=== PATIENT | male | born 1935 | race Caucasian/White ===

== ENCOUNTER → 2018-12-24 | Day surgery (SDC) | payer MEDICARE, SELFPAY | END | disposition home or self-care (01) | PROVIDERS: PCP Internal Medicine; Visit Provider Urology | DX: C67.4 Malignant neoplasm of posterior wall of bladder (principal); I10 Essential (primary) hypertension; I25.10 Atherosclerotic heart disease of native coronary artery without angina pectoris; E78.5 Hyperlipidemia, unspecified; Z85.46 Personal history of malignant neoplasm of prostate; Z79.82 Long term (current) use of aspirin; Z79.899 Other long term (current) drug therapy | CPT/HCPCS: 52204; 88305; 74420; C1769; C1758; J1100; J3010; J2405; J2704; J0690; Q9966; 36415; 80048; 87086 ==

== ENCOUNTER 2019-08-06 11:08 | Emergency (ER) | payer MEDICARE, SELFPAY ==
[2019-08-06 11:41] VITALS: BP 177/87; PULSE 83; RESP 16; TEMP 37.1; O2SAT 98
--- NOTE | 2019-08-06 12:14 | ED.LOWEXIN ---
HPI - Extremity Injury (Lower) General Chief Complaint: Extremity Injury, Lower Stated Complaint: left knee pain Time Seen by Provider: 08/06/19 12:14 Source: patient and RN notes reviewed Mode of arrival: ambulatory Limitations: no limitations History of Present Illness HPI Narrative: This is a 84 years old male presents to the office for an evaluation of left knee pain for a couple day. Pain and swollen is worse this morning. He tried ice and one dose of Advil for pain last night. Denies trauma/injury to his left knee. Denies history of knee replacement or surgery. Related Data Home Medications Medication Instructions Recorded Confirmed chlorthalidone 08/06/19 Allergies Allergy/AdvReac Type Severity Reaction Status Date / Time No Known Allergies Allergy Unknown Unverified 12/18/18 13:29 Review of Systems Review of Systems: Narrative: CONSTITUTIONAL: Denies fever or feeling ill CARDIOVASCULAR: Denies chest pain, palpitation RESPIRATORY: Denies dyspnea GASTROINTESTINAL: Denies nausea, vomiting SKIN: Denies rash MUSCULOSKELETAL:Reports left knee cap pain with swelling without erythema NEUROLOGIC: Denies lightheaded/numbness. PMFSH Comments At time of signature, I agree with nursing past medical, surgical, social and family history. There is no relevant family history pertinent to the presenting complaint. Exam Narrative: Exam Narrative: GENERAL: This is a well-nourished, well-developed patient, in no apparent distress. CARDIOVASCULAR: Regular rate and rhythm without murmurs, gallops, or rubs. RESPIRATORY: Clear to auscultation. Breath sounds equal bilaterally. No wheezes, rales, or rhonchi. GASTROINTESTINAL: Abdomen soft, non-tender, nondistended. Bowel sounds are active. No guarding. NEURO: awake, alert, and oriented to person, place and time. There were no obvious focal neurologic abnormalities. Steady gait EXTREMITIES: Patient is able to bear weight and ambulate with little pain.Left knee without obvious trauma; however there is edematous with warmth to palpation of medial aspect of knee cap.Patient able to extend and flex; however not without pain. Nontender to palpate of the patella. Nontender over the proximal fibular head. Nontender, fullness, or mass of the popliteal fossa. NO quadriceps tenderness. Distal motor and neurovascular status intact. [place] Coma Scale Eye Opening: Spontaneous 4 [place] Coma Scale Motor: Obeys Commands 6 [place] Coma Scale Verbal: Oriented 5 Course Vital Signs Vital signs: Vital Signs Temperature 98.7 F 08/06/19 11:41 Pulse Rate 83 08/06/19 11:41 Respiratory Rate 16 08/06/19 11:41 Blood Pressure 177/87 H 08/06/19 11:41 Pulse Oximetry 98 08/06/19 11:41 Temperature 98.7 F 08/06/19 11:41 Pulse Rate 83 08/06/19 11:41 Respiratory Rate 16 08/06/19 11:41 Blood Pressure 177/87 H 08/06/19 11:41 Pulse Oximetry 98 08/06/19 11:41 MDM - Extremity Injury (Lower) MDM Narrative Medical decision making narrative: X-ray is not indicated at this time since patient did not have direct trauma or injury; patient is in agreement. Pain and swelling is likely due to arthritis, bursitis or tendinitis discussed with patient. Elevated BP noted: patient is informed that blood pressure is reading is high, recommend follow-up with his doctor in 2 weeks to recheck. Discharge instructions reviewed with patient, as well as provided in writing per nursing staff. The instructions also include specific and strict return/GO TO THE ER as well as f/u information. All questions have been answered, and the patient deny any further questions with discharge and discharge plan. Differential Diagnosis Differential diagnosis: Likely acute internal derangement of knee and other (Effusion, bursitis,sprain) Critical Care Time Critical Care Time Critical Care Time: No Discharge Plan Discharge Clinical Impression: Bursitis of left knee Qualifiers: Knee bursitis loca
== END 2019-08-06 12:34 | disposition home or self-care (01) ==
PROVIDERS: Emergency Provider Nurse Practitioner; PCP Internal Medicine
DX: M70.52 Other bursitis of knee, left knee (principal); I10 Essential (primary) hypertension; E78.00 Pure hypercholesterolemia, unspecified
CPT/HCPCS: 99213; G0463

== ENCOUNTER 2019-11-04 09:07 | Outpatient (CLI) | payer MEDICARE, SELFPAY ==
--- NOTE | 2019-11-04 09:09 | ECG_ITS ---
Measurements Intervals [place] Rate: 63 P: 92 VT: 288 QRS: -65 QRSD: 157 T: 64 QT: 500 QTc: 512 Interpretive Statements SINUS RHYTHM WITH FIRST DEGREE AV BLOCK VENTRICULAR PREMATURE COMPLEX RIGHT BUNDLE BRANCH BLOCK LEFT ANTERIOR FASCICULAR BLOCK ST-T WAVE ABNORMALITY IN LATERAL LEADS- CONSIDER ISCHEMIA ABNORMAL ECG Electronically Signed On 11-04-2019 11:31:41 CDT by Everardo Benitez D.O.
[2019-11-04 09:45] LABS: Basophils Absolute Auto 0.1 K/mm3 (0.0-0.1); Eosinophils Absolute Auto 0.2 K/mm3 (0-0.3); Eosinophils Percent Auto 2.6 % (0-4.4); Hematocrit 38.1 % (42.0-52.0); Hemoglobin 13.2 g/dL (14.0-18.0); Immature Granulocyte Absolute 0.01 K/mm3 (0.00-0.031); Immature Granulocyte Percent A 0.2 % (0-0.5); Lymphocytes Absolute Auto 1.92 K/mm3 (0.9-3.2); Lymphocytes Percent Auto 30.7 % (18.3-44.2); Mean Corpuscular HGB Conc 34.6 g/dl (32-36); Mean Corpuscular Hemoglobin 32.7 pg (26-34); Mean Corpuscular Volume 94.3 fl (80-100); Mean Platelet Volume 10.7 fl (7.4-10.4); Monocytes Absolute Auto 0.4 K/mm3 (0.1-0.6); Monocytes Percent Auto 6.1 % (2.6-8.5); Neutrophils Absolute Auto 3.7 K/mm3 (1.3-6.7); Neutrophils Percent Auto 59.4 % (45.5-73.1); Platelet Count Result 141 k/mm3 (150-375); Red Blood Count 4.04 M/mm3 (4.6-6.20); Red Cell Distribution Width 11.9 % (11.5-14.5); White Blood Count 6.3 K/mm3 (4.5-10.0)
[2019-11-04 09:57] LABS: Anion Gap 9 mmol/L (8-16); Blood Urea Nitrogen 33 mg/dL (9-20); Carbon Dioxide 27 mmol/L (22-30); Chloride 101 mmol/L (98-107); Estimated Glomerular Filt Rate 25; Glucose 115 mg/dL (75-110); Potassium 4.1 mmol/L (3.4-5.0); Sodium 137 mmol/L (137-145)
[2019-11-04 09:58] LABS: INR 1.2; Prothrombin Time 14.4 Seconds (11.1-14.7)
[2019-11-04 09:59] LABS: Partial Thromboplastin Time 31.7 SECONDS (22.3-36.8)
== END 2019-11-04 09:08 | disposition home or self-care (01) ==
PROVIDERS: PCP Internal Medicine; Visit Provider Urology
DX: Z01.818 Encounter for other preprocedural examination (principal); C67.9 Malignant neoplasm of bladder, unspecified; I10 Essential (primary) hypertension; R94.31 Abnormal electrocardiogram [ECG] [EKG]
CPT/HCPCS: 36415; 80048; 85025; 85610; 85730; 87086; 93005

== ENCOUNTER 2019-11-08 01:27 | Outpatient (CLI) | payer MEDICARE, SELFPAY ==
[2019-11-08 18:03] LABS: SARS-CoV-2 RNA PCR Negative
== END 2019-11-08 01:28 | disposition home or self-care (01) ==
LOC: ANHCOVIDDT 01:28
PROVIDERS: PCP Internal Medicine; Visit Provider Urology
DX: Z01.812 Encounter for preprocedural laboratory examination (principal); Z20.828 Contact with and (suspected) exposure to other viral communicable diseases
CPT/HCPCS: 87635; C9803; U0003

== ENCOUNTER 2019-11-11 01:30 | Day surgery (SDC) | payer MEDICARE, SELFPAY ==
[2019-10-29 13:36] VITALS: BMI 26.7
[2019-11-11] VITALS (8 sets, daily range): BP systolic 98–174; BP diastolic 59–88; PULSE 74–91; RESP 13–20; TEMP 36.4–36.7; O2SAT 95–100
--- NOTE | ~2019-11-11 | XR_ITS ---
EXAMINATION: XR retrograde pyelo w/stent RT DATE: 11/11/2019 08:12 INDICATION: Right-sided stone. TECHNIQUE: Fluoroscopic images from a right internal ureteral stent placement are submitted for kathie cao 23 seconds of fluoroscopy time. FINDINGS: No prior studies for comparison. There is a right double-J internal ureteral stent projecting in expected position, with proximal [place] loop at the level of the renal pelvis and distal loop in the pelvis within the bladder lumen. IMPRESSION: 1. Right internal ureteral stent placement. Please refer to real-time procedural findings for lizeth leonardo. Reviewed, dictated and finalized at location B. IMPRESSION: 1. Right internal ureteral stent placement. Please refer to real-time procedu ral findings for details.
[2019-11-11] MEDS: LACTATED RINGERS 1,000 ML 30 ML IV CONT (06:35)
--- NOTE | 2019-11-11 07:15 | WPDANESEPPF ---
Anes - Initial Pre Proc Eval Procedure: Operation Date: 11/11/19 07:30 Proposed Procedures p Cystoscopy, Right Retrograde Pyelogram, Right Ureteroscopy With Possible Stent Placement - Zurdo Su MD s Trans Urethral Resection Bladder Tumor - Zurdo Su MD Date/Time: 11/11/19 07:15 Surgeon: Zurdo Su MD Pre Op Diagnosis: Prostate CA, Bladder CA Patient Data Age: 84 Gender: M Height: 6 ft 3 in Weight: 90.1 kg Last Vital Signs Temp 98.1 F 11/11/19 06:19 Pulse 91 11/11/19 06:19 Resp 14 11/11/19 06:19 BP 174/78 H 11/11/19 06:19 Pulse Ox 95 11/11/19 06:19 Allergies Allergy/AdvReac Type Severity Reaction Status Date / Time No Known Allergies Allergy Unknown Verified 11/11/19 06:40 Home Medications Medication Instructions Recorded Confirmed Type chlorthalidone 25 mg PO QAM 08/06/19 11/11/19 History amlodipine 5 mg PO QAM 10/29/19 11/11/19 History aspirin [Aspir-81] 81 mg PO DAILY 10/29/19 11/11/19 History metoprolol succinate 100 mg PO QAM 10/29/19 11/11/19 History multivitamin [Multiple Vitamins] 1 tablet PO DAILY 10/29/19 11/11/19 History potassium chloride 20 meq PO QAM 10/29/19 11/11/19 History pravastatin 80 mg PO HS 10/29/19 11/11/19 History quinapril 40 mg PO BID 10/29/19 11/11/19 History terazosin 2 mg PO BID 10/29/19 11/11/19 History Patient hx anesthesia problems: none Family hx anesthesia problems: none PMFSH Past Medical History Medical History (Updated 11/11/19 @ 07:15 by Torito West MD) Hyperlipidemia Hypertension Social History Social History Smoking status: Former smoker Tobacco type: cigars Smoking end date: 02/26/79 Additional smoking assessment comments: SMOKED ~ 1 CIGAR /WEEK FOR ~ 10 YEARS Alcohol intake: current Alcohol use details: VERY RARELY Substance use: never Living arrangements: with family Spiritual care concerns: No Anes - Eval Final PreProcedure Day of Procedure 11/11/19 07:15 Patient weight: normal Heart: regular rate and rhythm Lungs: clear to auscultation Airway: Mallampati scale class II Neurological: alert and oriented Last oral intake: >/= 8 hours ASA classification: III Emergent: no Anesthetic plan: proceed Anesthesia type and monitoring: general LMA and standard monitoring Informed Consent: The patient's anesthetic plan and its attendant risks and benefits were discussed with the patient/family/POA. Questions were solicited and answers provided to the satisfaction of the patient/family/POA.
--- NOTE | 2019-11-11 07:23 | WPDHPUPDATE1 ---
History and Physical Update Update Date/Time: 11/11/19 07:23 History and Physical has been reviewed, including an updated exam of the patient. There are NO changes in the patient's condition. Risks, benefits, and alternatives have been discussed and questions answered. Patient agrees to proceed with procedure.
--- NOTE | 2019-11-11 08:15 | P.OP_ITS ---
Procedure Note - Detailed Date of procedure: 11/11/19 Pre-op diagnosis: Prostate CA, Bladder CA Post-op diagnosis: same Procedure performed: Urethral dilation, cystoscopy, right retrograde pyelogram, transurethral resection of bladder tumor overlying right ureteral orifice, right ureteral stent placement 6 Uzbek contour stent Description of procedure: Patient is taken to the operative suite and correctly identified. Once anesthesia was obtained he is placed in the dorsal lithotomy position and prepped and draped usual sterile fashion. Urethra was dilated to 26 Uzbek. Twenty-two Uzbek cystoscope is inserted. There is no urethral strictures. Bladder itself has no discrete papillary tumors however the right ureteral orifice is is raised and has the appearance of a marble. The orifice appears somewhat friable in addition. A [place] was placed and a retrograde pyelogram was performed. It was noted that there was a significant amount of dilatation just proximal to where the intramural ureter is. We could not get contrast up into the kidney at this point. We exchanged the scope up for a 24 Uzbek resectoscope sheath. The right ureteral orifice and tumor was resected. It was fairly hard in nature. Prior resection had simply revealed granulation tissue. The right ureteral orifice was again on removed. This is a 2nd procedure that this has been performed. We then placed a [place] all the way up to the kidney did a pyelogram which revealed a dilated renal pelvic and calices. A 6 Uzbek contour stent was then placed with the proximal end coiled in the renal pelvis and the distal in the bladder. Bladder was drained 2% viscous lidocaine was placed in the urethra. Patient is taken recovery room stable condition. Will call for results in a week. Will need to discuss possible distal ureterectomy with reimplantation if pathology shows tumor or this continues to recur. Anesthesia: GLMA Surgeon: Zurdo Su MD Estimated blood loss (mL): 0 Drains: Yes Packing: No Pathology: yes Complications: No immediate complications Condition: stable Disposition: PACU
== END 2019-11-11 09:40 | disposition home or self-care (01) ==
PROVIDERS: PCP Internal Medicine; Visit Provider Urology
PROC: (CPT 52352; principal; 2019-11-11 07:30)
PROC: 0TBB8ZZ Excision of Bladder, Via Natural or Artificial Opening Endoscopic (ICD-10-PCS; CPT 52234; 2019-11-11 07:30)
DX: C67.6 Malignant neoplasm of ureteric orifice (principal); C61 Malignant neoplasm of prostate; I10 Essential (primary) hypertension; E78.5 Hyperlipidemia, unspecified; Z79.82 Long term (current) use of aspirin; Z87.891 Personal history of nicotine dependence
CPT/HCPCS: 52234; 74420; 88305; 88307; A9270; C1758; C1769; C2617; J1100; J2405; J2704; J3010; J7120; Q9966

== ENCOUNTER 2019-11-18 07:38 | Emergency (ER) | payer MEDICARE, SELFPAY ==
[2019-11-18] VITALS (7 sets, daily range): BP systolic 115–152; BP diastolic 68–77; PULSE 72–82; RESP 12–18; TEMP 36.7; O2SAT 97
--- NOTE | ~2019-11-18 | XR_ITS ---
EXAMINATION: XR chest 2V EXAM DATE: 11/18/2019 08:24 INDICATION: Syncope. TECHNIQUE: Frontal and lateral projections of the chest obtained and reviewed. Comparison is made to prior examination from 09/16/2006. FINDINGS: The lungs are clear. There are no pleural effusions. The cardiomediastinal silhouette is within normal limits. There is no pneumothorax suspected. The bones and soft tissues are unremarkab le. There is aortic arteriosclerosis. IMPRESSION: No acute cardiopulmonary findings. Reviewed, dictated and finalized at location B.
--- NOTE | ~2019-11-18 | CT_ITS ---
EXAMINATION: CT brain wo con DATE: 11/18/2019 08:21 INDICATION: Syncope. TECHNIQUE: Computed tomography (CT) of the head was performed without intravenous contrast. The mA wa s adjusted according to patient size. Iterative reconstruction technique was employed. The dose-lengt h product was 681.00 mGy-cm. COMPARISON: Head CT 09/16/2006 FINDINGS: There is an acute subarachnoid hemorrhage in the right suprasellar cistern and anterior int erhemispheric fissure and anterior to left frontal lobe. There is no acute ischemic infarct or abnorm al mass lesion. The ventricles are normal in size. There is posterior scalp soft tissue swelling. The orbits are normal. There is complete opacification of the visualized portion of right maxillary sinu s with thickening and sclerosis of the sinus quijano, consistent with chronic sinusitis. The mastoid ai r cells are normal. IMPRESSION: 1. Acute subarachnoid hemorrhage in right suprasellar cistern and anterior interhemispheric fissure a nd anterior to left frontal lobe. I called this result to Dr. Matthew. 2. Chronic sinusitis. Reviewed, dictated and finalized at location A. IMPRESSION: 1. Acute subarachnoid hemorrhage in right suprasellar cistern and anterior inte rhemispheric fissure and anterior to left frontal lobe. I called this result to Dr. Matthew. 2. Chronic sinusitis.
--- NOTE | 2019-11-18 08:15 | ED.SYNCOPE ---
HPI - Syncope General Chief Complaint: Syncope Stated Complaint: SYNCOPAL EPISODE Time Seen by Provider: 11/18/19 07:52 History of Present Illness HPI narrative: Patient is an 84-year-old male who presents the ER with syncope. Woke up this morning was going on his morning walk when he lost consciousness at the dorm woke up to his standing over him. He does not remember any prodrome of rapid heart rate or lightheadedness. He is having no chest pain. He has no confusion at this time but does have mild discomfort over the posterior aspect of his head where he struck the ground. There is a laceration present. He is not on any blood thinners. Patient had a procedure yesterday to excise a bladder tumor. He has had this previously. Reports his urine is little bloody but he is not passing large clots. He has had no dysuria/fever/chills. Related Data Home Medications Medication Instructions Recorded Confirmed chlorthalidone 25 mg PO QAM 08/06/19 11/11/19 amlodipine 5 mg PO QAM 10/29/19 11/11/19 aspirin [Aspir-81] 81 mg PO DAILY 10/29/19 11/11/19 metoprolol succinate 100 mg PO QAM 10/29/19 11/11/19 multivitamin [Multiple Vitamins] 1 tablet PO DAILY 10/29/19 11/11/19 potassium chloride 20 meq PO QAM 10/29/19 11/11/19 pravastatin 80 mg PO HS 10/29/19 11/11/19 quinapril 40 mg PO BID 10/29/19 11/11/19 terazosin 2 mg PO BID 10/29/19 11/11/19 Allergies Allergy/AdvReac Type Severity Reaction Status Date / Time No Known Allergies Allergy Unknown Verified 11/18/19 07:38 Review of Systems Review of Systems: All systems reviewed & are unremarkable except as noted in HPI and below Constitutional: Constitutional: Denies chills, Denies fever(s) and Denies weakness ENT: Denies nasal congestion and Denies sore throat Cardiovascular: Cardiovascular: Denies chest pain, Denies rapid heart rate and Denies radiating jaw, neck or arm pain Respiratory: Respiratory: Denies cough and Denies dyspnea Neurologic: Reports syncope, Denies headache(s), Denies focal weakness and Denies numbness [facility] Past Medical History Medical History (Updated 11/18/19 @ 09:19 by Diego Matthew MD) Hyperlipidemia Hypertension Surgical History Surgical History (Updated 11/18/19 @ 08:18 by Diego Matthew MD) H/O cystoscopy bladder tumor excision Social History Social History Smoking status: Former smoker Tobacco type: cigars Smoking end date: 02/26/79 Additional smoking assessment comments: SMOKED ~ 1 CIGAR /WEEK FOR ~ 10 YEARS Alcohol intake: current Substance use: never Gender identity (if verbalized by the patient): Male Sexual Orientation (if Verbalized by the Patient): Straight or Heterosexual Spiritual care concerns: No Exam Narrative: Exam Narrative: GENERAL: Well-appearing, well-nourished, and in no acute distress. HEAD: Normocephalic, small hematoma with a nickel sized abrasion over posterior aspect of the head. Inferior to this there is a 3 cm horizontal laceration is superficial.. EYES: PERRL and EOMI. NECK: Supple. No midline tenderness. CHEST: Clear to auscultation. No respiratory distress. HEART: Regular rate and rhythm. Normal peripheral pulses. ABDOMEN: Soft, nontender, nondistended. EXTREMITIES: Normal range of motion. No edema. NEURO: Alert and oriented x3. PSYCH: Normal mood and affect. Course Course Emergency Course: Patient and family informed of results. Patient accepted for transfer to [facility] ER. Patient stable. She was orthostatic. Fluids running. Vital Signs Vital signs: Vital Signs Pulse Rate 72 11/18/19 07:40 Respiratory Rate 16 11/18/19 07:40 Blood Pressure 152/77 H 11/18/19 07:40 Pulse Oximetry 97 11/18/19 07:40 Temperature 98.0 F 11/18/19 08:01 Pulse Rate 82 11/18/19 08:36 Respiratory Rate 12 11/18/19 08:01 Blood Pressure 152/71 H 11/18/19 08:36 Pulse Oximetry 97 11/18/19 08:01 [facility] -
[2019-11-18 08:19] LABS: Basophils Percent Auto 0.7 % (0.2-1.2); Eosinophils Absolute Auto 0.3 K/mm3 (0-0.3); Eosinophils Percent Auto 4.4 % (0-4.4); Hematocrit 37.4 % (42.0-52.0); Hemoglobin 13.2 g/dL (14.0-18.0); Immature Granulocyte Absolute 0.02 K/mm3 (0.00-0.031); Immature Granulocyte Percent A 0.4 % (0-0.5); Lymphocytes Absolute Auto 1.34 K/mm3 (0.9-3.2); Lymphocytes Percent Auto 23.5 % (18.3-44.2); Mean Corpuscular HGB Conc 35.3 g/dl (32-36); Mean Corpuscular Hemoglobin 33.2 pg (26-34); Mean Platelet Volume 10.7 fl (7.4-10.4); Monocytes Absolute Auto 0.4 K/mm3 (0.1-0.6); Monocytes Percent Auto 6.3 % (2.6-8.5); Neutrophils Absolute Auto 3.7 K/mm3 (1.3-6.7); Neutrophils Percent Auto 64.7 % (45.5-73.1); Platelet Count Result 151 k/mm3 (150-375); Red Blood Count 3.98 M/mm3 (4.6-6.20); White Blood Count 5.7 K/mm3 (4.5-10.0)
[2019-11-18 08:31] LABS: Anion Gap 8 mmol/L (8-16); Blood Urea Nitrogen 40 mg/dL (9-20); Carbon Dioxide 23 mmol/L (22-30); Chloride 103 mmol/L (98-107); Estimated CRCL calculation 26 ml/min; Estimated Glomerular Filt Rate 26; Glucose 114 mg/dL (75-110); Potassium 4.2 mmol/L (3.4-5.0); Sodium 134 mmol/L (137-145)
[2019-11-18 08:43] LABS: Troponin I 0.021 ng/mL (0.000-0.034)
[2019-11-18] MEDS: SODIUM CHLORIDE 0.9% IV 1,000 ML 999 ML IV CONT (09:14)
--- NOTE | 2019-11-18 09:26 | PC.NURSE ---
Pt neuro intact. Pt son at bedside. Pt aware of POC. Pt questions answered. Pt on monitor. [facility] called and [facility] arranged to take pt to [facility].
[2019-11-18 09:34] LABS: Add Urine Microscopic? YES; Appearance Urine Cloudy (Clear); Bilirubin Urine Negative (Negative); Blood Urine 3+ (Negative); Color Urine Yellow (Yellow); Glucose Urine UA Negative (Negative); Ketones Urine Negative (Negative); Leukocyte Esterase Ur 2+ LEU/UL (Negative); Mucus Urine Rare /lpf; Nitrate Urine Negative (Negative); Protein Urine 2+ mg/dL (Negative); RBC Urine >75 /hpf (0-2); Specific Grav Ur 1.013 (1.001-1.035); Squamous Epithelial Cell Urine Rare /hpf (Few); Urobilinogen Urine Negative mg/dL (<2.0); WBC Urine 21-30 /hpf
== END 2019-11-18 09:47 | disposition short-term general hospital (02) ==
PROVIDERS: Emergency Provider Emergency Medicine; PCP Internal Medicine
DX: I60.9 Nontraumatic subarachnoid hemorrhage, unspecified (principal); I95.1 Orthostatic hypotension; N17.9 Acute kidney failure, unspecified; E78.5 Hyperlipidemia, unspecified; I10 Essential (primary) hypertension; Z87.891 Personal history of nicotine dependence; J32.9 Chronic sinusitis, unspecified; Z79.82 Long term (current) use of aspirin
CPT/HCPCS: 36415; 70450; 71046; 80048; 81001; 84484; 85025; 87086; 96360; 99291; J7030

== ENCOUNTER 2019-12-23 09:41 | Outpatient (CLI) | payer MEDICARE, SELFPAY ==
--- NOTE | ~2019-12-23 | PE_ITS ---
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 TECHNIQUE: Blood glucose level was 110 mg/dL. 8.076 mCi of 18-fluorodeoxyglucose (18-FDG) was adminis tered i.v. Low dose computed tomography (CT) images were acquired from the base of the brain to the p roximal thighs for attenuation correction and anatomic localization. Positron emission tomography (PE T) images were acquired in the same distribution beginning 70 minutes after injection. Images includi ng fused PET/CT images were reconstructed in axial, coronal, and sagittal planes. Automated exposure control technique was employed. The dose-length product was 529.16mGy-cm. COMPARISON: None FINDINGS: Head/neck: There is symmetric increased activity in the oral cavity, submandibular glands, laryngeal muscles and ocular muscles without CT correlate, likely physiologic. No pathologically enlarged cervical lymphad enopathy or suspicious foci of increased FDG uptake in the visualized head or neck. Chest: Respiratory motion in the lungs which limits evaluation of fine pulmonary parenchymal detail as well as definitive measurement of an approximately 4-5 mm right lower lobe nodule which is without evident FDG uptake. Calcified left lower lobe nodule consistent with old granulomatous disease. Heart size i s normal. Atherosclerotic coronary artery calcifications. Aortic valve calcification. Thoracic aorta is normal in caliber. Calcified bilateral hilar and mediastinal lymph nodes consistent with old granu lomatous disease. No pathologically enlarged thoracic lymphadenopathy. There is mild increased FDG up take associated with a 7.3 x 2.5 x 5.8 cm posterior right chest wall mass situated between the ribs a nd the medial margin of the serratus anterior muscle and scapula. The mass demonstrates a striated pa ttern of soft tissue and fat attenuation with location and appearance most consistent with elastofibr karyn dorsi. 5.1 x 3.4 x 1.2 cm homogeneous fat attenuation lipoma in paraspinal musculature posterior to T8 and T9. Abdomen/pelvis/proximal thighs: Physiologic renal accumulation and excretion of FDG activity in the kidneys, bladder and along portio ns of ureters. Right internal ureteral stent with loops formed in the bladder and in the right renal pelvis. Normal degree and heterogenous pattern of increased uptake throughout the liver without radio logic correlate or dominant FDG avid lesion. Scattered hepatic and splenic calcifications consistent with old granulomatous disease. The gallbladder, pancreas and bilateral adrenal glands are normal. Mi ld uptake scattered throughout the bowels without radiologic correlate, also likely physiologic. Post operative change of prior left inguinal hernia repair. There is calcified atherosclerosis of the aort a and many of the other arteries. No other abnormal foci of increased FDG uptake or pathologically e nlarged lymphadenopathy in the abdomen, pelvis or proximal thighs. Musculoskeletal: Severe lower cervical spondylosis. Mild to moderate thoracic and lumbar spondylosis. No suspicious ly tic, blastic or FDG avid bone lesions. Small focus of mild increased FDG uptake in the soft tissues a t the right antecubital fossa likely extravasation at the site of injection. IMPRESSION: 1. No lesion suspicious for metastatic disease. 2. Mild FDG uptake associated with a mixed soft tissue and fat attenuation posterior right chest wall mass most consistent with benign elastofibroma dorsi. 3. Indeterminate 4-5 mm right lower lobe nodule without evident FDG uptake likely sequela of old gran ulomatous disease. If the patient is low risk for lung cancer, no follow-up is needed. If the patient is high risk (i.e., history of smoking or asbestos or significant radiation exposure), optional foll ow-up chest CT could be considered at 12 months.
[2019-12-23 10:03] LABS: Glucose Point of Care 110 (65-105)
== END 2019-12-23 09:42 | disposition home or self-care (01) ==
PROVIDERS: PCP Internal Medicine; Visit Provider Urology
DX: C67.0 Malignant neoplasm of trigone of bladder (principal)
CPT/HCPCS: 78815; A9552

== ENCOUNTER 2020-06-17 07:42 | Outpatient (CLI) | payer MEDICARE, SELFPAY ==
--- NOTE | ~2020-06-17 | CT_ITS ---
EXAMINATION: CT abdomen pelvis wo/w con DATE: 06/17/2020 08:36 INDICATION: Malignant neoplasm of urinary bladder trigone TECHNIQUE: Computed tomography (CT) of the abdomen and pelvis was performed without and subsequently with 130 cc Omnipaque 350 intravenous contrast. Automated exposure control and iterative reconstructi on technique were employed. Exam dose: 1241.61 mGy-cm total exam DLP. COMPARISON: 11/21/2018 CT abdomen pelvis 12/23/2019 PET/CT scan FINDINGS: Mild bibasilar atelectasis and small bilateral pleural effusions. Bilateral lower lobe calcified pulmonary granuloma and calcified hepatic and splenic granulomas, cons istent with old granulomatous disease. Cardiomegaly. No pericardial effusion. No hepatic, splenic, pancreatic or adrenal or right renal space-occupying mass lesion. 12 mm left natasha al cyst. The gallbladder is present. No bile duct or pancreatic duct dilatation. There is mild left hydronephrosis. Status post cystectomy and ileostomy. There is extensive abdominal aortic and bilateral renal artery as well as iliac and femoral artery ca lcifications. No abdominal aortic aneurysm. No intraperitoneal or retroperitoneal or pelvic mass lesi on or adenopathy is evident. There is a small amount of free fluid in the dependent pelvis. There are nondilated fluid containing small bowel segments and small bowel air-fluid levels. There is no appar ent obstruction or intraperitoneal free air. Status post left inguinal herniorrhaphy. Degenerative changes of the included lower thoracic and lumbar spine. No suspicious osteolytic or ost eoblastic lesions. Bilateral hip osteoarthritis. IMPRESSION: Status post cystectomy and ileostomy for history of urinary bladder malignancy Mild left hydronephrosis Cardiomegaly 12 mm left renal cyst Reviewed, dictated and finalized at Location [facility]. Reviewed, dictated and finalized at location A. IMPRESSION: Status post cystectomy and ileostomy for history of urinary bladde r malignancy Mild left hydronephrosis Cardiomegaly 12 mm left renal cyst
[2020-06-17 08:13] LABS: Estimated Glomerular Filt Rate 30
== END 2020-06-17 07:43 | disposition home or self-care (01) ==
PROVIDERS: PCP Internal Medicine; Visit Provider Urology
DX: C67.0 Malignant neoplasm of trigone of bladder (principal); N13.30 Unspecified hydronephrosis; I51.7 Cardiomegaly; N28.1 Cyst of kidney, acquired
CPT/HCPCS: 74178; Q9967

== ENCOUNTER → 2021-07-04 08:02 | Outpatient (REF) | payer MEDICARE, SELFPAY | LOC: ANHLAB 08:02 | PROVIDERS: PCP Internal Medicine; Visit Provider Nurse Practitioner | DX: C44.41 Basal cell carcinoma of skin of scalp and neck (principal) | CPT/HCPCS: 88305; 88331 ==

== ENCOUNTER 2022-02-14 10:24 | Outpatient (CLI) | payer MEDICARE, SELFPAY ==
--- NOTE | ~2022-02-14 | US_ITS ---
Renal-Bladder ultrasound Clinical History: Chronic kidney disease Technique: Real-time sonographic imaging of the kidneys and urinary bladder was performed. Findings: The right kidney measures 8.8 cm in length and the left kidney measures 10.5 cm. There is n o hydronephrosis or renal calculus identified. Renal cortical echogenicity is increased, with probabl e bilateral cortical thinning. No renal mass lesion is identified. The urinary bladder has been previously resected. Impression: Increased renal echogenicity is compatible with chronic medical renal disease. No hydronephrosis. Reviewed, dictated and finalized at location M. [employer] Impression: Increased renal echogenicity is compatible with chronic medical renal disease. No hydronephrosis.
== END 2022-02-14 10:25 | disposition home or self-care (01) ==
PROVIDERS: PCP Internal Medicine; Visit Provider Internal Medicine Nephrology
DX: N18.4 Chronic kidney disease, stage 4 (severe) (principal)
CPT/HCPCS: 76775

== ENCOUNTER 2022-07-11 09:11 | Outpatient (CLI) | payer MEDICARE, SELFPAY ==
--- NOTE | ~2022-07-11 | PE_ITS ---
EXAMINATION: PET skull to mid thigh DATE: 07/11/2022 12:09 INDICATION: Lung nodule TECHNIQUE: Blood glucose level was 102 mg/dL. 9.577 mCi of 18-fluorodeoxyglucose (18-FDG) was adminis tered i.v. Low dose computed tomography (CT) images were acquired from the base of the brain to the p roximal thighs for attenuation correction and anatomic localization. Positron emission tomography (PE T) images were acquired in the same distribution beginning 68 minutes after injection. Images includi ng fused PET/CT images were reconstructed in axial, coronal, and sagittal planes. Automated exposure control technique was employed. The dose-length product was 554.65mGy-cm. COMPARISON: CT abdomen pelvis dated 06/17/2020 and PET/CT dated 12/23/2019 FINDINGS: Head/neck: There is symmetric increased activity in the oral cavity, palatine tonsils, laryngeal muscles and ocu lar muscles without CT correlate, likely physiologic. No significant interval change in a 2.4 cm hypo dense right thyroid nodule without abnormal increased FDG uptake. No pathologically enlarged cervical lymphadenopathy or suspicious foci of increased FDG uptake in the visualized head or neck. Chest: Calcified left lower lobe nodule along with calcified bilateral hilar and mediastinal lymph nodes nod es consistent with old granulomatous disease. No significant change in a 4 mm right lower lobe nodule without evident FDG activity. No new, enlarging or FDG avid pulmonary nodules. Mild cardiomegaly. At herosclerotic coronary artery calcification. No pericardial effusion. Dual-lead cardiac pacemaker wit h lead tips at the right atrial appendage and at the apex of the right ventricle. Thoracic aorta is n ormal in caliber. No pathologically enlarged or FDG avid thoracic lymphadenopathy. Small sliding-type hiatal hernia. Slight interval increase in size of a now 7.8 x 7.2 x 3.4 cm mixed soft tissue and fa t attenuation lenticular mass with mild increased FDG uptake situated in the posterior right chest wa ll between the ribs and the medial margin of the serratus anterior muscle and scapula is consistent w ith elastofibroma dorsi. Slight decrease in size of a 4.8 x 3.0 x 1.0 cm homogeneously fat attenuatio n lipoma without corresponding FDG activity in the paraspinal musculature posterior to T8 and T9. Mil d bilateral gynecomastia. 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 Bilateral mild hydronephros is. Several splenic and a couple hepatic calcifications consistent with old granulomatous disease. No rmal degree and heterogenous pattern of increased uptake throughout the liver without radiologic trinity elate or dominant FDG avid lesion. The gallbladder, pancreas, spleen and bilateral adrenal glands are normal. Mild uptake scattered throughout the bowels without radiologic correlate, also likely physio logic. Normal appendix. Postoperative change of prior left inguinal hernia repair. There is calcified atherosclerosis of the aorta and many of the other arteries. No other abnormal foci of increased FD G uptake or pathologically enlarged lymphadenopathy in the abdomen, pelvis or proximal thighs. Musculoskeletal: Severe lower cervical and mild to moderate thoracic and lumbar spondylosis. Mild uptake overlying the right greater trochanter consistent with mild trochanteric bursitis. Mild fatty atrophy and linear h eterotopic ossification along the proximal left rectus femoris femoris muscle likely sequela of chron ic partial tear. Mild increased uptake at the L1 and anterior L4 vertebral bodies with maximal SUV le vels of 4.0 and 6.4 respectively but without radiologic correlate. There is also mild increased FDG u ptake in the subtrochanteric proximal left femur were there is subtle increased density to the bone m arrow and maximal SUV of
[2022-07-11 09:36] LABS: Glucose Point of Care 102 mg/dl (65-105)
== END 2022-07-11 09:12 | disposition home or self-care (01) ==
PROVIDERS: PCP Internal Medicine; Visit Provider Urology
DX: R91.1 Solitary pulmonary nodule (principal); I51.7 Cardiomegaly; N13.30 Unspecified hydronephrosis; R91.8 Other nonspecific abnormal finding of lung field
CPT/HCPCS: 78815; A9552

== ENCOUNTER 2022-08-18 09:36 | Outpatient (CLI) | payer MEDICARE, SELFPAY ==
--- NOTE | ~2022-08-18 | XR_ITS ---
AP and lateral views of the left femur Clinical History: Limited lesion Findings: No acute fracture or dislocation is seen. Osseous alignment is anatomic. Visualized joint s paces are grossly preserved. Vascular calcifications are present. Impression: No lytic lesion evident. Reviewed, dictated and finalized at location . Impression: No lytic lesion evident.
--- NOTE | ~2022-08-18 | XR_ITS ---
AP and lateral views of the right femur Clinical History: Lytic bone lesion Findings: No acute fracture or dislocation is seen. Osseous alignment is anatomic. There is mild dege nerative change of the right hip joint. Vascular calcifications are present. Impression: No lytic lesion evident. Mild degenerative change of the right hip joint. Reviewed, dictated and finalized at location . Impression: No lytic lesion evident. Mild degenerative change of the right hip joint.
== END 2022-08-18 09:37 | disposition home or self-care (01) ==
PROVIDERS: PCP Internal Medicine; Visit Provider Urology
DX: M89.9 Disorder of bone, unspecified (principal)
CPT/HCPCS: 73552

== ENCOUNTER 2023-09-10 09:10 | Outpatient (CLI) | payer MEDICARE, SELFPAY ==
[2023-09-10 09:40] LABS: Hematocrit 40.6 % (42.0-52.0); Hemoglobin 13.9 g/dL (14.0-18.0); Mean Corpuscular HGB Conc 34.2 g/dl (32-36); Mean Corpuscular Hemoglobin 33.7 pg (26-34); Mean Corpuscular Volume 98.5 fl (80-100); Platelet Count Result 154 k/mm3 (150-375); Red Blood Count 4.12 M/mm3 (4.6-6.20); Red Cell Distribution Width 12.2 % (11.5-14.5); White Blood Count 7.7 K/mm3 (4.5-10.0)
[2023-09-10 09:58] LABS: Albumin Level 4.8 g/dL (3.5-5.1); Anion Gap 12 mmol/L (4-12); Blood Urea Nitrogen 39 mg/dL (9-20); Calcium 9.1 mg/dL (8.4-10.2); Carbon Dioxide 21 mmol/L (22-30); Chloride 103 mmol/L (98-107); Estimated Glomerular Filt Rate 28; Glucose 107 mg/dL (65-110); Phosphorus 4.3 mg/dL (2.5-4.5); Sodium 136 mmol/L (137-145)
[2023-09-10 10:15] LABS: Creatinine Urine 45.1 mg/dL; Total Protein Urine Random 25 mg/dL; Ur Ttl Prot Creatinine Ratio 0.55 mg/mg (0-0.20)
[2023-09-10 10:16] LABS: Parathyroid Intact 87.3 pg/mL (7.5-53.5)
[2023-09-10 10:22] LABS: Vitamin D 25 Hydroxy 33.4 ng/mL
== END 2023-09-10 09:11 | disposition home or self-care (01) ==
LOC: ANHLAB 09:13
PROVIDERS: PCP Internal Medicine; Visit Provider Internal Medicine Nephrology
DX: E21.1 Secondary hyperparathyroidism, not elsewhere classified (principal); E66.3 Overweight; E87.1 Hypo-osmolality and hyponatremia; N18.4 Chronic kidney disease, stage 4 (severe)
CPT/HCPCS: 36415; 80069; 82306; 82570; 83970; 84156; 85027

== ENCOUNTER 2023-09-22 12:31 | Emergency (ER) | payer MEDICARE, SELFPAY ==
[2023-09-22 12:37] VITALS: BP 170/82; PULSE 69; RESP 18; TEMP 36.8; O2SAT 100
--- NOTE | 2023-09-22 15:24 | ED.GENADULT ---
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 Today patient knows that he had some minor bleeding around his urostomy site was concerns he wants to get evaluated today. Denies any pain at the stoma site, no new harsh chemicals or any kind of detergents that were used to clean the stoma. He was otherwise in his normal state of health and denies any fever, chills, back pain, weakness, nausea, vomiting, abdominal pain. He had some minor oozing of blood around the stoma site which has since resolved and he has no urinary complaints whatsoever. Related Data Home Medications Medication Instructions Recorded Confirmed aspirin 81 mg tablet,delayed 81 mg PO DAILY 10/29/19 04/02/23 release (Aspir-) multivitamin (Multiple Vitamins 1 tablet PO DAILY 10/29/19 04/02/23 tablet) potassium chloride 20 mEq 20 meq PO QAM 10/29/19 04/02/23 tablet,extended release(part/cryst) pravastatin 80 mg tablet 80 mg PO HS 10/29/19 04/02/23 apixaban 2.5 mg tablet (Eliquis) 2.5 mg PO BID 07/04/21 04/02/23 isosorbide mononitrate 30 mg 30 mg PO DAILY 07/04/21 04/02/23 tablet,extended release 24 hr losartan 100 mg tablet 100 mg PO DAILY 07/04/21 04/02/23 amlodipine 5 mg tablet 5 mg PO DAILY 06/06/22 04/02/23 hydralazine 10 mg tablet 10 mg PO TID 06/06/22 04/02/23 furosemide 40 mg tablet 60 mg PO QAM 03/22/23 04/02/23 Allergies Allergy/AdvReac Type Severity Reaction Status Date / Time No Known Allergies Allergy Unknown Verified 03/22/23 08:19 Review of Systems Review of Systems: As mentioned above in the HPI and otherwise negative [facility] Past Medical History Medical History Bladder cancer Heart disease Hyperlipidemia Hypertension Pacemaker Prostate cancer Surgical History Surgical History H/O cystoscopy bladder tumor excision Family History Family History Sibling Cancer Heart disease Social History Social History Smoking status: Never smoker Tobacco type: cigars Smoking end date: 02/26/79 Additional smoking assessment comments: SMOKED ~ 1 CIGAR /WEEK FOR ~ 10 YEARS Alcohol intake: current Alcohol use details: VERY RARELY Substance use: never Do You Feel Safe in your Home?: Yes Lack of Transportation: No Lack of Food: Never True Current Housing: Decline to Answer Concerned About Future Housing: No Difficulty Paying Gas/Electric Bills: No Difficulty Paying for Meds: No Currently Unemployed: No Education: Master's Degree or Higher Living arrangements: with family Occupation/Education: retired Gender identity (if verbalized by the patient): Male Sexual Orientation (if Verbalized by the Patient): Straight or Heterosexual Spiritual care concerns: No Exam Narrative: GENERAL: [Well-appearing, well-nourished, and in no acute distress.] HEAD: [Normocephalic, atraumatic.] EYES: [PERRLA and EOMI.] ENT: Nares clear, no rhinorrhea or epistaxis. Mucous membranes moist. NECK: Supple. CHEST: [Clear to auscultation. No respiratory distress.] HEART: [Regular rate and rhythm]. No murmur heard. [Normal peripheral pulses.] ABDOMEN: [Soft, nondistended], [nontender], [No rigidity or guarding] right lower quadrant urostomy without any active bleeding or oozing. There is some irritation around the stoma site without any active signs of infection or purulence. Nontender to palpation, no skin irritation around the urostomy. Urostomy bag filled with clear fluid. EXTREMITIES: N
== END 2023-09-22 15:53 | disposition home or self-care (01) ==
PROVIDERS: Emergency Provider Student in an Organized Health Care Education/Training Program; PCP Internal Medicine
DX: T83.518A Infection and inflammatory reaction due to other urinary catheter, initial encounter (principal); Z85.46 Personal history of malignant neoplasm of prostate; Z85.51 Personal history of malignant neoplasm of bladder; Z79.82 Long term (current) use of aspirin; Z79.01 Long term (current) use of anticoagulants; E78.5 Hyperlipidemia, unspecified; I10 Essential (primary) hypertension; Z95.0 Presence of cardiac pacemaker
CPT/HCPCS: 99281

== ENCOUNTER 2023-12-15 13:46 | Inpatient (IN) | payer MEDICARE, SELFPAY ==
[2023-12-15] VITALS (7 sets, daily range): BP systolic 117–143; BP diastolic 68–95; PULSE 69–72; RESP 16–20; TEMP 36.3–37; O2SAT 95–98
--- NOTE | ~2023-12-15 | XR_ITS ---
Portable chest x-ray Comparison: 12/15/2023 Clinical History: Shortness of breath Findings: Small bilateral pleural effusions are present. Cardiomediastinal silhouette is stable, wi th pacemaker device. Bones and soft tissues are unremarkable. Impression: Small bilateral pleural effusions. Reviewed, dictated and finalized at location . Impression: Small bilateral pleural effusions.
--- NOTE | ~2023-12-15 | US_ITS ---
BILATERAL LOWER EXTREMITY VENOUS ULTRASOUND Ordering provider: Drea Hoover APRN History: . swelling . Comparison: None. FINDINGS: RIGHT LOWER EXTREMITY VEINS: --COMMON FEMORAL: Patent and free of thrombus. Normal compressibility, phasic flow and augmentation. --PROXIMAL SUPERFICIAL FEMORAL: Patent and free of thrombus. Normal compressibility, phasic flow and augmentation. --DISTAL SUPERFICIAL FEMORAL: Patent and free of thrombus. Normal compressibility, phasic flow and au gmentation. --POPLITEAL: Patent and free of thrombus. Normal compressibility, phasic flow and augmentation. --POSTERIOR TIBIAL: Patent and free of thrombus. Normal compressibility, phasic flow and augmentation . LEFT LOWER EXTREMITY VEINS: --COMMON FEMORAL: Patent and free of thrombus. Normal compressibility, phasic flow and augmentation. --PROXIMAL SUPERFICIAL FEMORAL: Patent and free of thrombus. Normal compressibility, phasic flow and augmentation. --DISTAL SUPERFICIAL FEMORAL: Patent and free of thrombus. Normal compressibility, phasic flow and au gmentation. --POPLITEAL: Patent and free of thrombus. Normal compressibility, phasic flow and augmentation. --POSTERIOR TIBIAL: Patent and free of thrombus. Normal compressibility, phasic flow and augmentation . IMPRESSION: Negative bilateral lower extremity venous US. No deep vein thrombosis. Reviewed, dictated and finalized at location A.
--- NOTE | ~2023-12-15 | XR_ITS ---
XR chest 1V portable Ordering provider: Serge Pa MD History: 88 years Male with . leg swelling . Comparison: November 18, 2019 FINDINGS: MEDIASTINUM: The cardiac silhouette is slightly enlarged. Left bipolar pacemaker. Congestive margret. LUNGS: No pneumothorax. Bilateral pleural effusion with adjacent atelectasis in the lung bases. Bilateral interstitial thickening. OTHER: No free air under the diaphragm. IMPRESSION: Cardiomegaly with cardiac decompensation and pulmonary edema. Pneumonitis is not excluded. Bilateral minimal pleural effusion with adjacent atelectasis. Reviewed, dictated and finalized at location A. IMPRESSION: Cardiomegaly with cardiac decompensation and pulmonary edema. Pneumonitis is no t excluded. Bilateral minimal pleural effusion with adjacent atelectasis.
--- NOTE | ~2023-12-15 | CT_ITS ---
CT abdomen pelvis wo con Ordering provider: Serge Pa MD History: 88 years Male with . Lower extremity edema, abdominal ascites . Comparison: June 17, 2020 Technique: CT abdomen and pelvis without IV and without oral contrast. Automated exposure control and iterative reconstruction technique were employed. The dose-length product was 969.58 mGy-cm. Findings: VISUALIZED LOWER CHEST: Bilateral pleural effusion with adjacent atelectasis. Slight cardiomegaly wit h trace of pericardial effusion. UPPER ABDOMINAL ORGANS: Liver: Normal. Gallbladder: Thickened wall. No stones. Spleen: Normal. Benign calcifications. Stomach/duodenum: Sliding hiatus hernia. Pancreas: Normal. Adrenals: Normal. Kidneys: Minimal fullness of the left renal pelvis with dilated left ureter. Small Left renal cyst. R ight ileal conduit. Status post cystectomy. BOWEL AND MESENTERY: Colon: Mild sigmoid diverticulosis without diverticulitis. Fecal material seen in the colon. No evide nce of appendicitis. Small Bowel: Slightly dilated bowel loops in the pelvis area. Early obstruction cannot be excluded. F ollow-up advised. Peritoneum/mesentery: No free air. Significant Free fluid in the pelvis. No mesenteric lymphadenopath y. RETROPERITONEUM: Mild atheromatous disease of the abdominal aorta. No retroperitoneal lymphadenopat hy. MUSCULOSKELETAL: Superficial soft tissues: Edema in the subcutaneous tissues which may indicate fluid overload. Fluid in the right inguinal canal. The superficial soft tissues are normal. Bones: Age appropriate degenerative changes of the spine. Bilateral sacroiliitis. IMPRESSION: 1. Bilateral pleural effusion with adjacent atelectasis. 2. Minimal pericardial effusion. Minimal cardiomegaly. 3. Ascites. 4. Thickened wall of the gallbladder. Acalculous cholecystitis cannot be excluded. 5. Medial condyle with slight fullness of the left renal pelvis and ureter. 6. Slightly dilated small bowel loops in the pelvis. Early obstruction cannot be excluded. Follow-up advised. 7. Right inguinal hernia with fluid content. Reviewed, dictated and finalized at location A. IMPRESSION: 1. Bilateral pleural effusion with adjacent atelectasis. 2. Minimal pericardial effusion. Minimal cardiomegaly. 3. Ascites. 4. Thickened wall of the gallbladder. Acalculous cholecystitis cannot be exclu ded. 5. Medial condyle with slight fullness of the left renal pelvis and ureter. 6. Slightly dilated small bowel loops in the pelvis. Early obstruction cannot be excluded. Follow-up advised. 7. Right inguinal hernia with fluid content.
--- NOTE | 2023-12-15 14:42 | ED.GENADULT ---
HPI - General Adult General Chief complaint: Extremity Problem,Nontraumatic Stated complaint: BLE edema Time Seen by Provider: 12/15/23 13:48 History of Present Illness HPI narrative: 88-year-old male presenting to the emergency department for evaluation for increased lower extremity edema, abdominal edema and exertional shortness of breath. Patient has had longstanding issues was lower extremity edema and has been following up with Nephrology and his primary care physician in order to become further diuresed. Patient recently had his Lasix increased from 60-80 but states he still have a lower extremity swelling. Patient states today he was walking back from the bathroom and had increased shortness of breath. Related Data Home Medications Medication Instructions Recorded Confirmed aspirin 81 mg tablet,delayed 81 mg PO DAILY 10/29/19 12/15/23 release (Aspir-) multivitamin (Multiple Vitamins 1 tablet PO DAILY 10/29/19 12/15/23 tablet) potassium chloride 20 mEq 20 meq PO QAM 10/29/19 09/26/23 tablet,extended release(part/cryst) pravastatin 80 mg tablet 80 mg PO HS 10/29/19 09/26/23 apixaban 2.5 mg tablet (Eliquis) 2.5 mg PO BID 07/04/21 12/15/23 isosorbide mononitrate 30 mg 30 mg PO DAILY 07/04/21 09/26/23 tablet,extended release 24 hr losartan 100 mg tablet 100 mg PO DAILY 07/04/21 09/26/23 amlodipine 5 mg tablet 5 mg PO DAILY 06/06/22 09/26/23 hydralazine 10 mg tablet 10 mg PO TID 06/06/22 09/26/23 furosemide 40 mg tablet 80 mg PO QAM 03/22/23 12/15/23 Allergies Allergy/AdvReac Type Severity Reaction Status Date / Time No Known Allergies Allergy Unknown Verified 09/24/23 08:24 Review of Systems Review of Systems: All systems reviewed & are unremarkable except as noted in HPI and below PMFSH Past Medical History Medical History Bladder cancer Heart disease Hyperlipidemia Hypertension Pacemaker Prostate cancer Surgical History Surgical History H/O cystoscopy bladder tumor excision Family History Family History Sibling Cancer Heart disease Social History Social History Smoking status: Never smoker Tobacco type: cigars Second hand tobacco smoke exposure: No Smoking end date: 02/26/79 Additional smoking assessment comments: SMOKED ~ 1 CIGAR /WEEK FOR ~ 10 YEARS Alcohol intake: current Alcohol use details: VERY RARELY Substance use: never Do You Feel Safe in your Home?: Yes Lack of Transportation: No Lack of Food: Never True Current Housing: I Have Housing Concerned About Future Housing: No Difficulty Paying Gas/Electric Bills: No Difficulty Paying for Meds: No Currently Unemployed: No Education: Master's Degree or Higher Difficulty w/ Childcare or Family Care: No Living arrangements: with family Occupation/Education: retired Gender identity (if verbalized by the patient): Male Sexual Orientation (if Verbalized by the Patient): Straight or Heterosexual Spiritual care concerns: No Exam Narrative: APPEARANCE: Well appearing, no pain, no distress, well-nourished. HEAD: normocephalic, atraumatic. EYES: PERRLA/EOMI, conjunctivae clear. NOSE: Normal no drainage EARS:TMS clear with good light reflex. THROAT: Pharynx clear, no exudate. NECK: Supple. No adenopathy, no masses. RESPIRATORY: Airway patent, respirations nonlabored. Clear to auscultation bilaterally, no rales, rhonchi, wheezing. CARDIOVASCULAR: Regular rate and rhythm without murmurs rubs or gallops. ABDOMINAL: Soft, nontender, nondistended, normal bowel sounds, well-appearing urostomy MUSCULOSKELETAL: Lower extremity edema NEURO: Alert. Cranial nerves II through XII intact. Grossly intact SKIN: Warm, dry. Normal Color Course Vital Signs Vital signs: Vital Signs Temperature 97.4 F L 12/15/23 13:47 Pulse Rate 69 12/15/23 13:47 Respiratory Rate 20 12/15/23 13:47 Blood Pressure 143/95 H 12/15/23 13:47 Pulse Oximetry 97 12/15/23 13:47 Oxygen Delivery Room Air 12/15/23 13:47 Temperature 97.7 F 12/15/23 18:24 Pulse Rate 72 12/15/23 18:24 Respiratory Rate 18 12/15/23 18:24 Blood Pressure 137/68 12/15/23 18:24 Pulse Oximetry 98 12/15/23 18:24 Oxygen Delivery Room Air 12/15/23 13:47 Medical Decision Making MDM Narrative Medical decision making narrative: 88-year-old male presenting to the emergency department for evaluation for lower extremity swelling and associated shortness of breath. Patient is afebrile with no leukocytosis and a hemoglobin of 11.6. Patient's creatinine is similar to his baseline. Patient is hyponatremic with a sodium of 123. Patient does have a significant elevated BNP greater than 23,000. UA was positive for nitrates and high blood cells and +4 bacteria. Patient was treated with IV Lasix for suspected anasarca fluid overload. Case was discussed with hospitalist patient was accepted for admission. Differential Diagnosis Differential Diagnosis: CHF, anasarca, UTI, shortness of breath, pneumonia Vital Signs Vital Signs: Vital Signs Temperature 97.4 F L 12/15/23 13:47 Pulse Rate 69 12/15/23 13:47 Respiratory Rate 20 12/15/23 13:47 Blood Pressure 143/95 H 12/15/23 13:47 Pulse Oximetry 97 12/15/23 13:47 Oxygen Delivery Room Air 12/15/23 13:47 Temperature 97.7 F 12/15/23 18:24 Pulse Rate 72 12/15/23 18:24 Respiratory Rate 18 12/15/23 18:24 Blood Pressure 137/68 12/15/23 18:24 Pulse Oximetry 98 12/15/23 18:24 Oxygen Delivery Room Air 12/15/23 13:47 Lab Data Lab results reviewed: Yes I reviewed the patient's lab results. 12/15/23 14:47 12/15/23 14:47 Labs: Lab Results 12/15/23 12/15/23 Range/Units 14:47 15:02 WBC 7.7 (4.5-10.0) K/mm3 RBC 3.50 L (4.6-6.20) M/mm3 Hgb 11.6 L (14.0-18.0) g/dL Hct 33.1 L (42.0-52.0) % MCV 94.6 (80-100) fl MCH 33.1 (26-34) pg MCHC 35.0 (32-36) g/dl RDW 12.5 (11.5-14.5) % Plt Count 206 (150-375) k/mm3 MPV 10.1 (7.4-10.4) fl Immature Gran % (Auto) 0.4 (0-0.5) % Neut % (Auto) 82.8 H (45.5-73.1) % Lymph % (Auto) 8.2 L (18.3-44.2) % [place] % (Auto) 7.3 (2.6-8.5) % Eos % (Auto) 0.8 (0-4.4) % Baso % (Auto) 0.5 (0.2-1.2) % Lymph # (Auto) 0.63 L (0.9-3.2) K/mm3 [place] # (Auto) 0.6 (0.1-0.6) K/mm3 Eos # (Auto) 0.1 (0-0.3) K/mm3 Baso # (Auto) 0.0 (0.0-0.1) K/mm3 Abs Immat Gran (auto) 0.03 (0.00-0.031) K/mm3 Absolute Neuts (auto) 6.4 (1.3-6.7) K/mm3 Absolute Nucleated RBC 0.000 (0.0-0.012) K/mm3 Nucleated RBC % 0.0 (0.0-0.2) % PT 19.2 H (11.1-14.7) Seconds INR 1.6 APTT 43.7 H (22.3-36.8) Seconds Sodium 123 L (137-145) mmol/L Potassium 4.7 (3.4-5.0) mmol/L Chloride 93 L (98-107) mmol/L Carbon Dioxide 18 L (22-30) mmol/L Anion Gap 12 (4-12) mmol/L BUN 33 H (9-20) mg/dL Creatinine 2.10 H (0.7-1.3) mg/dL Estim Creat Clear Calc 27 ml/min Estimated GFR 30 L (59 - ) Glucose 118 H (65-110) mg/dL Calcium 9.0 (8.4-10.2) mg/dL Total Bilirubin 1.1 (0.2-1.3) mg/dL AST 34 (17-59) U/L ALT 26 (6-50) U/L Alkaline Phosphatase 41 (38-126) U/L NT-Pro-B Natriuret Pep 65888 H (19.9-100) pg/mL Total Protein 7.0 (6.3-8.2) g/dL Albumin 4.2 (3.5-5.1) g/dL Urine Color Yellow (Yellow) Urine Appearance Cloudy H (Clear) Urine pH 7.5 (5.0-9.0) Ur Specific [place] 1.008 (1.001-1.035) Urine Protein 1+ H (Negative) mg/dL Urine Glucose (UA) Negative (Negative) mg/dL Urine Ketones Negative (Negative) mg/dL Ur Blood (Man) 2+ H (Negative) Urine Nitrate Positive H (Negative) Urine Bilirubin Negative (Negative) Urine Urobilinogen 0.2 (<2.0) mg/dL Add Ur Microanalysis Reviewed Leukocyte Esterase Rfl 3+ H (Negative) CASSIDY/UL Urine RBC 6-10 H (0-2) /hpf Urine WBC 21-50 H (0-3) /hpf Ur Squamous Epith Cells None seen (Few) /hpf Urine Bacteria 4+ H /hpf Urine Casts 3-5 Imaging Data Radiologist's impression: Impressions Chest X-Ray 12/15/23 14:33 IMPRESSION: Cardiomegaly with cardiac decompensation and pulmonary edema. Pneumonitis is not excluded. Bilateral minimal pleural effusion with adjacent atelectasis. Abdomen/Pelvis CT 12/15/23 16:22 IMPRESSION: 1. Bilateral pleural effusion with adjacent atelectasis. 2. Minimal pericardial effusion. Minimal cardiomegaly. 3. Ascites. 4. Thickened wall of the gallbladder. Acalculous cholecystitis cannot be excluded. 5. Medial condyle with slight fullness of the left renal pelvis and ureter. 6. Slightly dilated small bowel loops in the pelvis. Early obstruction cannot be excluded. Follow-up advised. 7. Right inguinal hernia with fluid content. Discharge Plan Discharge Clinical Impression: Anasarca, Acute UTI Patient Disposition: Still a Patient Condition: Serious
[2023-12-15 14:53] LABS: Basophils Percent Auto 0.5 % (0.2-1.2); Eosinophils Absolute Auto 0.1 K/mm3 (0-0.3); Eosinophils Percent Auto 0.8 % (0-4.4); Hematocrit 33.1 % (42.0-52.0); Hemoglobin 11.6 g/dL (14.0-18.0); Immature Granulocyte Absolute 0.03 K/mm3 (0.00-0.031); Immature Granulocyte Percent A 0.4 % (0-0.5); Lymphocytes Absolute Auto 0.63 K/mm3 (0.9-3.2); Lymphocytes Percent Auto 8.2 % (18.3-44.2); Mean Corpuscular Hemoglobin 33.1 pg (26-34); Mean Corpuscular Volume 94.6 fl (80-100); Mean Platelet Volume 10.1 fl (7.4-10.4); Monocytes Absolute Auto 0.6 K/mm3 (0.1-0.6); Monocytes Percent Auto 7.3 % (2.6-8.5); Neutrophils Absolute Auto 6.4 K/mm3 (1.3-6.7); Neutrophils Percent Auto 82.8 % (45.5-73.1); Platelet Count Result 206 k/mm3 (150-375); Red Cell Distribution Width 12.5 % (11.5-14.5); White Blood Count 7.7 K/mm3 (4.5-10.0)
[2023-12-15 15:10] LABS: INR 1.6; Prothrombin Time 19.2 Seconds (11.1-14.7)
[2023-12-15 15:11] LABS: Partial Thromboplastin Time 43.7 Seconds (22.3-36.8)
[2023-12-15 15:21] LABS: Add Urine Microscopic? YES; Appearance Urine Cloudy (Clear); Bacteria Urine 4+ /hpf; Bilirubin Urine Negative (Negative); Blood Urine 2+ (Negative); Color Urine Yellow (Yellow); Glucose Urine UA Negative (Negative); Ketones Urine Negative (Negative); Leukocyte Esterase Ur 3+ LEU/UL (Negative); Need Manual Microscopic Reviewed; Nitrate Urine Positive (Negative); Protein Urine 1+ mg/dL (Negative); Specific Grav Ur 1.008 (1.001-1.035); Squamous Epithelial Cell Urine None Seen /hpf (Few); Urobilinogen Urine 0.2 mg/dL (<2.0); WBC Urine 21-50 /hpf (0-3); pH Urine 7.5 (5.0-9.0)
[2023-12-15 15:30] LABS: Alanine Aminotransferase 26 U/L (6-50); Albumin Level 4.2 g/dL (3.5-5.1); Alkaline Phosphatase 41 U/L (38-126); Anion Gap 12 mmol/L (4-12); Aspartate Amino Transferase 34 U/L (17-59); Bilirubin,Total 1.1 mg/dL (0.2-1.3); Blood Urea Nitrogen 33 mg/dL (9-20); Carbon Dioxide 18 mmol/L (22-30); Chloride 93 mmol/L (98-107); Estimated CRCL calculation 27 ml/min; Estimated Glomerular Filt Rate 30; Glucose 118 mg/dL (65-110); Potassium 4.7 mmol/L (3.4-5.0); Sodium 123 mmol/L (137-145)
[2023-12-15 15:44] LABS: NT Pro B Type Natriuretic Pept 22300 pg/mL (19.9-100)
--- NOTE | 2023-12-15 16:56 | P.HP_ITS ---
H&P: HPI History of Present Illness Date/Time: 12/15/23 16:56 Chief Complaint: Bilateral leg swelling Narrative: 88-year-old male with a PMHx: of AFib on anticoagulation, hyperlipidemia, HTN, prostate cancer, bladder cancer s/p: prostate removal and urostomy formation. Seen in the emergency room today with complaints of ongoing bilateral extremity swelling. Patient reports that recently he had his Lasix increased to aid with chronic lower extremity swelling. Patient tells me that this morning when he was trying to ambulate back from the bathroom he noticed an increase in his chronic SOB, he denied any chest pain, nausea vomiting, dizziness or headache or fall at that time. Initial ED workup revealed: Patient arrived he was afebrile with no leukocytosis his hgb was 11.6, creatinine is baseline patient was hyponatremic with a sodium of 123, elevated BNP > 22,000 his urine was positive for nitrates and white blood cells and bacteria, patient was given Lasix in the ED suspected anasarca fluid overload, abdominal CT reveals bilateral pleural effusion with adjacent atelectasis, minimal pericardial effusion minimal cardiomegaly, ascites, thickened wall the gallbladder acalculous cholecystitis cannot be excluded, medial condyle with slight fullness of the left renal pelvis and ureter, slightly dilated small bowel loops in the pelvis, early obstruction cannot be excluded follow-up as advised, right inguinal hernia with fluid content. Review of Systems Review of Systems: All systems reviewed & are unremarkable except as noted in HPI and below PMFSH Past Medical History Medical History Bladder cancer Heart disease Hyperlipidemia Hypertension Pacemaker Prostate cancer Surgical History Surgical History H/O cystoscopy bladder tumor excision Family History Family History Sibling Cancer Heart disease Social History Social History Smoking status: Never smoker Tobacco type: cigars Second hand tobacco smoke exposure: No Smoking end date: 02/26/79 Additional smoking assessment comments: SMOKED ~ 1 CIGAR /WEEK FOR ~ 10 YEARS Alcohol intake: current Alcohol use details: VERY RARELY Substance use: never Do You Feel Safe in your Home?: Yes Lack of Transportation: No Lack of Food: Never True Current Housing: I Have Housing Concerned About Future Housing: No Difficulty Paying Gas/Electric Bills: No Difficulty Paying for Meds: No Currently Unemployed: No Education: Master's Degree or Higher Difficulty w/ Childcare or Family Care: No Living arrangements: with family Occupation/Education: retired Gender identity (if verbalized by the patient): Male Sexual Orientation (if Verbalized by the Patient): Straight or Heterosexual Spiritual care concerns: No Meds Home Medications and Allergies Home Medications Medication Instructions Recorded Confirmed Type aspirin 81 mg tablet,delayed 81 mg PO DAILY 10/29/19 12/15/23 History release (Aspir-) multivitamin (Multiple Vitamins 1 tablet PO DAILY 10/29/19 12/15/23 History tablet) potassium chloride 20 mEq 20 meq PO QAM 10/29/19 09/26/23 History tablet,extended release(part/cryst) pravastatin 80 mg tablet 80 mg PO HS 10/29/19 09/26/23 History apixaban 2.5 mg tablet (Eliquis) 2.5 mg PO BID 07/04/21 12/15/23 History isosorbide mononitrate 30 mg 30 mg PO DAILY 07/04/21 09/26/23 History tablet,extended release 24 hr losartan 100 mg tablet 100 mg PO DAILY 07/04/21 09/26/23 History amlodipine 5 mg tablet 5 mg PO DAILY 06/06/22 09/26/23 History hydralazine 10 mg tablet 10 mg PO TID 06/06/22 09/26/23 History furosemide 40 mg tablet 80 mg PO QAM 03/22/23 12/15/23 History sodium bicarbonate 650 mg tablet 650 mg PO BID #60 tabs 09/24/23 09/24/23 Rx Allergies Allergy/AdvReac Type Severity Reaction Status Date / Time No Known Allergies Allergy Unknown Verified 09/24/23 08:24 Vital Signs Vital Signs - 24 hr 12/15/23 13:47 Temperature 97.4 F L Pulse Rate 69 Respiratory Rate 20 Blood Pressure 143/95 H Pulse Oximetry 97 Oxygen Delivery Room Air Exam Narrative: APPEARANCE: Chronically ill-appearing, mild distress, reporting abdominal distension and bloating HEAD: normocephalic, atraumatic. EYES: PERRLA/EOMI, conjunctivae clear. NOSE: Normal no drainage EARS:TMS clear with good light reflex. THROAT: Pharynx clear, no exudate. NECK: Supple. No adenopathy, no masses. RESPIRATORY: Airway patent, respirations nonlabored. Clear to auscultation bilaterally, no rales, rhonchi, wheezing. CARDIOVASCULAR: Regular rate and rhythm without murmurs rubs or gallops. ABDOMINAL: tender to palpation, distended, bowel sounds diminished, patent appearing urostomy MUSCULOSKELETAL: +3 pitting edema Lower extremity edema NEURO: Alert. Cranial nerves II through XII intact. Grossly intact SKIN: Warm, dry. Normal Color H&P: Results Labs Labs: Short CBC 12/15/23 Range/Units 14:47 WBC 7.7 (4.5-10.0) K/mm3 Hgb 11.6 L (14.0-18.0) g/dL Hct 33.1 L (42.0-52.0) % Plt Count 206 (150-375) k/mm3 BMP 12/15/23 14:47 Sodium 123 L Potassium 4.7 Chloride 93 L Carbon Dioxide 18 L BUN 33 H Creatinine 2.10 H Glucose 118 H Calcium 9.0 Liver Function 12/15/23 Range/Units 14:47 Total Bilirubin 1.1 (0.2-1.3) mg/dL AST 34 (17-59) U/L ALT 26 (6-50) U/L Alkaline Phosphatase 41 (38-126) U/L Albumin 4.2 (3.5-5.1) g/dL Urine 12/15/23 Range/Units 15:02 Urine Color Yellow (Yellow) Urine Appearance Cloudy H (Clear) Urine pH 7.5 (5.0-9.0) Ur Specific [place] 1.008 (1.001-1.035) Urine Protein 1+ H (Negative) mg/dL Urine Glucose (UA) Negative (Negative) mg/dL Pulse Oximetry Attestation: I personally reviewed and interpreted this pulse oximetry as follows: Imaging CT scan - abdomen: Radiologist's impression: 1. Bilateral pleural effusion with adjacent atelectasis. 2. Minimal pericardial effusion. Minimal cardiomegaly. 3. Ascites. 4. Thickened wall of the gallbladder. Acalculous cholecystitis cannot be excluded. 5. Medial condyle with slight fullness of the left renal pelvis and ureter. 6. Slightly dilated small bowel loops in the pelvis. Early obstruction cannot be excluded. Follow-up advised. 7. Right inguinal hernia with fluid content. Chest x-ray: Radiologist's impression: Cardiomegaly with cardiac decompensation and pulmonary edema. Pneumonitis is not excluded. Bilateral minimal pleural effusion with adjacent atelectasis. Assessment and Plan Assessment and plan (1) Chronic kidney disease, stage 4 (severe): Code(s): N18.4 - Chronic kidney disease, stage 4 (severe) Status: Acute Assessment and Plan: -history of bilateral hydronephrosis -creatinine baseline 2.10 (2) Anasarca: Code(s): R60.1 - Generalized edema Status: Acute Assessment and Plan: -bilateral +3 pitting edema lower extremities S/p: 80 mg Lasix given in the ED, patient tolerated well BP was initially elevated -give 1 more dose 80 mg Lasix in the a.m. (3) Hypo-osmolality and hyponatremia: Code(s): E87.1 - Hypo-osmolality and hyponatremia Status: Acute Assessment and Plan: Sodium 123, chronic, patient is hypervolemic, a/0 x3, continue to monitor I&O, continue diuretics -check TSH -check lipid panel -check urine sodium/urine osmolality -repeat BMP q.4 hours -consult Nephrology in the a.m. appreciate recommendation and plan (4) Presence of urostomy: Code(s): Z93.6 - Other artificial openings of urinary tract status Status: Acute Assessment and Plan: -perform urostomy care -add urinary bag drainage system (5) UTI (urinary tract infection): Code(s): N39.0 - Urinary tract infection, site not specified Status: Acute Assessment and Plan: Urostomy present, UA revealed, positive nitrate, positive leukocyte esterase, positive urine WBC, positive urine bacteria -s/p: ceftriaxone given in the ED -continue ceftriaxone 1 g Q 24 hours -UA culture pending (6) Cholecystitis: Code(s): K81.9 - Cholecystitis, unspecified Status: Acute Assessment and Plan: As evidence by CT which shows thickened wall of gallbladder, acalculous cholecystitis -consult general surgery appreciate recommendation and plan (7) Hernia: Code(s): K46.9 - Unspecified abdominal hernia without obstruction or gangrene Status: Acute Assessment and Plan: -slightly dilated small bowel loops in the pelvis, early obstruction cannot be excluded -Right inguinal hernia with fluid content. -consult GI and gen surgery in that am appreciate recommendation and plan Plan Continue home medications: As ordered VTE Prophylaxis: Eliquis DIET: Heart healthy Anticipated hospital stay: > 2 days Code Status: Full Hospitalist MIPS Advance Care Plan I have confirmed that the patient's Advanced Care Plan is present, code status is documented, or surrogate decision maker is listed in patient medical record.: Yes Medication Reconciliation I have utilized all available resources to obtain, update and review the patients current medications (includes all prescriptions, OTC, herbals, cannabis, and nutritional supplements).: Yes
[2023-12-15] MEDS: FUROSEMIDE INJ 100 MG/10 ML VIAL 80 MG IV PUSH (17:09)
--- NOTE | 2023-12-15 18:44 | ADMGEN ---
This patient, Khoa Hammonds, was admitted to Medical Room 248-01. Patient/family oriented to hospital policies and general routines including ID bracelet, bed and alarms, visiting hours, pain management, procedures, bathroom and other care routines, personal items, smoking policy, room service/diet, and visiting hours. Information on how to activate the Rapid Response Team has been discussed. Patient/Family are encouraged to report perceived risks to care and to ask questions if they do not understand what they are told or what they should do. Medication list not complete as patient was unsure of dosage, frequency, and names of several medications.
[2023-12-15] MEDS: APIXABAN 2.5 MG TABLET PO (23:27)
[2023-12-15 23:59] LABS: Anion Gap 10 mmol/L (4-12); Blood Urea Nitrogen 34 mg/dL (9-20); Calcium 8.7 mg/dL (8.4-10.2); Carbon Dioxide 21 mmol/L (22-30); Chloride 94 mmol/L (98-107); Estimated CRCL calculation 27 ml/min; Estimated Glomerular Filt Rate 30; Glucose 116 mg/dL (65-110); Potassium 4.1 mmol/L (3.4-5.0); Sodium 125 mmol/L (137-145)
[2023-12-16] VITALS (9 sets, daily range): BP systolic 112–122; BP diastolic 59–71; PULSE 64–78; RESP 16–18; TEMP 36.4–36.8; O2SAT 96–99
[2023-12-16 05:36] LABS: Basophils Percent Auto 0.8 % (0.2-1.2); Eosinophils Absolute Auto 0.1 K/mm3 (0-0.3); Eosinophils Percent Auto 1.2 % (0-4.4); Hematocrit 29.9 % (42.0-52.0); Hemoglobin 10.1 g/dL (14.0-18.0); Immature Granulocyte Absolute 0.03 K/mm3 (0.00-0.031); Immature Granulocyte Percent A 0.6 % (0-0.5); Lymphocytes Percent Auto 11.8 % (18.3-44.2); Mean Corpuscular HGB Conc 33.8 g/dl (32-36); Mean Corpuscular Hemoglobin 32.2 pg (26-34); Mean Corpuscular Volume 95.2 fl (80-100); Mean Platelet Volume 9.9 fl (7.4-10.4); Monocytes Absolute Auto 0.4 K/mm3 (0.1-0.6); Monocytes Percent Auto 8.7 % (2.6-8.5); Neutrophils Absolute Auto 3.9 K/mm3 (1.3-6.7); Neutrophils Percent Auto 76.9 % (45.5-73.1); Platelet Count Result 166 k/mm3 (150-375); Red Blood Count 3.14 M/mm3 (4.6-6.20); Red Cell Distribution Width 12.4 % (11.5-14.5); White Blood Count 5.1 K/mm3 (4.5-10.0)
[2023-12-16 05:48] LABS: Alanine Aminotransferase 25 U/L (6-50); Albumin Level 3.5 g/dL (3.5-5.1); Alkaline Phosphatase 32 U/L (38-126); Anion Gap 9 mmol/L (4-12); Aspartate Amino Transferase 32 U/L (17-59); Bilirubin,Total 0.7 mg/dL (0.2-1.3); Blood Urea Nitrogen 33 mg/dL (9-20); Calcium 8.5 mg/dL (8.4-10.2); Carbon Dioxide 20 mmol/L (22-30); Chloride 96 mmol/L (98-107); Cholesterol 102 mg/dL (0-200); Estimated CRCL calculation 27 ml/min; Estimated Glomerular Filt Rate 30; Glucose 96 mg/dL (65-110); HDL Direct 46 mg/dL; Sodium 125 mmol/L (137-145); Triglycerides 52 mg/dL (<150)
[2023-12-16 05:59] LABS: LDL Cholesterol Direct 33 mg/dL
[2023-12-16 06:01] LABS: NT Pro B Type Natriuretic Pept 21900 pg/mL (19.9-100)
--- NOTE | 2023-12-16 07:45 | P.PNIM_ITS ---
Progress Note: A&P Assessment and Plan (1) CHF exacerbation: Code(s): I50.9 - Heart failure, unspecified Status: Acute Assessment and Plan: Patient presented with complaints of shortness of breath and increased lower extremity edema and abdominal distention. BNP 22,000 on admission. Chest x-ray shows cardiomegaly with cardiac decompensation and pulmonary edema and bilateral pleural effusion with ascites. He received IV Lasix 80 mg in the ED. Currently not requiring oxygen. * Received IV Lasix 80 mg today. Cardiology recommends diuresis with Bumex 1 mg BID. Nephrology added metolazone 2.5 mg PO once. * BNP elevated. No ECHO on file, ECHO ordered for today. Review of nephrology clinic notes state LVH EF 44% and aortic sclerosis from ECHO in 2020. * strict I&O, daily weights * Low sodium diet, fluid restriction of 1200 ml * Repeat x-ray in the AM to assess pleural effusions * Will get venous duplex to rule out DVT as he has increased lower extremity edema and right leg is more swollen than the left * Continue Eliquis 2.5 mg PO BID (2) UTI (urinary tract infection): Code(s): N39.0 - Urinary tract infection, site not specified Status: Acute Assessment and Plan: UA concerning of infection. cloudy colored urine with positive nitrates, 3+ leukocytes, pyuria, and 4+ bacteria. Normal WBC with elevated neutrophils. Patient has urostomy. * Urine culture pending * He was started on Rocephin (3) Chronic kidney disease, stage 4 (severe): Code(s): N18.4 - Chronic kidney disease, stage 4 (severe) Status: Acute Assessment and Plan: Creatinine seems to be at baseline 2.10 with GFR 30. Potassium 4.0, phosphorus pending * Diuresis with assistance of nephrology, cardiology. Rec's appreciated * Currently receiving Bumex 1 mg IVP BID and metolazone 2.5 mg PO one time * Urostomy to [place] bag, strict I&O (4) Diarrhea: Code(s): R19.7 - Diarrhea, unspecified Status: Acute Assessment and Plan: Patient reports watery stool of the last few days. Today stool is semi formed and he is passing flatus. CT abdomen and pelvis showed mildly dilated loops of small bowel. He denies abdominal pain, nausea, vomiting. His abdomen is distended with tinkling bowel sounds. 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 Sodium on admission was 123. Sodium 135 from 09/10/23. He feels weak. * Improving with diuresis * Fluid restriction 1.2 L * Nephrology is following Subjective Date/time seen: 12/16/23 07:45 Interval history: Pleasant gentleman here with complaints of lower extremity swelling and abdominal swelling. In addition to this he reports he has been having some shortness of breath with exertion. He denies fever, chills, chest pain, nausea, vomiting, abdominal pain, or constipation. He has been having some watery stools and increased flatus. Today he had a most semi-formed bowel movement. Review of Systems Review of Systems: All systems reviewed & are unremarkable except as noted in HPI and below Exam Narrative: General: appears comfortable, in no acute distress Respiratory: breathing is unlabored with even chest rise/fall, lungs are diminished with faint crackles to bilateral bases. Cardiovascular: Rate and rhythm regular, normal s1s2, no murmur Abdomen: distended, soft, tinkling bowel sounds, non-tender, active bowel sounds. Urostomy present with clear yellow urine. Extremities: No cyanosis. Bilateral lower extremity edema with right greater than left, +2 pitting to bilateral lower legs. Neuro: A&O x 4, pleasant, good insight and judgement Skin: Warm, dry, intact Objective Data Vital Signs Vital Signs: Vital Signs - 24 hr 12/15/23 13:47 12/15/23 16:58 12/15/23 17:23 Temperature 97.4 F L Pulse Rate 69 69 72 Respiratory Rate 20 16 18 Blood Pressure 143/95 H 131/71 134/76 Pulse Oximetry 97 98 97 Oxygen Delivery Room Air 12/15/23 18:24 12/15/23 20:57 12/15/23 23:34 Temperature 97.7 F 97.7 F 98.6 F Pulse Rate 72 69 69 Respiratory Rate 18 17 18 Blood Pressure 137/68 121/69 117/68 Pulse Oximetry 98 95 96 Oxygen Delivery 12/15/23 20:40 12/16/23 03:32 12/16/23 04:00 Temperature 97.8 F Pulse Rate 70 69 Respiratory Rate 17 Blood Pressure 112/59 L Pulse Oximetry 96 96 Oxygen Delivery Room Air Intake/Output Intake/Output: Intake & Output 12/13/23 12/14/23 12/15/23 12/16/23 23:59 23:59 23:59 23:59 Intake Total 50 Output Total 700 800 Balance -650 -800 Meds/Results Medications: Active Medications Generic Name Dose Route Start Last Admin Trade Name Freq PRN Reason Stop Dose Admin Apixaban 2.5 mg 12/15/23 21:00 12/15/23 23:27 Apixaban 2.5 Mg Tablet PO 2.5 mg Q12HR AMOR Administration Furosemide 80 mg 12/16/23 08:34 Furosemide Inj 100 Mg/10 Ml Vial IV PUSH 12/16/23 08:35 ONCE ONE Perflutren Lipid Microsphere 0 ml 12/15/23 20:34 Perflutren Lipid Microspheres 1.5 Ml Vial Diluted To 10 Ml Total Volume IV PUSH 12/18/23 20:35 ONCE PRN adequate visualization Protocol Radiology Results: ITS Impressions Chest X-Ray 12/15/23 14:33 IMPRESSION: Cardiomegaly with cardiac decompensation and pulmonary edema. Pneumonitis is not excluded. Bilateral minimal pleural effusion with adjacent atelectasis. Abdomen/Pelvis CT 12/15/23 16:22 IMPRESSION: 1. Bilateral pleural effusion with adjacent atelectasis. 2. Minimal pericardial effusion. Minimal cardiomegaly. 3. Ascites. 4. Thickened wall of the gallbladder. Acalculous cholecystitis cannot be excluded. 5. Medial condyle with slight fullness of the left renal pelvis and ureter. 6. Slightly dilated small bowel loops in the pelvis. Early obstruction cannot be excluded. Follow-up advised. 7. Right inguinal hernia with fluid content. Labs Labs: Laboratory Results - last 24 hr 12/15/23 12/15/23 12/15/23 14:47 15:02 23:29 WBC 7.7 RBC 3.50 L Hgb 11.6 L Hct 33.1 L MCV 94.6 MCH 33.1 MCHC 35.0 RDW 12.5 Plt Count 206 MPV 10.1 Immature Gran % (Auto) 0.4 Neut % (Auto) 82.8 H Lymph % (Auto) 8.2 L [place] % (Auto) 7.3 Eos % (Auto) 0.8 Baso % (Auto) 0.5 Lymph # (Auto) 0.63 L [place] # (Auto) 0.6 Eos # (Auto) 0.1 Baso # (Auto) 0.0 Abs Immat Gran (auto) 0.03 Absolute Neuts (auto) 6.4 Absolute Nucleated RBC 0.000 Nucleated RBC % 0.0 PT 19.2 H INR 1.6 APTT 43.7 H Sodium 123 L 125 L Potassium 4.7 4.1 Chloride 93 L 94 L Carbon Dioxide 18 L 21 L Anion Gap 12 10 BUN 33 H 34 H Creatinine 2.10 H 2.10 H Estim Creat Clear Calc 27 27 Estimated GFR 30 L 30 L Glucose 118 H 116 H Calcium 9.0 8.7 Total Bilirubin 1.1 AST 34 ALT 26 Alkaline Phosphatase 41 NT-Pro-B Natriuret Pep 81395 H Total Protein 7.0 Albumin 4.2 Triglycerides Cholesterol LDL Cholesterol Direct HDL Direct TSH (Reflex) Urine Color Yellow Urine Appearance Cloudy H Urine pH 7.5 Ur Specific [place] 1.008 Urine Protein 1+ H Urine Glucose (UA) Negative Urine Ketones Negative Ur Blood (Man) 2+ H Urine Nitrate Positive H Urine Bilirubin Negative Urine Urobilinogen 0.2 Add Ur Microanalysis Reviewed Leukocyte Esterase Rfl 3+ H Urine RBC 6-10 H Urine WBC 21-50 H Ur Squamous Epith Cells None seen Urine Bacteria 4+ H Urine Casts 3-5 12/16/23 12/16/23 05:22 05:23 WBC 5.1 RBC 3.14 L Hgb 10.1 L Hct 29.9 L MCV 95.2 MCH 32.2 MCHC 33.8 RDW 12.4 Plt Count 166 MPV 9.9 Immature Gran % (Auto) 0.6 H Neut % (Auto) 76.9 H Lymph % (Auto) 11.8 L [place] % (Auto) 8.7 H Eos % (Auto) 1.2 Baso % (Auto) 0.8 Lymph # (Auto) 0.60 L [place] # (Auto) 0.4 Eos # (Auto) 0.1 Baso # (Auto) 0.0 Abs Immat Gran (auto) 0.03 Absolute Neuts (auto) 3.9 Absolute Nucleated RBC 0.000 Nucleated RBC % 0.0 PT INR APTT Sodium 125 L Potassium 4.0 Chloride 96 L Carbon Dioxide 20 L Anion Gap 9 BUN 33 H Creatinine 2.10 H Estim Creat Clear Calc 27 Estimated GFR 30 L Glucose 96 Calcium 8.5 Total Bilirubin 0.7 AST 32 ALT 25 Alkaline Phosphatase 32 L NT-Pro-B Natriuret Pep 18028 H Total Protein 6.0 L Albumin 3.5 Triglycerides 52 Cholesterol 102 LDL Cholesterol Direct 33 HDL Direct 46 TSH (Reflex) 6.690 H Urine Color Urine Appearance Urine pH Ur Specific [place] Urine Protein Urine Glucose (UA) Urine Ketones Ur Blood (Man) Urine Nitrate Urine Bilirubin Urine Urobilinogen Add Ur Microanalysis Leukocyte Esterase Rfl Urine RBC Urine WBC Ur Squamous Epith Cells Urine Bacteria Urine Casts Quality VTE Prophylaxis VTE prophylaxis: pharmacologic ordered
[2023-12-16 07:47] LABS: Free T4 Free Thyroxine Reflex 1.26 ng/dL (0.78-2.19)
[2023-12-16] MEDS: FUROSEMIDE INJ 100 MG/10 ML VIAL 80 MG IV PUSH (08:30)
[2023-12-16] MEDS: ASPIRIN 81 MG ENTERIC TABLET PO (08:31)
[2023-12-16] MEDS: MULTIVITAMINS THERAPEUTIC TAB (*BKC) 1 TABLET PO (08:31)
[2023-12-16] MEDS: SODIUM BICARBONATE TAB 650 MG TABLET PO (08:32)
[2023-12-16 09:13] LABS: Magnesium 2.1 mg/dL (1.6-2.3); Phosphorus 4.9 mg/dL (2.5-4.5)
[2023-12-16 09:32] LABS: Total Triiodothyronine (T3) 0.82 NG/ML (0.97-1.69)
[2023-12-16 09:50] LABS: Iron 40 ug/dL (49-181); Percent Iron Saturation 14 % (20-50)
[2023-12-16 10:22] LABS: Folic Acid > 20.0 ng/mL (2.76->20); Vitamin B12 > 1000.0 pg/mL (239-931)
--- NOTE | 2023-12-16 10:48 | P.CONCA_ITS ---
Assessment and Plan Assessment and plan (1) Anasarca: Code(s): R60.1 - Generalized edema Status: Acute (2) Chronic kidney disease, stage 4 (severe): Code(s): N18.4 - Chronic kidney disease, stage 4 (severe) Status: Acute Plan This is an 88-year-old man with a history of atrial fibrillation and a pacemaker who is coming into the hospital with slowly progressive edema/volume overload for several months. It is not clear if there is a cardiac reason for this. He does have stage 4 chronic kidney disease which is documented in the chart as his senior net software developer notes are available for review. At this point I would recommend resuming his losartan since both his router tender and senior net software developer had him on this medication and it can be helpful for preservation of renal function. I would use intravenous Bumex to try to stimulated diuresis at this time. It would probably be helpful to consult his senior net software developer since they are managing him chronically. An echocardiogram has been requested to assess his cardiovascular status as I have no records of any of that as he does not receive his cardiovascular care at this hospital. It sounds like his established classification case manager was considering a lower extremity procedure for venous insufficiency Eladio Acuña MD [facility] History of Present Illness History of Present Illness Consult date/time: 12/16/23 10:48 Reason For Visit: Anasarca, shortness breath, UTI Narrative: This is an 88-year-old man unknown to me prior to this encounter when seeing at the request of the hospitalist because of edema/swelling picture of anasarca. The patient says that he began to have lower extremity edema several months ago earlier in the summer. He was attributing this initially to being placed on bicarbonate by his senior net software developer. He has chronic kidney disease and states that after being started on bicarbonate he noticed swelling which is gradually progr essed and got worse. He says the dosage of his bicarb has been decreased but despite this edema has progressively gotten worse. The patient has a cardiac history that he says is remarkable for atrial fibrillation and implantation of a pacemaker. His classification case manager is a member of [facility] [employer] [facility] who manages him for history of atrial fibrillation and the pacemaker is mentioned above. He says he received a pacemaker in 2021 we do not have any of the details of the records of his arrhythmia or pacemaker device. His current rhythm is atrially paced for the most part. He is not having any chest pain orthopnea or PND. He does notice over the last couple of months slowly worsenin g shortness of breath. He says that he is not known to have coronary artery disease and does remember having a coronary angiogram done many years ago for reasons that he cannot remember. There are notes from his senior net software developer who is on staff here at this hospital that indicate he has stage 4 chronic kidney disease. His baseline medical regimen includes amlodipine, furosemide, hydralazine, isosorbide, and losartan. His anticoagulant is ordered but none of the rest of his medications are ordered at this time. He did receive some intravenous furosemide yesterday but no ongoing diuretics are being ordered at this time. He is otherwise comfortable and visiting with his sons who are in the room with him. I pointed out to him that it would have been to some advantage if he were presenting to the hospital where his router tender and classification case manager are available to participate in his care. The patient did state that his classification case manager who sees him recently saw him in the office for evaluation of this edema and discussed performing a lower extremity venous procedure. Review of Systems Constitutional: Constitutional: Reports lethargy Eyes: Eyes: Reports no additional eye complaints ENT: Reports system reviewed and no additional complaints, except as documented Cardiovascular: Cardiovascular: Reports leg edema Respiratory: Respiratory: Reports dyspnea on exertion Gastrointestinal: Gastrointestinal: Reports no additional gastrointestinal co mplaints Musculoskeletal: Musculoskeletal: Reports no additional musculoskeletal complaints Neurologic: Reports system reviewed and no additional complaints, except as documented Endocrine: Endocrine: Reports no additional endocrine complaints Hematologic/Lymphatic: Hematologic/Lymphatic: Reports no additional hematologic/lymphatic complaints Allergic/Immunologic: Allergic/Immunologic: Reports no additional allergic/immunologic complaints [facility] Past Medical History Medical History Bladder cancer Heart disease Hyperlipidemia Hypertension Pacemaker Prostate cancer Surgical History Surgical History H/O cystoscopy bladder tumor excision Family History Family History Sibling Cancer Heart disease Social History Social History Smoking status: Never smoker Tobacco type: cigars Second hand tobacco smoke exposure: No Smoking end date: 02/26/79 Additional smoking assessment comments: SMOKED ~ 1 CIGAR /WEEK FOR ~ 10 YEARS Alcohol intake: current Alcohol use details: VERY RARELY Substance use: never Do You Feel Safe in your Home?: Yes Lack of Transportation: No Lack of Food: Never True Current Housing: I Have Housing Concerned About Future Housing: No Difficulty Paying Gas/Electric Bills: No Difficulty Paying for Meds: No Currently Unemployed: No Education: Master's Degree or Higher Difficulty w/ Childcare or Family Care: No Living arrangements: with family Occupation/Education: retired Gender identity (if verbalized by the patient): Male Sexual Orientation (if Verbalized by the Patient): Straight or Heterosexual Spiritual care concerns: No Meds Home Medications and Allergies Home Medications Medication Instructions Recorded Confirmed Type aspirin 81 mg tablet,delayed 81 mg PO DAILY 10/29/19 12/15/23 History release (Aspir-) multivitamin (Multiple Vitamins 1 tablet PO DAILY 10/29/19 12/16/23 History tablet) potassium chloride 20 mEq 20 meq PO QAM 10/29/19 12/16/23 History tablet,extended release(part/cryst) pravastatin 80 mg tablet 80 mg PO HS 10/29/19 12/16/23 History apixaban 2.5 mg tablet (Eliquis) 2.5 mg PO BID 07/04/21 12/15/23 History isosorbide mononitrate 30 mg 30 mg PO DAILY 07/04/21 12/16/23 History tablet,extended release 24 hr losartan 100 mg tablet 100 mg PO DAILY 07/04/21 12/16/23 History amlodipine 5 mg tablet 5 mg PO DAILY 06/06/22 12/16/23 History hydralazine 10 mg tablet 10 mg PO TID 06/06/22 12/16/23 History furosemide 40 mg tablet 80 mg PO QAM 03/22/23 12/15/23 History Allergies Allergy/AdvReac Type Severity Reaction Status Date / Time No Known Allergies Allergy Unknown Verified 09/24/23 08:24 Vital Signs Vital Signs - 24 hr 12/15/23 13:47 12/15/23 16:58 12/15/23 17:23 Temperature 36.3 C L Pulse Rate 69 69 72 Respiratory Rate 20 16 18 Blood Pressure 143/95 H 131/71 134/76 Pulse Oximetry 97 98 97 Oxygen Delivery Room Air 12/15/23 18:24 12/15/23 20:57 12/15/23 23:34 Temperature 36.5 C 36.5 C 37.0 C Pulse Rate 72 69 69 Respiratory Rate 18 17 18 Blood Pressure 137/68 121/69 117/68 Pulse Oximetry 98 95 96 Oxygen Delivery 12/15/23 20:40 12/16/23 03:32 12/16/23 04:00 Temperature 36.6 C Pulse Rate 70 69 Respiratory Rate 17 Blood Pressure 112/59 L Pulse Oximetry 96 96 Oxygen Delivery Room Air 12/16/23 08:00 Temperature 36.5 C Pulse Rate 64 Respiratory Rate 16 Blood Pressure 118/62 Pulse Oximetry 96 Oxygen Delivery Exam Const: General: comfortable and no acute distress HENMT: Mouth: Yes moist mucous membranes Eyes: Sclera: sclerae normal Neck: Neck: supple Other: Patient has jugular venous distention to the angle of the jaw Resp: Effort & Inspection: normal respiratory effort Auscultation: clear to auscultation bilaterally Cardio: Rate: regular rate Rhythm: regular rhythm Other: Very soft apical systolic murmur no gallop GI: GI Palp: Yes Soft to palpation Auscultation: normal bowel sounds Skin: General skin exam: normal color Neuro: Other: Alert and oriented x3 Extrem: Other: Chronic tense pitting edema up to the thighs bilateral Results Labs and Meds 12/16/23 05:22 12/16/23 05:22 Lab results: Cardiac Enzymes 12/15/23 12/16/23 Range/Units 14:47 05:22 AST 34 32 (17-59) U/L Coagulation 12/15/23 Range/Units 14:47 PT 19.2 H (11.1-14.7) Seconds APTT 43.7 H (22.3-36.8) Seconds Lipids 12/16/23 Range/Units 05:22 Triglycerides 52 (<150) mg/dL Cholesterol 102 (0-200) mg/dL CBC 12/15/23 12/16/23 Range/Units 14:47 05:22 WBC 7.7 5.1 (4.5-10.0) K/mm3 RBC 3.50 L 3.14 L (4.6-6.20) M/mm3 Hgb 11.6 L 10.1 L (14.0-18.0) g/dL Hct 33.1 L 29.9 L (42.0-52.0) % Plt Count 206 166 (150-375) k/mm3 Lymph # (Auto) 0.63 L 0.60 L (0.9-3.2) K/mm3 [place] # (Auto) 0.6 0.4 (0.1-0.6) K/mm3 Eos # (Auto) 0.1 0.1 (0-0.3) K/mm3 Baso # (Auto) 0.0 0.0 (0.0-0.1) K/mm3 Comprehensive Metabolic Panel 12/15/23 12/15/23 12/16/23 Range/Units 14:47 23:29 05:22 Sodium 123 L 125 L 125 L (137-145) mmol/L Potassium 4.7 4.1 4.0 (3.4-5.0) mmol/L Chloride 93 L 94 L 96 L (98-107) mmol/L Carbon Dioxide 18 L 21 L 20 L (22-30) mmol/L BUN 33 H 34 H 33 H (9-20) mg/dL Creatinine 2.10 H 2.10 H 2.10 H (0.7-1.3) mg/dL Glucose 118 H 116 H 96 (65-110) mg/dL Calcium 9.0 8.7 8.5 (8.4-10.2) mg/dL AST 34 32 (17-59) U/L ALT 26 25 (6-50) U/L Alkaline Phosphatase 41 32 L (38-126) U/L Total Protein 7.0 6.0 L (6.3-8.2) g/dL Albumin 4.2 3.5 (3.5-5.1) g/dL Intake and Output 12/15/23 12/16/23 12/16/23 23:59 07:59 15:59 Intake Total 50 530 Output Total 700 800 Balance -650 -800 530 Intake: IV 50 50 cefTRIAXone 1 GM/NS 50 ML 1 gm 50 50 In 50 ml @ 100 mls/hr IVPB Q24H [facility] Rx#:[id number] Oral 480 Output: Catheter Urine 700 800 Urethral Catheter 700 800 Patient Weight 12/16/23 23:59 Weight 106.7 kg
[2023-12-16 11:54] LABS: Sodium Urine Random 75 meq/L
[2023-12-16] MEDS: LOSARTAN POTASSIUM 100 MG TABLET PO (12:27)
--- NOTE | 2023-12-16 13:20 | P.CONNP_ITS ---
Assessment and Plan Assessment and plan (1) Chronic kidney disease, stage 4 (severe): Code(s): N18.4 - Chronic kidney disease, stage 4 (severe) Status: Chronic Assessment and Plan: * baseline creatinine runs ~ 2.0 - 2.2mg/dl * due to long standing hypertension along with age-related change based on outpatient evaluation * follows with Dr. Marx for management of his CKD (2) CHF exacerbation: Code(s): I50.9 - Heart failure, unspecified Status: Acute Assessment and Plan: * as noted by symptoms/findings on admission * not requiring supplemental oxygen * on diuretic therapy * follow daily weights, I/Os, and fluid status * follow clinical symptoms (3) UTI (urinary tract infection): Code(s): N39.0 - Urinary tract infection, site not specified Status: Acute Assessment and Plan: * admission UA suggestive * follow urine culture * on antibiotics (4) Hyponatremia: Code(s): E87.1 - Hypo-osmolality and hyponatremia Status: Chronic Assessment and Plan: * chronic issue at baseline * maybe partly related to #2 * follow trend with treatment of volume overload * add fluid restriction I will continue to follow the patient with you while he remains hospitalized and make further recommendations as deemed necessary. Thank you for allowing me to participate in the care of this patient. History of Present Illness Reason for Consult Consult date: 12/16/23 Reason for consult: chronic renal failure Chief Complaint Chief complaint: Anasarca, shortness breath, UTI History of Present Illness Narrative: The patient is a 88-year-old male with a past medical history as outlined below who presented to [facility] Emergency room with complaints of increasing lower extremity edema and abdominal swelling. Patient reports that recently he had his Lasix increased to aid with chronic lower extremity swelling. Patient reports that on the morning of admision he was trying to ambulate back from the bathroom he noticed an increase in his chronic SOB. He denied any chest pain, nausea vomiting, dizziness or headache or fall at that time. Given this change in his clinical status, he presented to the emergency room for further assessment. Workup and evaluation in the emergency room demonstrated that he was afebrile with no leukocytosis and a creatinine is baseline patient was hyponatremic with a sodium of 123, elevated BNP > 22,000 his urine was positive for nitrates and white blood cells and bacteria. Patient was given Lasix in the ED suspected anasarca fluid overload, abdominal CT reveals bilateral pleural effusion with adjacent atelectasis, minimal pericardial effusion minimal cardiomegaly and ascites. He was subsequently admitted to the hospital for further evaluation and therapy. Renal consultation was requested due to his known history of chronic kidney disease. The patient normally follows with Dr. Luz Marx in clinic for management of his chronic kidney disease which is thought to be secondary to longstanding hypertension in association with age-related change. His baseline creatinine in the last year so has been fluctuating anywhere from 2.0-2.2 mg/dL. As noted by labs on admission, his creatinine is at baseline. Currently, at the time my evaluation, he is not appear to be in any acute distress. Review of Systems Review of Systems: As per HPI. [facility] Past Medical History Medical History (Updated 01/16/24 @ 00:46 by Criselda Bell MD) Atrial fibrillation Bladder cancer Heart disease Hyperlipidemia Hypertension Pacemaker Prostate cancer Surgical History Surgical History H/O cystoscopy bladder tumor excision Family History Family History Sibling Cancer Heart disease Social History Social History Smoking status: Never smoker Tobacco type: cigars Second hand tobacco smoke exposure: No Smoking end date: 02/26/79 Additional smoking assessment comments: SMOKED ~ 1 CIGAR /WEEK FOR ~ 10 YEARS Alcohol intake: current Alcohol use details: VERY RARELY Substance use: never Do You Feel Safe in your Home?: Yes Lack of Transportation: No Lack of Food: Never True Current Housing: I Have Housing Concerned About Future Housing: No Difficulty Paying Gas/Electric Bills: No Difficulty Paying for Meds: No Currently Unemployed: No Education: Master's Degree or Higher Difficulty w/ Childcare or Family Care: No Living arrangements: with family Occupation/Education: retired Gender identity (if verbalized by the patient): Male Sexual Orientation (if Verbalized by the Patient): Straight or Heterosexual Spiritual care concerns: No Meds Home Medications and Allergies Home Medications Medication Instructions Recorded Confirmed Type aspirin 81 mg tablet,delayed 81 mg PO DAILY 10/29/19 12/15/23 History release (Aspir-) multivitamin (Multiple Vitamins 1 tablet PO DAILY 10/29/19 12/16/23 History tablet) pravastatin 80 mg tablet 80 mg PO HS 10/29/19 12/16/23 History apixaban 2.5 mg tablet (Eliquis) 2.5 mg PO BID 07/04/21 12/15/23 History isosorbide mononitrate 30 mg 30 mg PO DAILY 07/04/21 12/16/23 History tablet,extended release 24 hr losartan 100 mg tablet 100 mg PO DAILY 07/04/21 12/16/23 History amlodipine 5 mg tablet 5 mg PO DAILY 06/06/22 12/16/23 History hydralazine 10 mg tablet 10 mg PO TID 06/06/22 12/16/23 History bumetanide 1 mg tablet 1 mg PO BID #60 tabs 12/21/23 Rx ferrous sulfate 325 mg (65 mg 325 mg PO BID #30 tabs 12/21/23 Rx iron) tablet,delayed release losartan 100 mg tablet 100 mg PO DAILY #30 tabs 12/21/23 Rx potassium chloride 20 mEq 20 meq PO BID #60 tabs 12/21/23 Rx tablet,extended release(part/cryst) Allergies Allergy/AdvReac Type Severity Reaction Status Date / Time No Known Allergies Allergy Unknown Verified 09/24/23 08:24 Vital Signs Vital Signs Temp Pulse Resp BP Pulse Ox O2 Del Method 12/16/23 12:00 97.6 F 66 17 120/68 97 12/16/23 08:00 67 12/16/23 08:00 97.7 F 64 16 118/62 96 12/16/23 04:00 69 12/16/23 03:32 97.8 F 70 17 112/59 L 96 12/15/23 20:40 96 Room Air 12/15/23 23:34 98.6 F 69 18 117/68 96 12/15/23 20:57 97.7 F 69 17 121/69 95 12/15/23 18:24 97.7 F 72 18 137/68 98 12/15/23 17:23 72 18 134/76 97 12/15/23 16:58 69 16 131/71 98 Exam Narrative: GENERAL APPEARANCE: elderly but well developed well nourished male in no acute distress HEENT: normocephalic, atraumatic, normal conjunctiva and sclera, nares patient NECK: no lymphadenopathy or thyromegaly MOUTH: normal lips, teeth, and gums CARDIOVASCULAR: RRR, normal S1 and S2, no rub RESPIRATORY: clear anteriorly; decreased at bases ABDOMEN: soft, nontender; mild lower abdominal distension, positive bowel sounds present EXTREMITIES: no evidence of cyanosis, clubbing, 2 - 3+ edema (LEs up to lower abdomen) NEUROLOGICAL: alert and oriented x 3; CN II - XII intact bilaterally; no focal deficits noted Results Lab Results 12/21/23 05:54 12/21/23 05:54 Lab results: Most recent lab results Calcium 8.5 mg/dL (8.4-10.2) 12/16/23 05:22 Phosphorus 4.9 mg/dL (2.5-4.5) H 12/16/23 05:22 Magnesium 2.1 mg/dL (1.6-2.3) 12/16/23 05:22
[2023-12-16] MEDS: hydrALAZINE 10 MG TABLET PO ×2 (14:09→17:36)
[2023-12-16] MEDS: BUMETANIDE INJ 1 MG/4 ML VIAL IV PUSH (17:36)
[2023-12-16] MEDS: FERROUS SULFATE 325 MG TABLET DR PO (17:36)
[2023-12-16] MEDS: metOLazone 2.5 MG TABLET PO (17:38)
[2023-12-16] MEDS: APIXABAN 2.5 MG TABLET PO (21:17)
[2023-12-16] MEDS: SENNA/DOCUSATE SODIUM TABLET 1 TAB PO (21:17)
[2023-12-16] MEDS: PRAVASTATIN SODIUM 20 MG TABLET 80 MG PO (21:17)
[2023-12-17] VITALS (11 sets, daily range): BP systolic 121–162; BP diastolic 67–83; PULSE 69–92; RESP 12–22; TEMP 35.9–36.7; O2SAT 96–99
[2023-12-17 05:46] LABS: Basophils Absolute Auto 0.1 K/mm3 (0.0-0.1); Basophils Percent Auto 0.8 % (0.2-1.2); Eosinophils Absolute Auto 0.1 K/mm3 (0-0.3); Eosinophils Percent Auto 2.2 % (0-4.4); Hematocrit 34.4 % (42.0-52.0); Hemoglobin 11.9 g/dL (14.0-18.0); Immature Granulocyte Absolute 0.02 K/mm3 (0.00-0.031); Immature Granulocyte Percent A 0.3 % (0-0.5); Lymphocytes Absolute Auto 0.94 K/mm3 (0.9-3.2); Lymphocytes Percent Auto 15.6 % (18.3-44.2); Mean Corpuscular HGB Conc 34.6 g/dl (32-36); Mean Corpuscular Hemoglobin 33.7 pg (26-34); Mean Corpuscular Volume 97.5 fl (80-100); Mean Platelet Volume 10.5 fl (7.4-10.4); Monocytes Absolute Auto 0.6 K/mm3 (0.1-0.6); Monocytes Percent Auto 10.3 % (2.6-8.5); Neutrophils Absolute Auto 4.3 K/mm3 (1.3-6.7); Neutrophils Percent Auto 70.8 % (45.5-73.1); Platelet Count Result 185 k/mm3 (150-375); Red Blood Count 3.53 M/mm3 (4.6-6.20); Red Cell Distribution Width 12.7 % (11.5-14.5)
[2023-12-17 06:00] LABS: Alanine Aminotransferase 27 U/L (6-50); Albumin Level 3.9 g/dL (3.5-5.1); Alkaline Phosphatase 38 U/L (38-126); Anion Gap 11 mmol/L (4-12); Aspartate Amino Transferase 34 U/L (17-59); Bilirubin,Total 0.8 mg/dL (0.2-1.3); Blood Urea Nitrogen 31 mg/dL (9-20); Carbon Dioxide 21 mmol/L (22-30); Chloride 96 mmol/L (98-107); Estimated CRCL calculation 27 ml/min; Estimated Glomerular Filt Rate 30; Glucose 107 mg/dL (65-110); Potassium 3.2 mmol/L (3.4-5.0); Sodium 128 mmol/L (137-145)
--- NOTE | 2023-12-17 07:17 | P.PNIM_ITS ---
Progress Note: A&P Assessment and Plan (1) CHF exacerbation: Code(s): I50.9 - Heart failure, unspecified Status: Acute Assessment and Plan: Patient presented with complaints of shortness of breath and increased lower extremity edema and abdominal distention. BNP 22,000 on admission. Chest x-ray shows cardiomegaly with cardiac decompensation and pulmonary edema and bilateral pleural effusion with ascites. He received IV Lasix 80 mg in the ED. Currently not requiring oxygen. * Received IV Lasix 80 mg today. Cardiology recommends diuresis with Bumex 1 mg BID. Nephrology added metolazone 2.5 mg PO once. * BNP elevated. No ECHO on file, ECHO ordered for today. Review of nephrology clinic notes state LVH EF 44% and aortic sclerosis from ECHO in 2019. * strict I&O, daily weights * Weight from 08/2023 93.44 Kg, weight this admission is 106.3 kg * Low sodium diet, fluid restriction of 1200 ml * Repeat x-ray shows minimal pleural effusion * Venous duplex was negative for DVT * thigh high DWAIN hose ordered, SCD ordered * Continue Eliquis 2.5 mg PO BID (2) UTI (urinary tract infection): Code(s): N39.0 - Urinary tract infection, site not specified Status: Acute Assessment and Plan: UA concerning of infection. cloudy colored urine with positive nitrates, 3+ leukocytes, pyuria, and 4+ bacteria. Normal WBC with elevated neutrophils. Patient has urostomy. * Urine culture is growing gram negative bacilli * He was started on Rocephin * Urine culture grew klebsiella. He had complaints of abdominal pain, cloudy urine, and weakness. There is a chance this is colonization as it is unclear if the urine sample was obtained from a clean urostomy bag. Given non-specific symptoms and age will finish a 5 day course with cefdinir renally dosed. (3) Chronic kidney disease, stage 4 (severe): Code(s): N18.4 - Chronic kidney disease, stage 4 (severe) Status: Acute Assessment and Plan: Creatinine seems to be at baseline 2.10 with GFR 30. Potassium 4.0, phosphorus pending * Diuresis with assistance of nephrology, cardiology. Rec's appreciated * Currently receiving Bumex 1 mg IVP BID and metolazone 2.5 mg PO one time * Urostomy to Blake bag, strict I&O * Urine output for the last 24 hours was 2.7L, 1.08 ml/kg/hr. Net negative 6070 ml for this admission (4) Diarrhea: Code(s): R19.7 - Diarrhea, unspecified Status: Acute Assessment and Plan: Patient reports watery stool of the last few days. Today stool is semi formed and he is passing flatus. CT abdomen and pelvis showed mildly dilated loops of small bowel. He denies abdominal pain, nausea, vomiting. His abdomen is distended with tinkling bowel sounds. 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 Sodium on admission was 123. Sodium 135 from 09/10/23. He feels weak. * Improving with diuresis * Fluid restriction 1.2 L * Nephrology is following Subjective Date/time seen: 12/17/23 07:17 Interval history: No acute events overnight. He is up in the chair. He notes his dyspnea is improved and he does have some improvement in his lower extremity swelling. He is concerned he is still too swollen to go home today. He is concerned that he has not had a bowel movement since yesterday but plenty of gas. He is tolerating a diet without abdominal pain, nausea or vomiting. He has questions about his venous surgery which I am not able to address. 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 Review of Systems Review of Systems: All systems reviewed & are unremarkable except as noted in HPI and below Exam Narrative: General: appears comfortable, in no acute distress Respiratory: breathing is unlabored with even chest rise/fall, lungs are diminished, no crackles appreciated today Cardiovascular: Rate and rhythm regular, normal s1s2, no murmur Abdomen: distended, soft, active bowel sounds, non-tender, active bowel sounds. Urostomy present with clear yellow urine. Extremities: No cyanosis. Bilateral lower extremity edema with right greater than left, +2 pitting to bilateral lower legs. Edema is improving. Neuro: A&O x 4, pleasant, good insight and judgement Skin: Warm, dry, intact Objective Data Vital Signs Vital Signs: Vital Signs - 24 hr 12/16/23 08:00 12/16/23 08:00 12/16/23 12:01 Temperature 97.7 F Pulse Rate 64 67 70 Respiratory Rate 16 Blood Pressure 118/62 Pulse Oximetry 96 Oxygen Delivery 12/16/23 08:30 12/16/23 12:00 12/16/23 16:03 Temperature 97.6 F Pulse Rate 66 69 Respiratory Rate 17 Blood Pressure 120/68 Pulse Oximetry 97 Oxygen Delivery Room Air 12/16/23 16:00 12/16/23 20:00 12/17/23 00:00 Temperature 97.6 F 98.2 F 98.0 F Pulse Rate 78 69 69 Respiratory Rate 18 18 18 Blood Pressure 122/70 122/71 138/77 Pulse Oximetry 97 99 96 Oxygen Delivery 12/16/23 21:17 12/16/23 20:00 12/17/23 00:04 Temperature Pulse Rate 65 70 Respiratory Rate Blood Pressure Pulse Oximetry 96 Oxygen Delivery Room Air 12/17/23 04:00 12/17/23 05:59 12/17/23 04:00 Temperature 98.0 F 97.7 F Pulse Rate 69 70 92 Respiratory Rate 18 18 Blood Pressure 140/83 162/77 H Pulse Oximetry 97 98 Oxygen Delivery Intake/Output Intake/Output: Intake & Output 12/14/23 12/15/23 12/16/23 12/17/23 23:59 23:59 23:59 23:59 Intake Total 50 980 Output Total 700 8830 6177 Balance -[phone] -[phone] -0327 Meds/Results Medications: Active Medications Generic Name Dose Route Start Last Admin Trade Name Jesus PRN Reason Stop Dose Admin Apixaban 2.5 mg 12/15/23 21:00 12/16/23 21:17 Apixaban 2.5 Mg Tablet PO 2.5 mg Q12HR AMOR Administration Aspirin 81 mg 12/16/23 09:00 12/16/23 08:31 Aspirin 81 Mg Enteric Tablet PO 81 mg DAILY AMOR Administration Bumetanide 1 mg 12/16/23 17:00 12/16/23 17:36 Bumetanide Inj 1 Mg/4 Ml Vial IV PUSH 1 mg BID AMOR Administration Ferrous Sulfate 325 mg 12/16/23 17:00 12/16/23 17:36 Ferrous Sulfate [address] PO 325 mg BID AMOR Administration Hydralazine HCl 10 mg 12/16/23 13:00 12/16/23 17:36 Hydralazine 10 Mg Tablet PO 10 mg TID AMOR Administration Ceftriaxone Sodium 1 gm in 50 mls @ 100 mls/hr 12/16/23 08:15 12/16/23 10:05 Rocephin 1 Gm/Ns 50 Ml IVPB Infused Q24H AMOR Infusion Isosorbide Mononitrate 30 mg 12/17/23 09:00 Isosorbide Mononitrate 30 Mg Tab.Er.24h PO DAILY AMOR Losartan Potassium 100 mg 12/16/23 11:00 12/16/23 12:27 Losartan Potassium 100 Mg Tablet PO 100 mg DAILY AMOR Administration Multivitamins Therapeutic 1 tablet 12/16/23 09:00 12/16/23 08:31 Multivitamins Therapeutic Tab (*Bkc) PO 1 tablet DAILY AMOR Administration Perflutren Lipid Microsphere 0 ml 12/15/23 20:34 Perflutren Lipid Microspheres 1.5 Ml Vial Diluted To 10 Ml Total Volume IV PUSH 12/18/23 20:35 ONCE PRN adequate visualization Protocol Pravastatin Sodium 80 mg 12/16/23 21:00 12/16/23 21:17 Pravastatin Sodium 20 Mg Tablet PO 80 mg HS AMOR Administration Senna/Docusate Sodium 1 tab 12/16/23 21:00 12/16/23 21:17 Senna/Docusate Sodium Tablet PO 1 tab HS AMOR Administration Radiology Results: ITS Impressions Chest X-Ray 12/15/23 14:33 IMPRESSION: Cardiomegaly with cardiac decompensation and pulmonary edema. Pneumonitis is not excluded. Bilateral minimal pleural effusion with adjacent atelectasis. Abdomen/Pelvis CT 12/15/23 16:22 IMPRESSION: 1. Bilateral pleural effusion with adjacent atelectasis. 2. Minimal pericardial effusion. Minimal cardiomegaly. 3. Ascites. 4. Thickened wall of the gallbladder. Acalculous cholecystitis cannot be excluded. 5. Medial condyle with slight fullness of the left renal pelvis and ureter. 6. Slightly dilated small bowel loops in the pelvis. Early obstruction cannot be excluded. Follow-up advised. 7. Right inguinal hernia with fluid content. Venous Doppler Study 12/16/23 14:43 IMPRESSION: Negative bilateral lower extremity venous US. No deep vein thrombosis. Labs Labs: Laboratory Results - last 24 hr 12/16/23 12/16/23 12/16/23 05:22 05:23 11:27 WBC RBC Hgb Hct MCV MCH MCHC RDW Plt Count MPV Immature Gran % (Auto) Neut % (Auto) Lymph % (Auto) [place] % (Auto) Eos % (Auto) Baso % (Auto) Lymph # (Auto) [place] # (Auto) Eos # (Auto) Baso # (Auto) Abs Immat Gran (auto) Absolute Neuts (auto) Absolute Nucleated RBC Nucleated RBC % Sodium Potassium Chloride Carbon Dioxide Anion Gap BUN Creatinine Estim Creat Clear Calc Estimated GFR Glucose Calcium Phosphorus 4.9 H Magnesium 2.1 Iron 40 L TIBC 284 % Saturation 14 L Total Bilirubin AST ALT Alkaline Phosphatase Total Protein Albumin Vitamin B12 > 1000.0 H Folate > 20.0 H Free T4 1.26 Total T3 0.82 L Ur Random Sodium 75 12/17/23 04:56 WBC 6.0 RBC 3.53 L Hgb 11.9 L Hct 34.4 L MCV 97.5 MCH 33.7 MCHC 34.6 RDW 12.7 Plt Count 185 MPV 10.5 H Immature Gran % (Auto) 0.3 Neut % (Auto) 70.8 Lymph % (Auto) 15.6 L [place] % (Auto) 10.3 H Eos % (Auto) 2.2 Baso % (Auto) 0.8 Lymph # (Auto) 0.94 [place] # (Auto) 0.6 Eos # (Auto) 0.1 Baso # (Auto) 0.1 Abs Immat Gran (auto) 0.02 Absolute Neuts (auto) 4.3 Absolute Nucleated RBC 0.000 Nucleated RBC % 0.0 Sodium 128 L Potassium 3.2 L Chloride 96 L Carbon Dioxide 21 L Anion Gap 11 BUN 31 H Creatinine 2.10 H Estim Creat Clear Calc 27 Estimated GFR 30 L Glucose 107 Calcium 9.0 Phosphorus Magnesium Iron TIBC % Saturation Total Bilirubin 0.8 AST 34 ALT 27 Alkaline Phosphatase 38 Total Protein 7.0 Albumin 3.9 Vitamin B12 Folate Free T4 Total T3 Ur Random Sodium Quality VTE Prophylaxis VTE prophylaxis: pharmacologic ordered
--- NOTE | 2023-12-17 08:00 | ECHO_ITS ---
Patient Info Name: Khoa Hammonds Age: 88 years : 1935 Gender: Male Ht: 75 in Wt: 235 lbs BSA: 2.39 m2 HR: 70 bpm BP: 162 / 77 mmHg Heart Rhythm: Paced Technical Quality: Fair Exam Date: 12/17/2023 10:52 AM Exam Location: Echo Lab Patient Status: Inpatient Admit Date: 12/15/2023 Staff Ordering Physician: Jes Reyes APRN Quality Analyst/Technical Writer: Usman Dickson RDCS Attending Provider: Drea Hoover APRN Referring Physician: Eric BUTLER; Exam Type: CA echo doppler color flow Study Info Indications R06.02 - Shortness of breath Complete two-dimensional, color flow and Doppler transthoracic echocardiogram is performed. Summary 1. Complete two-dimensional, color flow and Doppler transthoracic echocardiogram is performed. 2. Mild left ventricular dilation with global systolic function ejection fraction approximately 40%. 3. Biatrial dilation left greater than right. 4. Pacemaker lead noted. 5. Trivial aortic regurgitation. 6. Mild mitral tricuspid and pulmonic regurgitation. Left Ventricle Left ventricular chamber dimension is mildly enlarged. Left ventricular systolic function is mildly reduced, estimated at 40-45%. The left ventricular diastolic function is indeterminate. Right Ventricle Right ventricular chamber dimension is normal. Linear artifact in right ventricle suggestive of catheter(s), pacemaker lead(s), or ICD lead(s). Left Atria Left atrial chamber dimension is moderately enlarged. Right Atria Right atrial chamber dimension is mildly enlarged. Linear artifact in the right atrium suggestive of catheter(s), pacemaker lead(s), or ICD lead(s). Aortic Valve The aortic valve is trileaflet. There is mild aortic valve sclerosis. There is trace aortic valve regurgitation. Pulmonic Valve The pulmonic valve is normal. There is mild pulmonic regurgitation. Mitral Valve The mitral valve has normal leaflets. There is mild mitral valve regurgitation. Tricuspid Valve The tricuspid valve leaflets are normal. There is mild tricuspid valve regurgitation. Pericardium/Pleural There is trivial pericardial effusion. Aorta The aortic root size at the sinus of Valsalva is normal. Left Ventricular Outflow Tract Name Value Normal LVOT Doppler LVOT Peak Gradient 3 mmHg LVOT Mean Gradient 1 mmHg LVOT VTI 14 cm LVOT VTI/AV VTI Ratio 0.5 Pulmonic Valve Name Value Normal PV Doppler PV Peak Gradient 4 mmHg PV Regurgitation Doppler LA Peak End Diastolic Velocity 97 cm/s Mitral Valve Name Value Normal MV Doppler MV Decel Meigs 565 cm/s2 MV PHT 51 ms MV Area (PHT) 4.3 cm2 4.0-5.0 MV Diastolic Function MV E Peak Velocity 99 cm/s MV A Peak Velocity 35 cm/s MV E/A 2.9 MV Decel Time 176 ms Tricuspid Valve Name Value Normal TV Regurgitation Doppler TR Peak Velocity 273 cm/s TR Peak Gradient 30 mmHg Aortic Valve Name Value Normal AV Doppler AV Peak Velocity 151 cm/s AV Peak Gradient 9 mmHg AV Mean Gradient 5 mmHg AV VTI 27 cm Ventricles Name Value Normal LV Dimensions 2D/MM IVS Diastolic Thickness (2D) 1.0 cm 0.6-1.0 IVS Diastole Thickness (MM) 0.9 cm 0.6-1.0 LVID Diastole (2D) 6.0 cm 4.2-5.8 LVID Diastole (MM) 6.7 cm 4.2-5.8 LVIW Diastolic Thickness (2D) 1.0 cm 0.6-1.0 LVIW Diastolic Thickness (MM) 1.1 cm 0.6-1.0 LVID Systole (2D) 4.5 cm 2.5-4.0 LVID Systole (MM) 4.3 cm 2.5-4.0 LV Mass (2D Cubed) 246.84 g 88.00-224.00 LV Mass Index (2D Cubed) 103 g/m2 49-115 Relative Wall Thickness (2D) 0.32 LV Mass (MM Cubed) 295.19 g 88.00-224.00 LV Mass Index (MM Cubed) 123 g/m2 49-115 Relative Wall Thickness (MM) 0.32 LV Fractional Shortening/Ejection Fraction 2D/MM LV Fractional Shortening (2D) 25 % 25-43 LV Fractional Shortening (MM) 35 % 25-43 LV EF (MM Teicholz) 63 % 52-72 LV EF (2D Teicholz) 48 % 52-72 LV Diastolic Volume (4C MOD) 145 ml LV EF (4C MOD) 41 % LV Diastolic Volume (2C MOD) 158 ml LV EF (2C MOD) 39 % LV Diastolic Volume (BP MOD) 153 ml 62-150 LV Diastolic Volume Index (BP MOD) 64 ml/m2 34-74 LV Systolic Volume (BP MOD) 91 ml 21-61 LV Systolic Volume Index (BP MOD) 38 ml/m2 11-31 LV EF (BP MOD) 40 % 52-72 LV Diastolic Length (4C) 8.9 cm LV Systolic Length (4C) 8.4 cm LV Stroke Volume (4C MOD) 60 ml Atria Name Value Normal LA Dimensions LA Volume (4C A-L) 98 ml LA Volume (BP A-L) 116 ml RA Dimensions RA Area (4C) 29.7 cm2 <=18.0 Report Signatures
[2023-12-17] MEDS: POTASSIUM CHLORIDE 20 MEQ PACKET (FOR LIQUID) 40 MEQ PO ×2 (08:52→17:44)
[2023-12-17] MEDS: BUMETANIDE INJ 1 MG/4 ML VIAL IV PUSH ×2 (08:52→17:45)
[2023-12-17] MEDS: ISOSORBIDE MONONITRATE 30 MG TAB.ER.24H PO (08:52)
[2023-12-17] MEDS: APIXABAN 2.5 MG TABLET PO ×2 (08:52→21:12)
[2023-12-17] MEDS: MULTIVITAMINS THERAPEUTIC TAB (*BKC) 1 TABLET PO (08:53)
[2023-12-17] MEDS: ASPIRIN 81 MG ENTERIC TABLET PO (08:53)
[2023-12-17] MEDS: hydrALAZINE 10 MG TABLET PO ×3 (08:53→17:44)
[2023-12-17] MEDS: FERROUS SULFATE 325 MG TABLET DR PO ×2 (08:53→17:45)
--- NOTE | 2023-12-17 08:55 | P.PNCA_ITS ---
Progress Note: A&P Assessment and Plan (1) Anasarca: Code(s): R60.1 - Generalized edema Status: Acute Assessment and Plan: Improving with IV Bumex. Continue. Potassium is 3.2 and getting replaced. Echo pending. (2) Chronic kidney disease, stage 4 (severe): Code(s): N18.4 - Chronic kidney disease, stage 4 (severe) Status: Acute Assessment and Plan: Followed by Nephrology. (3) Atrial fibrillation: Code(s): I48.91 - Unspecified atrial fibrillation Status: Acute Assessment and Plan: Continue Eliquis for anticoagulation at 2.5 mg p.o. b.i.d. (4) Essential hypertension: Code(s): I10 - Essential (primary) hypertension Status: Acute Assessment and Plan: At goal Subjective Date/time seen: 12/17/23 08:55 Interval history: E 8-year-old Pleasant gentleman here with complaints of lower extremity swelling and abdominal swelling. In addition to this he reports he has been having some shortness of breath with exertion. He denies fever, chills, chest pain, nausea, vomiting, abdominal pain, or constipation. Date of service 12/17/2023: Less swollen today. No chest pain or shortness of breath Review of Systems Constitutional: Constitutional: Reports lethargy Eyes: Eyes: Reports no additional eye complaints ENT: Reports system reviewed and no additional complaints, except as documented Cardiovascular: Cardiovascular: Reports leg edema and Reports dyspnea on exertion Respiratory: Respiratory: Reports dyspnea on exertion Gastrointestinal: Gastrointestinal: Reports no additional gastrointestinal complaints Musculoskeletal: Musculoskeletal: Reports no additional musculoskeletal complaints Neurologic: Reports system reviewed and no additional complaints, except as documented Endocrine: Endocrine: Reports no additional endocrine complaints Hematologic/Lymphatic: Hematologic/Lymphatic: Reports no additional hematologic/lymphatic complaints Allergic/Immunologic: Allergic/Immunologic: Reports no additional allergic/immunologic complaints Exam Const: General: comfortable and no acute distress HENMT: Mouth: Yes moist mucous membranes Eyes: Sclera: sclerae normal Neck: Neck: supple Other: Patient has jugular venous distention to the angle of the jaw Resp: Effort & Inspection: normal respiratory effort Auscultation: clear to auscultation bilaterally Cardio: Rate: regular rate Other: Very soft apical systolic murmur no gallop GI: Auscultation: normal bowel sounds Skin: General skin exam: normal color Neuro: Other: Alert and oriented x3 Extrem: Other: Chronic tense pitting edema up to the thighs bilateral Psych: Affect: normal affect Objective Data Vital Signs Vital Signs: Vital Signs - 24 hr 12/16/23 12:01 12/16/23 12:00 12/16/23 16:03 Temperature 36.4 C Pulse Rate 70 66 69 Respiratory Rate 17 Blood Pressure 120/68 Pulse Oximetry 97 Oxygen Delivery 12/16/23 16:00 12/16/23 20:00 12/17/23 00:00 Temperature 36.4 C 36.8 C 36.7 C Pulse Rate 78 69 69 Respiratory Rate 18 18 18 Blood Pressure 122/70 122/71 138/77 Pulse Oximetry 97 99 96 Oxygen Delivery 12/16/23 21:17 12/16/23 20:00 12/17/23 00:04 Temperature Pulse Rate 65 70 Respiratory Rate Blood Pressure Pulse Oximetry 96 Oxygen Delivery Room Air 12/17/23 04:00 12/17/23 05:59 12/17/23 04:00 Temperature 36.7 C 36.5 C Pulse Rate 69 70 92 Respiratory Rate 18 18 Blood Pressure 140/83 162/77 H Pulse Oximetry 97 98 Oxygen Delivery 12/17/23 07:55 12/17/23 08:00 Temperature 36.3 C L Pulse Rate 69 Respiratory Rate 12 Blood Pressure 144/83 H Pulse Oximetry 96 Oxygen Delivery Room Air Intake/Output Intake/Output: Intake & Output 12/14/23 12/15/23 12/16/23 12/17/23 23:59 23:59 23:59 23:59 Intake Total 50 980 120 Output Total 700 5820 2734 [id number] Meds/Results Medications: Active Medications Generic Name Dose Route Start Last Admin Trade Name Freq PRN Reason Stop Dose Admin Apixaban 2.5 mg 12/15/23 21:00 12/17/23 08:52 Apixaban 2.5 Mg Tablet PO 2.5 mg Q12HR AMOR Administration Aspirin 81 mg 12/16/23 09:00 12/17/23 08:53 Aspirin 81 Mg Enteric Tablet PO 81 mg DAILY AMOR Administration Bumetanide 1 mg 12/16/23 17:00 12/17/23 08:52 Bumetanide Inj 1 Mg/4 Ml Vial IV PUSH 1 mg BID AMOR Administration Ferrous Sulfate 325 mg 12/16/23 17:00 12/17/23 08:53 Ferrous Sulfate [address] PO 325 mg BID AMOR Administration Hydralazine HCl 10 mg 12/16/23 13:00 12/17/23 08:53 Hydralazine 10 Mg Tablet PO 10 mg TID AMOR Administration Ceftriaxone Sodium 1 gm in 50 mls @ 100 mls/hr 12/16/23 08:15 12/17/23 08:51 Rocephin 1 Gm/Ns 50 Ml IVPB 100 mls/hr Q24H AMOR Administration Isosorbide Mononitrate 30 mg 12/17/23 09:00 12/17/23 08:52 Isosorbide Mononitrate 30 Mg Tab.Er.24h PO 30 mg DAILY AMOR Administration Losartan Potassium 100 mg 12/16/23 11:00 12/16/23 12:27 Losartan Potassium 100 Mg Tablet PO 100 mg DAILY AMOR Administration Metolazone 2.5 mg 12/17/23 09:00 Metolazone 2.5 Mg Tablet PO 12/17/23 09:01 ONCE ONE Multivitamins Therapeutic 1 tablet 12/16/23 09:00 12/17/23 08:53 Multivitamins Therapeutic Tab (*Bkc) PO 1 tablet DAILY AMOR Administration Perflutren Lipid Microsphere 0 ml 12/15/23 20:34 Perflutren Lipid Microspheres 1.5 Ml Vial Diluted To 10 Ml Total Volume IV PUSH 12/18/23 20:35 ONCE PRN adequate visualization Protocol Potassium Chloride 40 meq 12/17/23 09:00 12/17/23 08:52 Potassium Chloride 20 Meq Packet (For Liquid) PO 12/18/23 10:00 40 meq BID AMOR Administration Pravastatin Sodium 80 mg 12/16/23 21:00 12/16/23 21:17 Pravastatin Sodium 20 Mg Tablet PO 80 mg HS AMOR Administration Senna/Docusate Sodium 1 tab 12/16/23 21:00 12/16/23 21:17 Senna/Docusate Sodium Tablet PO 1 tab HS AMOR Administration Radiology Results: ITS Impressions Chest X-Ray 12/15/23 14:33 IMPRESSION: Cardiomegaly with cardiac decompensation and pulmonary edema. Pneumonitis is not excluded. Bilateral minimal pleural effusion with adjacent atelectasis. Abdomen/Pelvis CT 12/15/23 16:22 IMPRESSION: 1. Bilateral pleural effusion with adjacent atelectasis. 2. Minimal pericardial effusion. Minimal cardiomegaly. 3. Ascites. 4. Thickened wall of the gallbladder. Acalculous cholecystitis cannot be excluded. 5. Medial condyle with slight fullness of the left renal pelvis and ureter. 6. Slightly dilated small bowel loops in the pelvis. Early obstruction cannot be excluded. Follow-up advised. 7. Right inguinal hernia with fluid content. Venous Doppler Study 12/16/23 14:43 IMPRESSION: Negative bilateral lower extremity venous US. No deep vein thrombosis. Labs Labs: Laboratory Results - last 24 hr 12/16/23 12/16/23 12/16/23 05:22 05:23 11:27 WBC RBC Hgb Hct MCV MCH MCHC RDW Plt Count MPV Immature Gran % (Auto) Neut % (Auto) Lymph % (Auto) [place] % (Auto) Eos % (Auto) Baso % (Auto) Lymph # (Auto) [place] # (Auto) Eos # (Auto) Baso # (Auto) Abs Immat Gran (auto) Absolute Neuts (auto) Absolute Nucleated RBC Nucleated RBC % Sodium Potassium Chloride Carbon Dioxide Anion Gap BUN Creatinine Estim Creat Clear Calc Estimated GFR Glucose Calcium Phosphorus 4.9 H Magnesium 2.1 Iron 40 L TIBC 284 % Saturation 14 L Total Bilirubin AST ALT Alkaline Phosphatase Total Protein Albumin Vitamin B12 > 1000.0 H Folate > 20.0 H Total T3 0.82 L Ur Random Sodium 75 12/17/23 04:56 WBC 6.0 RBC 3.53 L Hgb 11.9 L Hct 34.4 L MCV 97.5 MCH 33.7 MCHC 34.6 RDW 12.7 Plt Count 185 MPV 10.5 H Immature Gran % (Auto) 0.3 Neut % (Auto) 70.8 Lymph % (Auto) 15.6 L [place] % (Auto) 10.3 H Eos % (Auto) 2.2 Baso % (Auto) 0.8 Lymph # (Auto) 0.94 [place] # (Auto) 0.6 Eos # (Auto) 0.1 Baso # (Auto) 0.1 Abs Immat Gran (auto) 0.02 Absolute Neuts (auto) 4.3 Absolute Nucleated RBC 0.000 Nucleated RBC % 0.0 Sodium 128 L Potassium 3.2 L Chloride 96 L Carbon Dioxide 21 L Anion Gap 11 BUN 31 H Creatinine 2.10 H Estim Creat Clear Calc 27 Estimated GFR 30 L Glucose 107 Calcium 9.0 Phosphorus Magnesium Iron TIBC % Saturation Total Bilirubin 0.8 AST 34 ALT 27 Alkaline Phosphatase 38 Total Protein 7.0 Albumin 3.9 Vitamin B12 Folate Total T3 Ur Random Sodium
[2023-12-17] MEDS: metOLazone 2.5 MG TABLET PO (08:57)
[2023-12-17 09:41] LABS: Phosphorus 4.9 mg/dL (2.5-4.5)
--- NOTE | 2023-12-17 11:35 | P.PNNP_ITS ---
Progress Note: A&P Assessment and Plan (1) Chronic kidney disease, stage 4 (severe): Code(s): N18.4 - Chronic kidney disease, stage 4 (severe) Status: Chronic Assessment and Plan: * baseline creatinine runs ~ 2.0 - 2.2mg/dl * due to long standing hypertension along with age-related change based on outpatient evaluation * follows with Dr. Marx for management of his CKD (2) CHF exacerbation: Code(s): I50.9 - Heart failure, unspecified Status: Acute Assessment and Plan: * as noted by symptoms/findings on admission * not requiring supplemental oxygen * on diuretic therapy * follow daily weights, I/Os, and fluid status * follow clinical symptoms (3) UTI (urinary tract infection): Code(s): N39.0 - Urinary tract infection, site not specified Status: Acute Assessment and Plan: * admission UA suggestive * follow urine culture * on antibiotics (4) Hyponatremia: Code(s): E87.1 - Hypo-osmolality and hyponatremia Status: Chronic Assessment and Plan: * chronic issue at baseline * maybe partly related to #2 * follow trend with treatment of volume overload * add fluid restriction Will continue to follow. Subjective Date/time seen: 12/17/23 11:35 Interval history: Follow-up for chronic kidney disease and volume overload/LE edema. Good diuresis noted in the last 24 hours but still complaining of lower extremity edema although seems a bit less swollen in general; Echo being done at the time of my visit; no acute distress voiced when seen. Exam Narrative: General: elderly but WD/WN male in NAD Heart: normal S1 and S2; no rub Lungs: decreased at bases Abdomen: soft, nontender, distension noted, positive bowel sounds Extremities: no cyanosis or clubbing; 2+ edema Skin: warm and dry Objective Data Vital Signs Vital Signs: Vital Signs Temp Pulse Resp BP Pulse Ox O2 Del Method FiO2 12/17/23 11:00 96.7 F L 70 16 139/67 98 12/17/23 08:55 Room Air 12/17/23 08:00 76 12/17/23 09:18 96 Room Air 21 12/17/23 08:00 97.4 F L 69 12 144/83 H 96 12/17/23 07:55 Room Air 12/17/23 04:00 92 12/17/23 05:59 97.7 F 70 18 162/77 H 98 12/17/23 04:00 98.0 F 69 18 140/83 97 12/17/23 00:04 70 12/16/23 20:00 65 12/16/23 21:17 96 Room Air 12/17/23 00:00 98.0 F 69 18 138/77 96 12/16/23 20:00 98.2 F 69 18 122/71 99 Intake/Output Intake/Output: Intake & Output 12/14/23 12/15/23 12/16/23 12/17/23 23:59 23:59 23:59 23:59 Intake Total 50 980 240 Output Total 700 0872 0608 Bbjcrxo -[id number] [phone] -9316 Meds/Results Medications: Active Medications Generic Name Dose Route Start Last Admin Trade Name Freq PRN Reason Stop Dose Admin Apixaban 2.5 mg 12/15/23 21:00 12/17/23 08:52 Apixaban 2.5 Mg Tablet PO 2.5 mg Q12HR AMOR Administration Aspirin 81 mg 12/16/23 09:00 12/17/23 08:53 Aspirin 81 Mg Enteric Tablet PO 81 mg DAILY AMOR Administration Bumetanide 1 mg 12/16/23 17:00 12/17/23 17:45 Bumetanide Inj 1 Mg/4 Ml Vial IV PUSH 1 mg BID AMOR Administration Cefdinir 300 mg 12/18/23 09:00 Cefdinir 300 Mg Capsule PO 12/20/23 21:00 DAILY AMOR Ferrous Sulfate 325 mg 12/16/23 17:00 12/17/23 17:45 Ferrous Sulfate [address] PO 325 mg BID AMOR Administration Hydralazine HCl 10 mg 12/16/23 13:00 12/17/23 17:44 Hydralazine 10 Mg Tablet PO 10 mg TID AMOR Administration Isosorbide Mononitrate 30 mg 12/17/23 09:00 12/17/23 08:52 Isosorbide Mononitrate 30 Mg Tab.Er.24h PO 30 mg DAILY AMOR Administration Losartan Potassium 100 mg 12/16/23 11:00 12/16/23 12:27 Losartan Potassium 100 Mg Tablet PO 100 mg DAILY AMOR Administration Multivitamins Therapeutic 1 tablet 12/16/23 09:00 12/17/23 08:53 Multivitamins Therapeutic Tab (*Bkc) PO 1 tablet DAILY AMOR Administration Perflutren Lipid Microsphere 0 ml 12/15/23 20:34 Perflutren Lipid Microspheres 1.5 Ml Vial Diluted To 10 Ml Total Volume IV PUSH 12/18/23 20:35 ONCE PRN adequate visualization Protocol Potassium Chloride 40 meq 12/17/23 09:00 12/17/23 17:44 Potassium Chloride 20 Meq Packet (For Liquid) PO 12/18/23 10:00 40 meq BID AMOR Administration Pravastatin Sodium 80 mg 12/16/23 21:00 12/16/23 21:17 Pravastatin Sodium 20 Mg Tablet PO 80 mg HS AMOR Administration Senna/Docusate Sodium 1 tab 12/16/23 21:00 12/16/23 21:17 Senna/Docusate Sodium Tablet PO 1 tab HS AMOR Administration Radiology Results: ITS Impressions Abdomen/Pelvis CT 12/15/23 16:22 IMPRESSION: 1. Bilateral pleural effusion with adjacent atelectasis. 2. Minimal pericardial effusion. Minimal cardiomegaly. 3. Ascites. 4. Thickened wall of the gallbladder. Acalculous cholecystitis cannot be excluded. 5. Medial condyle with slight fullness of the left renal pelvis and ureter. 6. Slightly dilated small bowel loops in the pelvis. Early obstruction cannot be excluded. Follow-up advised. 7. Right inguinal hernia with fluid content. Venous Doppler Study 12/16/23 14:43 IMPRESSION: Negative bilateral lower extremity venous US. No deep vein thrombosis. Chest X-Ray 12/17/23 09:45 Impression: Small bilateral pleural effusions. Labs Labs: Laboratory Tests 12/17/23 04:56 12/17/23 04:56 Calcium 9.0 Phosphorus 4.9 H Magnesium 2.0 Total Bilirubin 0.8 AST 34 ALT 27 Alkaline Phosphatase 38 Total Protein 7.0 Albumin 3.9 Microbiology 12/15/23 15:02 Urine Clean Catch Urine Culture - Final Klebsiella pneumoniae
[2023-12-17] MEDS: BISACODYL 10 MG SUPPOSITORY RECTAL (17:45)
[2023-12-17] MEDS: PRAVASTATIN SODIUM 20 MG TABLET 80 MG PO (21:11)
[2023-12-17] MEDS: SENNA/DOCUSATE SODIUM TABLET 1 TAB PO (21:12)
[2023-12-18] VITALS (12 sets, daily range): BP systolic 123–145; BP diastolic 66–79; PULSE 68–71; RESP 16–18; TEMP 36–36.9; O2SAT 95–99
[2023-12-18 05:00] LABS: Basophils Absolute Auto 0.1 K/mm3 (0.0-0.1); Basophils Percent Auto 1.1 % (0.2-1.2); Eosinophils Absolute Auto 0.2 K/mm3 (0-0.3); Eosinophils Percent Auto 3.2 % (0-4.4); Hematocrit 34.6 % (42.0-52.0); Hemoglobin 11.6 g/dL (14.0-18.0); Immature Granulocyte Absolute 0.02 K/mm3 (0.00-0.031); Immature Granulocyte Percent A 0.3 % (0-0.5); Lymphocytes Absolute Auto 1.04 K/mm3 (0.9-3.2); Lymphocytes Percent Auto 16.7 % (18.3-44.2); Mean Corpuscular HGB Conc 33.5 g/dl (32-36); Mean Corpuscular Hemoglobin 32.6 pg (26-34); Mean Corpuscular Volume 97.2 fl (80-100); Mean Platelet Volume 10.2 fl (7.4-10.4); Monocytes Absolute Auto 0.6 K/mm3 (0.1-0.6); Neutrophils Absolute Auto 4.3 K/mm3 (1.3-6.7); Neutrophils Percent Auto 68.7 % (45.5-73.1); Platelet Count Result 207 k/mm3 (150-375); Red Blood Count 3.56 M/mm3 (4.6-6.20); Red Cell Distribution Width 12.6 % (11.5-14.5); White Blood Count 6.2 K/mm3 (4.5-10.0)
[2023-12-18 05:21] LABS: Magnesium 1.9 mg/dL (1.6-2.3); Phosphorus 4.9 mg/dL (2.5-4.5)
[2023-12-18 05:22] LABS: Alanine Aminotransferase 29 U/L (6-50); Albumin Level 3.8 g/dL (3.5-5.1); Alkaline Phosphatase 29 U/L (38-126); Anion Gap 11 mmol/L (4-12); Aspartate Amino Transferase 34 U/L (17-59); Bilirubin,Total 0.9 mg/dL (0.2-1.3); Blood Urea Nitrogen 31 mg/dL (9-20); Carbon Dioxide 24 mmol/L (22-30); Chloride 95 mmol/L (98-107); Estimated CRCL calculation 28 ml/min; Estimated Glomerular Filt Rate 32; Glucose 98 mg/dL (65-110); Potassium 3.3 mmol/L (3.4-5.0); Sodium 130 mmol/L (137-145)
--- NOTE | 2023-12-18 08:50 | P.PNIM_ITS ---
Progress Note: A&P Assessment and Plan (1) CHF exacerbation: Code(s): I50.9 - Heart failure, unspecified Status: Acute Assessment and Plan: Patient presented with complaints of shortness of breath and increased lower extremity edema and abdominal distention. BNP 22,000 on admission. Chest x-ray shows cardiomegaly with cardiac decompensation and pulmonary edema and bilateral pleural effusion with ascites. He received IV Lasix 80 mg in the ED. Currently not requiring oxygen. * Received IV Lasix 80 mg today. Cardiology recommends diuresis with Bumex 1 mg BID. Nephrology added metolazone 2.5 mg PO once. * BNP elevated. No ECHO on file, ECHO ordered for today. Review of nephrology clinic notes state LVH EF 44% and aortic sclerosis from ECHO in 2019. * ECHO this admission global systolic function EF approximately 40%, biatrial dilation. * strict I&O, daily weights * Weight from 08/2023 93.44 Kg, weight this admission is 106.3 kg * 102.5 kg today, down 8lbs over 24 hours * Low sodium diet, fluid restriction of 1200 ml * Repeat x-ray shows minimal pleural effusion * Venous duplex was negative for DVT * thigh high DWAIN hose ordered, SCD ordered * Continue Eliquis 2.5 mg PO BID * Cardiology would like to continue with IV diuresis today (2) UTI (urinary tract infection): Code(s): N39.0 - Urinary tract infection, site not specified Status: Acute Assessment and Plan: UA concerning of infection. cloudy colored urine with positive nitrates, 3+ leukocytes, pyuria, and 4+ bacteria. Normal WBC with elevated neutrophils. Patient has urostomy. * Urine culture is growing gram negative bacilli * He was started on Rocephin * Urine culture grew klebsiella. He had complaints of abdominal pain, cloudy urine, and weakness. There is a chance this is colonization as it is unclear if the urine sample was obtained from a clean urostomy bag. Given non-specific symptoms and age will finish a 5 day course with cefdinir renally dosed. (3) Chronic kidney disease, stage 4 (severe): Code(s): N18.4 - Chronic kidney disease, stage 4 (severe) Status: Acute Assessment and Plan: Creatinine seems to be at baseline 2.10 with GFR 30. Potassium 4.0, phosphorus pending * Diuresis with assistance of nephrology, cardiology. Rec's appreciated * Currently receiving Bumex 1 mg IVP BID and metolazone 2.5 mg PO one time * Urostomy to Blake bag, strict I&O * Urine output for the last 24 hours was 3.9 L, 0.65 ml/kg/hr. Net negative 7730 ml for this admission (4) Diarrhea: Code(s): R19.7 - Diarrhea, unspecified Status: Acute Assessment and Plan: Patient reports watery stool of the last few days. Today stool is semi formed and he is passing flatus. CT abdomen and pelvis showed mildly dilated loops of small bowel. He denies abdominal pain, nausea, vomiting. His abdomen is distended with tinkling bowel sounds. 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 Sodium on admission was 123. Sodium 135 from 09/10/23. He feels weak. * Improving with diuresis * Fluid restriction 1.2 L * Nephrology is following Plan Requested CT abdomen and pelvis imaging to be faxed to his Urologist Dr Martinez Subjective Date/time seen: 12/18/23 08:50 Interval history: No acute events overnight. He is up walking in the [place] with therapy when I 1st see him. He is moving around well and has less swelling in his legs. He still feels like his abdomen is distended. He has no shortness of breath or chest pain. Review of Systems Review of Systems: All systems reviewed & are unremarkable except as noted in HPI and below Exam Narrative: General: appears comfortable, in no acute distress Respiratory: breathing is unlabored with even chest rise/fall, lungs are diminished, no crackles appreciated today Cardiovascular: Rate and rhythm regular, normal s1s2, no murmur Abdomen: distended, soft, active bowel sounds, non-tender, active bowel sounds. Urostomy present with clear yellow urine. Extremities: No cyanosis. Bilateral lower extremity edema with right greater than left, +2 pitting to bilateral lower legs. Edema is improving. Neuro: A&O x 4, pleasant, good insight and judgement Skin: Warm, dry, intact Objective Data Vital Signs Vital Signs: Vital Signs - 24 hr 12/17/23 09:18 12/17/23 08:55 12/17/23 12:00 Temperature 96.7 F L Pulse Rate 70 Respiratory Rate 16 Blood Pressure 139/67 Pulse Oximetry 96 98 Oxygen Delivery Room Air Room Air Fraction of Inspired Oxygen 21 12/17/23 12:00 12/17/23 16:00 12/17/23 16:00 Temperature 97.2 F L Pulse Rate 72 71 69 Respiratory Rate 16 Blood Pressure 132/74 Pulse Oximetry 99 Oxygen Delivery Fraction of Inspired Oxygen 12/17/23 19:59 12/18/23 00:00 12/17/23 21:13 Temperature 96.9 F L 96.8 F L Pulse Rate 69 68 Respiratory Rate 22 H 18 Blood Pressure 121/69 128/66 Pulse Oximetry 98 96 96 Oxygen Delivery Room Air Fraction of Inspired Oxygen 12/17/23 20:00 12/18/23 00:05 12/18/23 04:00 Temperature 97.0 F L Pulse Rate 71 69 71 Respiratory Rate 18 Blood Pressure 142/70 H Pulse Oximetry 95 Oxygen Delivery Fraction of Inspired Oxygen 12/18/23 04:01 Temperature Pulse Rate 69 Respiratory Rate Blood Pressure Pulse Oximetry Oxygen Delivery Fraction of Inspired Oxygen Intake/Output Intake/Output: Intake & Output 12/15/23 12/16/23 12/17/23 12/18/23 23:59 23:59 23:59 23:59 Intake Total 50 980 530 390 Output Total 700 7363 2475 7443 [facility] -[phone] Meds/Results Medications: Active Medications Generic Name Dose Route Start Last Admin Trade Name Freq PRN Reason Stop Dose Admin Apixaban 2.5 mg 12/15/23 21:00 12/17/23 21:12 Apixaban 2.5 Mg Tablet PO 2.5 mg Q12HR AMOR Administration Aspirin 81 mg 12/16/23 09:00 12/17/23 08:53 Aspirin 81 Mg Enteric Tablet PO 81 mg DAILY AMOR Administration Bumetanide 1 mg 12/16/23 17:00 12/17/23 17:45 Bumetanide Inj 1 Mg/4 Ml Vial IV PUSH 1 mg BID AMOR Administration Cefdinir 300 mg 12/18/23 09:00 Cefdinir 300 Mg Capsule PO 12/20/23 21:00 DAILY AMOR Ferrous Sulfate 325 mg 12/16/23 17:00 12/17/23 17:45 Ferrous Sulfate [address] PO 325 mg BID AMOR Administration Hydralazine HCl 10 mg 12/16/23 13:00 12/17/23 17:44 Hydralazine 10 Mg Tablet PO 10 mg TID AMOR Administration Isosorbide Mononitrate 30 mg 12/17/23 09:00 12/17/23 08:52 Isosorbide Mononitrate 30 Mg Tab.Er.24h PO 30 mg DAILY AMOR Administration Losartan Potassium 100 mg 12/16/23 11:00 12/16/23 12:27 Losartan Potassium 100 Mg Tablet PO 100 mg DAILY AMOR Administration Metolazone 2.5 mg 12/18/23 09:00 Metolazone 2.5 Mg Tablet PO 12/18/23 09:01 ONCE ONE Multivitamins Therapeutic 1 tablet 12/16/23 09:00 12/17/23 08:53 Multivitamins Therapeutic Tab (*Bkc) PO 1 tablet DAILY AMOR Administration Perflutren Lipid Microsphere 0 ml 12/15/23 20:34 Perflutren Lipid Microspheres 1.5 Ml Vial Diluted To 10 Ml Total Volume IV PUSH 12/18/23 20:35 ONCE PRN adequate visualization Protocol Potassium Chloride 40 meq 12/17/23 09:00 12/17/23 17:44 Potassium Chloride 20 Meq Packet (For Liquid) PO 12/18/23 10:00 40 meq BID AMOR Administration Potassium Chloride 40 meq 12/18/23 09:00 Potassium Chloride 20 Meq Packet (For Liquid) PO 12/18/23 09:01 ONCE ONE Pravastatin Sodium 80 mg 12/16/23 21:00 12/17/23 21:11 Pravastatin Sodium 20 Mg Tablet PO 80 mg HS AMOR Administration Senna/Docusate Sodium 1 tab 12/16/23 21:00 12/17/23 21:12 Senna/Docusate Sodium Tablet PO 1 tab HS AMOR Administration Radiology Results: ITS Impressions Abdomen/Pelvis CT 12/15/23 16:22 IMPRESSION: 1. Bilateral pleural effusion with adjacent atelectasis. 2. Minimal pericardial effusion. Minimal cardiomegaly. 3. Ascites. 4. Thickened wall of the gallbladder. Acalculous cholecystitis cannot be excluded. 5. Medial condyle with slight fullness of the left renal pelvis and ureter. 6. Slightly dilated small bowel loops in the pelvis. Early obstruction cannot be excluded. Follow-up advised. 7. Right inguinal hernia with fluid content. Venous Doppler Study 12/16/23 14:43 IMPRESSION: Negative bilateral lower extremity venous US. No deep vein thrombosis. Chest X-Ray 12/17/23 09:45 Impression: Small bilateral pleural effusions. Labs Labs: Laboratory Results - last 24 hr 12/17/23 12/18/23 04:56 04:29 WBC 6.2 RBC 3.56 L Hgb 11.6 L Hct 34.6 L MCV 97.2 MCH 32.6 MCHC 33.5 RDW 12.6 Plt Count 207 MPV 10.2 Immature Gran % (Auto) 0.3 Neut % (Auto) 68.7 Lymph % (Auto) 16.7 L [place] % (Auto) 10.0 H Eos % (Auto) 3.2 Baso % (Auto) 1.1 Lymph # (Auto) 1.04 [place] # (Auto) 0.6 Eos # (Auto) 0.2 Baso # (Auto) 0.1 Abs Immat Gran (auto) 0.02 Absolute Neuts (auto) 4.3 Absolute Nucleated RBC 0.000 Nucleated RBC % 0.0 Sodium 130 L Potassium 3.3 L Chloride 95 L Carbon Dioxide 24 Anion Gap 11 BUN 31 H Creatinine 2.00 H Estim Creat Clear Calc 28 Estimated GFR 32 L Glucose 98 Calcium 9.0 Phosphorus 4.9 H 4.9 H Magnesium 2.0 1.9 Total Bilirubin 0.9 AST 34 ALT 29 Alkaline Phosphatase 29 L Total Protein 7.0 Albumin 3.8 Quality VTE Prophylaxis VTE prophylaxis: pharmacologic ordered
[2023-12-18] MEDS: FERROUS SULFATE 325 MG TABLET DR PO ×2 (09:03→17:54)
[2023-12-18] MEDS: ASPIRIN 81 MG ENTERIC TABLET PO (09:03)
[2023-12-18] MEDS: hydrALAZINE 10 MG TABLET PO ×3 (09:03→17:54)
[2023-12-18] MEDS: APIXABAN 2.5 MG TABLET PO ×2 (09:03→21:21)
[2023-12-18] MEDS: ISOSORBIDE MONONITRATE 30 MG TAB.ER.24H PO (09:03)
[2023-12-18] MEDS: metOLazone 2.5 MG TABLET PO (09:04)
[2023-12-18] MEDS: POTASSIUM CHLORIDE 20 MEQ PACKET (FOR LIQUID) 40 MEQ PO (09:04)
[2023-12-18] MEDS: CEFDINIR 300 MG CAPSULE PO (09:04)
[2023-12-18] MEDS: MULTIVITAMINS THERAPEUTIC TAB (*BKC) 1 TABLET PO (09:04)
--- NOTE | 2023-12-18 09:16 | PM.PNCARD ---
Progress Note: A&P Assessment and Plan (1) Anasarca: Code(s): R60.1 - Generalized edema Status: Acute Assessment and Plan: Improving with IV Bumex. Continue with IV diuresis today. Echo showed mild LV dysfunction with EF 40%. Medical therapy limited by renal function. Continue with losartan for now. Consider adding jardiance (2) Chronic kidney disease, stage 4 (severe): Code(s): N18.4 - Chronic kidney disease, stage 4 (severe) Status: Acute Assessment and Plan: Followed by Nephrology. (3) Atrial fibrillation: Code(s): I48.91 - Unspecified atrial fibrillation Status: Acute Assessment and Plan: Continue Eliquis for anticoagulation at 2.5 mg p.o. b.i.d. (4) Essential hypertension: Code(s): I10 - Essential (primary) hypertension Status: Acute Assessment and Plan: At goal Subjective Date/time seen: 12/18/23 09:16 Interval history: E 8-year-old Pleasant gentleman here with complaints of lower extremity swelling and abdominal swelling. In addition to this he reports he has been having some shortness of breath with exertion. He denies fever, chills, chest pain, nausea, vomiting, abdominal pain, or constipation. Date of service 12/17/2023: Less swollen today. No chest pain or shortness of breath Date of service 12/18/2023: Swelling continues to improve. He denies shortness of breath. No chest pain. Review of Systems Constitutional: Constitutional: Reports lethargy Eyes: Eyes: Reports no additional eye complaints ENT: Reports system reviewed and no additional complaints, except as documented Cardiovascular: Cardiovascular: Reports leg edema and Reports dyspnea on exertion Respiratory: Respiratory: Reports dyspnea on exertion Gastrointestinal: Gastrointestinal: Reports no additional gastrointestinal complaints Musculoskeletal: Musculoskeletal: Reports no additional musculoskeletal complaints Neurologic: Reports system reviewed and no additional complaints, except as documented Endocrine: Endocrine: Reports no additional endocrine complaints Hematologic/Lymphatic: Hematologic/Lymphatic: Reports no additional hematologic/lymphatic complaints Allergic/Immunologic: Allergic/Immunologic: Reports no additional allergic/immunologic complaints Exam Const: General: comfortable and no acute distress HENMT: Mouth: Yes moist mucous membranes Eyes: Sclera: sclerae normal Neck: Neck: supple Other: Patient has jugular venous distention to the angle of the jaw Resp: Effort & Inspection: normal respiratory effort Auscultation: clear to auscultation bilaterally Cardio: Rate: regular rate Rhythm: regular rhythm Other: Very soft apical systolic murmur no gallop GI: Auscultation: normal bowel sounds Skin: General skin exam: normal color Neuro: Other: Alert and oriented x3 Extrem: General: edema Psych: Affect: normal affect Objective Data Vital Signs Vital Signs: Vital Signs - 24 hr 12/17/23 09:18 12/17/23 12:00 12/17/23 12:00 Temperature 35.9 C L Pulse Rate 70 72 Respiratory Rate 16 Blood Pressure 139/67 Pulse Oximetry 96 98 Oxygen Delivery Room Air Fraction of Inspired Oxygen 21 12/17/23 16:00 12/17/23 16:00 12/17/23 19:59 Temperature 36.2 C L 36.1 C L Pulse Rate 71 69 69 Respiratory Rate 16 22 H Blood Pressure 132/74 121/69 Pulse Oximetry 99 98 Oxygen Delivery Fraction of Inspired Oxygen 12/18/23 00:00 12/17/23 21:13 12/17/23 20:00 Temperature 36.0 C L Pulse Rate 68 71 Respiratory Rate 18 Blood Pressure 128/66 Pulse Oximetry 96 96 Oxygen Delivery Room Air Fraction of Inspired Oxygen 12/18/23 00:05 12/18/23 04:00 12/18/23 04:01 Temperature 36.1 C L Pulse Rate 69 71 69 Respiratory Rate 18 Blood Pressure 142/70 H Pulse Oximetry 95 Oxygen Delivery Fraction of Inspired Oxygen 12/18/23 08:00 Temperature 36.2 C L Pulse Rate 69 Respiratory Rate 16 Blood Pressure 145/79 H Pulse Oximetry 97 Oxygen Delivery Fraction of Inspired Oxygen Intake/Output Intake/Output: Intake & Output 12/15/23 12/16/23 12/17/23 12/18/23 23:59 23:59 23:59 23:59 Intake Total 50 980 530 390 Output Total 700 9470 3389 0532 [place] -[phone] Meds/Results Medications: Active Medications Generic Name Dose Route Start Last Admin Trade Name Freq PRN Reason Stop Dose Admin Apixaban 2.5 mg 12/15/23 21:00 12/18/23 09:03 Apixaban 2.5 Mg Tablet PO 2.5 mg Q12HR AMOR Administration Aspirin 81 mg 12/16/23 09:00 12/18/23 09:03 Aspirin 81 Mg Enteric Tablet PO 81 mg DAILY AMOR Administration Bumetanide 1 mg 12/16/23 17:00 12/17/23 17:45 Bumetanide Inj 1 Mg/4 Ml Vial IV PUSH 1 mg BID AMOR Administration Cefdinir 300 mg 12/18/23 09:00 12/18/23 09:04 Cefdinir 300 Mg Capsule PO 12/20/23 21:00 300 mg DAILY AMOR Administration Ferrous Sulfate 325 mg 12/16/23 17:00 12/18/23 09:03 Ferrous Sulfate [address] PO 325 mg BID AMOR Administration Hydralazine HCl 10 mg 12/16/23 13:00 12/18/23 09:03 Hydralazine 10 Mg Tablet PO 10 mg TID AOMR Administration Isosorbide Mononitrate 30 mg 12/17/23 09:00 12/18/23 09:03 Isosorbide Mononitrate 30 Mg Tab.Er.24h PO 30 mg DAILY AMOR Administration Losartan Potassium 100 mg 12/16/23 11:00 12/16/23 12:27 Losartan Potassium 100 Mg Tablet PO 100 mg DAILY AMOR Administration Multivitamins Therapeutic 1 tablet 12/16/23 09:00 12/18/23 09:04 Multivitamins Therapeutic Tab (*Bkc) PO 1 tablet DAILY AMOR Administration Perflutren Lipid Microsphere 0 ml 12/15/23 20:34 Perflutren Lipid Microspheres 1.5 Ml Vial Diluted To 10 Ml Total Volume IV PUSH 12/18/23 20:35 ONCE PRN adequate visualization Protocol Potassium Chloride 40 meq 12/17/23 09:00 12/18/23 09:04 Potassium Chloride 20 Meq Packet (For Liquid) PO 12/18/23 10:00 40 meq BID AMOR Administration Pravastatin Sodium 80 mg 12/16/23 21:00 12/17/23 21:11 Pravastatin Sodium 20 Mg Tablet PO 80 mg HS AMOR Administration Senna/Docusate Sodium 1 tab 12/16/23 21:00 12/17/23 21:12 Senna/Docusate Sodium Tablet PO 1 tab HS AMOR Administration Radiology Results: ITS Impressions Abdomen/Pelvis CT 12/15/23 16:22 IMPRESSION: 1. Bilateral pleural effusion with adjacent atelectasis. 2. Minimal pericardial effusion. Minimal cardiomegaly. 3. Ascites. 4. Thickened wall of the gallbladder. Acalculous cholecystitis cannot be excluded. 5. Medial condyle with slight fullness of the left renal pelvis and ureter. 6. Slightly dilated small bowel loops in the pelvis. Early obstruction cannot be excluded. Follow-up advised. 7. Right inguinal hernia with fluid content. Venous Doppler Study 12/16/23 14:43 IMPRESSION: Negative bilateral lower extremity venous US. No deep vein thrombosis. Chest X-Ray 12/17/23 09:45 Impression: Small bilateral pleural effusions. Labs Labs: Laboratory Results - last 24 hr 12/17/23 12/18/23 04:56 04:29 WBC 6.2 RBC 3.56 L Hgb 11.6 L Hct 34.6 L MCV 97.2 MCH 32.6 MCHC 33.5 RDW 12.6 Plt Count 207 MPV 10.2 Immature Gran % (Auto) 0.3 Neut % (Auto) 68.7 Lymph % (Auto) 16.7 L [place] % (Auto) 10.0 H Eos % (Auto) 3.2 Baso % (Auto) 1.1 Lymph # (Auto) 1.04 [place] # (Auto) 0.6 Eos # (Auto) 0.2 Baso # (Auto) 0.1 Abs Immat Gran (auto) 0.02 Absolute Neuts (auto) 4.3 Absolute Nucleated RBC 0.000 Nucleated RBC % 0.0 Sodium 130 L Potassium 3.3 L Chloride 95 L Carbon Dioxide 24 Anion Gap 11 BUN 31 H Creatinine 2.00 H Estim Creat Clear Calc 28 Estimated GFR 32 L Glucose 98 Calcium 9.0 Phosphorus 4.9 H 4.9 H Magnesium 2.0 1.9 Total Bilirubin 0.9 AST 34 ALT 29 Alkaline Phosphatase 29 L Total Protein 7.0 Albumin 3.8 Quality VTE Prophylaxis VTE prophylaxis: pharmacologic ordered
--- NOTE | 2023-12-18 11:05 | P.PNNP_ITS ---
Progress Note: A&P Assessment and Plan (1) Chronic kidney disease, stage 4 (severe): Code(s): N18.4 - Chronic kidney disease, stage 4 (severe) Status: Chronic Assessment and Plan: * baseline creatinine runs ~ 2.0 - 2.2mg/dl * due to long standing hypertension along with age-related change based on outpatient evaluation * follows with Dr. Marx for management of his CKD (2) CHF exacerbation: Code(s): I50.9 - Heart failure, unspecified Status: Acute Assessment and Plan: * as noted by symptoms/findings on admission * Cardiology following * not requiring supplemental oxygen * on diuretic therapy * follow daily weights, I/Os, and fluid status * follow clinical symptoms (3) UTI (urinary tract infection): Code(s): N39.0 - Urinary tract infection, site not specified Status: Acute Assessment and Plan: * admission UA suggestive * follow urine culture * on antibiotics (4) Hyponatremia: Code(s): E87.1 - Hypo-osmolality and hyponatremia Status: Chronic Assessment and Plan: * chronic issue at baseline * maybe partly related to #2 * follow trend with treatment of volume overload * add fluid restriction Will continue to follow. Subjective Date/time seen: 12/18/23 11:05 Interval history: Follow-up for chronic kidney disease. Appears to be doing reasonably well -- good diuresis with IV bumex and PRN metolazone with improvement in LE swelling/edema; compression stockings in place at the time of my visit; sitting up in chair in no apparent distress; son at bedside and we discussed the situation. Exam Narrative: General: elderly but WD/WN male in NAD Heart: normal S1 and S2; no rub Lungs: decreased at bases Abdomen: soft, nontender, distension noted, positive bowel sounds Extremities: no cyanosis or clubbing; 1 - 2+ edema Skin: warm and intact Objective Data Vital Signs Vital Signs: Vital Signs Temp Pulse Resp BP Pulse Ox O2 Del Method 12/18/23 11:00 98 F 69 16 124/67 98 12/18/23 09:00 Room Air 12/18/23 08:00 97.1 F L 69 16 145/79 H 97 12/18/23 04:01 69 12/18/23 04:00 97.0 F L 71 18 142/70 H 95 12/18/23 00:05 69 12/17/23 20:00 71 12/17/23 21:13 96 Room Air 12/18/23 00:00 96.8 F L 68 18 128/66 96 12/17/23 19:59 96.9 F L 69 22 H 121/69 98 12/17/23 16:00 97.2 F L 69 16 132/74 99 12/17/23 16:00 71 Intake/Output Intake/Output: Intake & Output 12/15/23 12/16/23 12/17/23 12/18/23 23:59 23:59 23:59 23:59 Intake Total 50 980 530 610 Output Total 700 3490 7036 1600 Balance -543 -3812 -3420 -990 Meds/Results Medications: Active Medications Generic Name Dose Route Start Last Admin Trade Name Freq PRN Reason Stop Dose Admin Apixaban 2.5 mg 12/15/23 21:00 12/18/23 09:03 Apixaban 2.5 Mg Tablet PO 2.5 mg Q12HR AMOR Administration Aspirin 81 mg 12/16/23 09:00 12/18/23 09:03 Aspirin 81 Mg Enteric Tablet PO 81 mg DAILY AMOR Administration Bumetanide 1 mg 12/16/23 17:00 12/17/23 17:45 Bumetanide Inj 1 Mg/4 Ml Vial IV PUSH 1 mg BID AMOR Administration Cefdinir 300 mg 12/18/23 09:00 12/18/23 09:04 Cefdinir 300 Mg Capsule PO 12/20/23 21:00 300 mg DAILY AMOR Administration Ferrous Sulfate 325 mg 12/16/23 17:00 12/18/23 09:03 Ferrous Sulfate [address] PO 325 mg BID AMOR Administration Hydralazine HCl 10 mg 12/16/23 13:00 12/18/23 09:03 Hydralazine 10 Mg Tablet PO 10 mg TID AMOR Administration Isosorbide Mononitrate 30 mg 12/17/23 09:00 12/18/23 09:03 Isosorbide Mononitrate 30 Mg Tab.Er.24h PO 30 mg DAILY AMOR Administration Losartan Potassium 100 mg 12/16/23 11:00 12/16/23 12:27 Losartan Potassium 100 Mg Tablet PO 100 mg DAILY AMOR Administration Multivitamins Therapeutic 1 tablet 12/16/23 09:00 12/18/23 09:04 Multivitamins Therapeutic Tab (*Bkc) PO 1 tablet DAILY AMOR Administration Perflutren Lipid Microsphere 0 ml 12/15/23 20:34 Perflutren Lipid Microspheres 1.5 Ml Vial Diluted To 10 Ml Total Volume IV PUSH 12/18/23 20:35 ONCE PRN adequate visualization Protocol Pravastatin Sodium 80 mg 12/16/23 21:00 12/17/23 21:11 Pravastatin Sodium 20 Mg Tablet PO 80 mg HS AMOR Administration Senna/Docusate Sodium 1 tab 12/16/23 21:00 12/17/23 21:12 Senna/Docusate Sodium Tablet PO 1 tab HS AMOR Administration Radiology Results: ITS Impressions Abdomen/Pelvis CT 12/15/23 16:22 IMPRESSION: 1. Bilateral pleural effusion with adjacent atelectasis. 2. Minimal pericardial effusion. Minimal cardiomegaly. 3. Ascites. 4. Thickened wall of the gallbladder. Acalculous cholecystitis cannot be excluded. 5. Medial condyle with slight fullness of the left renal pelvis and ureter. 6. Slightly dilated small bowel loops in the pelvis. Early obstruction cannot be excluded. Follow-up advised. 7. Right inguinal hernia with fluid content. Venous Doppler Study 12/16/23 14:43 IMPRESSION: Negative bilateral lower extremity venous US. No deep vein thrombosis. Chest X-Ray 12/17/23 09:45 Impression: Small bilateral pleural effusions. Labs Labs: Laboratory Tests 12/18/23 04:29 12/18/23 04:29 Calcium 9.0 Phosphorus 4.9 H Magnesium 1.9 Total Bilirubin 0.9 AST 34 ALT 29 Alkaline Phosphatase 29 L Total Protein 7.0 Albumin 3.8 Microbiology 12/15/23 15:02 Urine Clean Catch Urine Culture - Final Klebsiella pneumoniae
[2023-12-18] MEDS: BUMETANIDE INJ 1 MG/4 ML VIAL IV PUSH ×2 (13:18→17:54)
--- NOTE | 2023-12-18 13:43 | PC.NURSE ---
On 12/18/23, the student, [Marilin Jaramillo], provided care and completed [facility] documentation on this patient. I have reviewed the student's documentation and agree with the findings.
[2023-12-18 16:08] LABS: Osmolality, Urine 270 mOsm/kg (50-1200)
[2023-12-18] MEDS: PRAVASTATIN SODIUM 20 MG TABLET 80 MG PO (21:21)
[2023-12-18] MEDS: SENNA/DOCUSATE SODIUM TABLET 1 TAB PO (21:21)
[2023-12-19] VITALS (10 sets, daily range): BP systolic 118–145; BP diastolic 61–81; PULSE 68–73; RESP 16–18; TEMP 35.9–36.8; O2SAT 94–98
[2023-12-19] MEDS: traZODone HCL 50 MG TABLET PO (01:37)
[2023-12-19 05:48] LABS: Basophils Absolute Auto 0.1 K/mm3 (0.0-0.1); Eosinophils Absolute Auto 0.2 K/mm3 (0-0.3); Eosinophils Percent Auto 3.9 % (0-4.4); Hematocrit 34.7 % (42.0-52.0); Hemoglobin 11.7 g/dL (14.0-18.0); Immature Granulocyte Absolute 0.02 K/mm3 (0.00-0.031); Immature Granulocyte Percent A 0.3 % (0-0.5); Lymphocytes Absolute Auto 1.07 K/mm3 (0.9-3.2); Lymphocytes Percent Auto 17.3 % (18.3-44.2); Mean Corpuscular HGB Conc 33.7 g/dl (32-36); Mean Corpuscular Hemoglobin 32.4 pg (26-34); Mean Corpuscular Volume 96.1 fl (80-100); Mean Platelet Volume 10.2 fl (7.4-10.4); Monocytes Absolute Auto 0.6 K/mm3 (0.1-0.6); Monocytes Percent Auto 9.4 % (2.6-8.5); Neutrophils Absolute Auto 4.2 K/mm3 (1.3-6.7); Neutrophils Percent Auto 68.1 % (45.5-73.1); Platelet Count Result 198 k/mm3 (150-375); Red Blood Count 3.61 M/mm3 (4.6-6.20); Red Cell Distribution Width 12.7 % (11.5-14.5); White Blood Count 6.2 K/mm3 (4.5-10.0)
[2023-12-19 06:05] LABS: Alanine Aminotransferase 30 U/L (6-50); Albumin Level 3.9 g/dL (3.5-5.1); Alkaline Phosphatase 35 U/L (38-126); Anion Gap 11 mmol/L (4-12); Aspartate Amino Transferase 37 U/L (17-59); Bilirubin,Total 0.9 mg/dL (0.2-1.3); Blood Urea Nitrogen 29 mg/dL (9-20); Calcium 9.1 mg/dL (8.4-10.2); Carbon Dioxide 26 mmol/L (22-30); Chloride 92 mmol/L (98-107); Estimated CRCL calculation 27 ml/min; Estimated Glomerular Filt Rate 30; Glucose 102 mg/dL (65-110); Magnesium 1.8 mg/dL (1.6-2.3); Phosphorus 5.1 mg/dL (2.5-4.5); Potassium 3.1 mmol/L (3.4-5.0); Sodium 129 mmol/L (137-145)
--- NOTE | 2023-12-19 08:07 | P.PNIM_ITS ---
Progress Note: A&P Assessment and Plan (1) CHF exacerbation: Code(s): I50.9 - Heart failure, unspecified Status: Acute Assessment and Plan: Patient presented with complaints of shortness of breath and increased lower extremity edema and abdominal distention. BNP 22,000 on admission. Chest x-ray shows cardiomegaly with cardiac decompensation and pulmonary edema and bilateral pleural effusion with ascites. He received IV Lasix 80 mg in the ED. Currently not requiring oxygen. * Received IV Lasix 80 mg today. Cardiology recommends diuresis with Bumex 1 mg BID. Nephrology added metolazone 2.5 mg PO once. * BNP elevated. No ECHO on file, ECHO ordered for today. Review of nephrology clinic notes state LVH EF 44% and aortic sclerosis from ECHO in 2019. * ECHO this admission global systolic function EF approximately 40%, biatrial dilation. * strict I&O, daily weights * Weight from 08/2023 93.44 Kg, weight this admission is 106.3 kg * 102.5 kg today, down 8lbs over 24 hours * Low sodium diet, fluid restriction of 1200 ml * Repeat x-ray shows minimal pleural effusion * Venous duplex was negative for DVT * thigh high DWAIN hose ordered, SCD ordered * Continue Eliquis 2.5 mg PO BID 12/19/23: * Cardiology would like to continue with IV diuresis today (2) UTI (urinary tract infection): Code(s): N39.0 - Urinary tract infection, site not specified Status: Acute Assessment and Plan: UA concerning of infection. cloudy colored urine with positive nitrates, 3+ leukocytes, pyuria, and 4+ bacteria. Normal WBC with elevated neutrophils. Patient has urostomy. * Urine culture is growing gram negative bacilli * He was started on Rocephin * Urine culture grew klebsiella. He had complaints of abdominal pain, cloudy urine, and weakness. There is a chance this is colonization as it is unclear if the urine sample was obtained from a clean urostomy bag. Given non-specific symptoms and age will finish a 5 day course with cefdinir renally dosed. (3) Chronic kidney disease, stage 4 (severe): Code(s): N18.4 - Chronic kidney disease, stage 4 (severe) Status: Acute Assessment and Plan: Creatinine seems to be at baseline 2.10 with GFR 30. Potassium 4.0, phosphorus pending * Diuresis with assistance of nephrology, cardiology. Rec's appreciated * Currently receiving Bumex 1 mg IVP BID and metolazone 2.5 mg PO one time * Urostomy to Blake bag, strict I&O * Urine output for the last 24 hours was 3.9 L, 0.65 ml/kg/hr. Net negative 7730 ml for this admission (4) Diarrhea: Code(s): R19.7 - Diarrhea, unspecified Status: Acute Assessment and Plan: Patient reports watery stool of the last few days. Today stool is semi formed and he is passing flatus. CT abdomen and pelvis showed mildly dilated loops of small bowel. He denies abdominal pain, nausea, vomiting. His abdomen is distended with tinkling bowel sounds. 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 Sodium on admission was 123. Sodium 135 from 09/10/23. He feels weak. * Improving with diuresis * Fluid restriction 1.2 L * Nephrology is following (6) Hypokalemia: Code(s): E87.6 - Hypokalemia Status: Acute Assessment and Plan: * K+ 3.1 secondary to diuretics * replenished * monitor and replenish keep K+ >4.0 Plan Code status: Full code per patient DVT prophylaxis: Eliquis Stress ulcer prophylaxis: Protonix 40 daily PT/OT notes: PT/OT: Recommend home Disposition: Patient continues admission to the medical unit for further treatment bilateral lower extremity edema currently on IV Bumex cardiology to continue diuresis and I agree as well. Patient was seen by PT/OT recommended home she patient ambulatory on home O2 and can perform his own ADLs. Time Spent With Patient Time with patient: 15 - 25 minutes Subjective Date/time seen: 12/19/23 08:07 Interval history: Patient is an 88-year-old male who continues admission for IV diuresis, BLE slowly improving and renal function stable 12/19/23: Assumed Care Patient states edema improving but having pain and irritation to his sacral area. He denies SOB or CP reports good urinary output. Review of Systems Review of Systems: All systems reviewed & are unremarkable except as noted in HPI and below Exam Narrative: General: appears comfortable, in no acute distress Respiratory: breathing is unlabored with even chest rise/fall, lungs are diminished, no crackles appreciated today Cardiovascular: Rate and rhythm regular, normal s1s2, no murmur Abdomen: distended, soft, active bowel sounds, non-tender, active bowel sounds. Urostomy present with clear yellow urine. Extremities: No cyanosis. Bilateral lower extremity edema with right greater than left, +2 pitting to bilateral lower legs. Edema is improving. Neuro: A&O x 4, pleasant, good insight and judgement Skin: Warm, dry, intact Objective Data Vital Signs Vital Signs: Vital Signs - 24 hr 12/18/23 09:00 12/18/23 11:55 12/18/23 12:00 Temperature 98 F Pulse Rate 69 71 Respiratory Rate 16 Blood Pressure 124/67 Pulse Oximetry 98 Oxygen Delivery Room Air 12/18/23 16:00 12/18/23 16:00 12/18/23 19:59 Temperature 98.3 F 98.4 F Pulse Rate 69 70 69 Respiratory Rate 16 18 Blood Pressure 123/69 125/75 Pulse Oximetry 99 97 Oxygen Delivery 12/18/23 21:21 12/19/23 00:00 12/18/23 20:01 Temperature 98.2 F Pulse Rate 69 69 Respiratory Rate 18 Blood Pressure 124/72 Pulse Oximetry 97 95 Oxygen Delivery Room Air 12/19/23 00:05 12/19/23 04:01 12/19/23 04:00 Temperature 97.8 F Pulse Rate 69 69 69 Respiratory Rate 18 Blood Pressure 145/81 H Pulse Oximetry 95 Oxygen Delivery 12/18/23 21:18 12/19/23 07:55 Temperature 96.7 F L Pulse Rate 68 Respiratory Rate 16 Blood Pressure 135/78 Pulse Oximetry 95 94 Oxygen Delivery Room Air Intake/Output Intake/Output: Intake & Output 12/16/23 12/17/23 12/18/23 12/19/23 23:59 23:59 23:59 23:59 Intake Total 260 137 1864 290 Output Total 3650 3950 2550 2250 [facility] -7390 -3420 -1460 -1960 Meds/Results Medications: Active Medications Generic Name Dose Route Start Last Admin Trade Name Freq PRN Reason Stop Dose Admin Apixaban 2.5 mg 12/15/23 21:00 12/18/23 21:21 Apixaban 2.5 Mg Tablet PO 2.5 mg Q12HR AMOR Administration Aspirin 81 mg 12/16/23 09:00 12/18/23 09:03 Aspirin 81 Mg Enteric Tablet PO 81 mg DAILY AMOR Administration Bumetanide 1 mg 12/16/23 17:00 12/18/23 17:54 Bumetanide Inj 1 Mg/4 Ml Vial IV PUSH 1 mg BID AMOR Administration Cefdinir 300 mg 12/18/23 09:00 12/18/23 09:04 Cefdinir 300 Mg Capsule PO 12/20/23 21:00 300 mg DAILY AMOR Administration Ferrous Sulfate 325 mg 12/16/23 17:00 12/18/23 17:54 Ferrous Sulfate [address] PO 325 mg BID AMOR Administration Hydralazine HCl 10 mg 12/16/23 13:00 12/18/23 17:54 Hydralazine 10 Mg Tablet PO 10 mg TID AMOR Administration Potassium Chloride 40 meq/ 520 mls @ 130 mls/hr 12/19/23 08:07 Sodium Chloride IVPB 12/19/23 12:06 ONCE ONE Isosorbide Mononitrate 30 mg 12/17/23 09:00 12/18/23 09:03 Isosorbide Mononitrate 30 Mg Tab.Er.24h PO 30 mg DAILY AMOR Administration Losartan Potassium 100 mg 12/16/23 11:00 12/16/23 12:27 Losartan Potassium 100 Mg Tablet PO 100 mg DAILY AMOR Administration Multivitamins Therapeutic 1 tablet 12/16/23 09:00 12/18/23 09:04 Multivitamins Therapeutic Tab (*Bkc) PO 1 tablet DAILY AMOR Administration Potassium Chloride 40 meq 12/19/23 08:07 Potassium Chloride 20 Meq Er Tablet PO 12/19/23 08:08 ONCE ONE Pravastatin Sodium 80 mg 12/16/23 21:00 12/18/23 21:21 Pravastatin Sodium 20 Mg Tablet PO 80 mg HS AMOR Administration Senna/Docusate Sodium 1 tab 12/16/23 21:00 12/18/23 21:21 Senna/Docusate Sodium Tablet PO 1 tab HS AMOR Administration Radiology Results: ITS Impressions Abdomen/Pelvis CT 12/15/23 16:22 IMPRESSION: 1. Bilateral pleural effusion with adjacent atelectasis. 2. Minimal pericardial effusion. Minimal cardiomegaly. 3. Ascites. 4. Thickened wall of the gallbladder. Acalculous cholecystitis cannot be excluded. 5. Medial condyle with slight fullness of the left renal pelvis and ureter. 6. Slightly dilated small bowel loops in the pelvis. Early obstruction cannot be excluded. Follow-up advised. 7. Right inguinal hernia with fluid content. Venous Doppler Study 12/16/23 14:43 IMPRESSION: Negative bilateral lower extremity venous US. No deep vein thrombosis. Chest X-Ray 12/17/23 09:45 Impression: Small bilateral pleural effusions. Labs Labs: Laboratory Results - last 24 hr 12/16/23 12/16/23 12/19/23 05:23 11:27 05:14 WBC 6.2 RBC 3.61 L Hgb 11.7 L Hct 34.7 L MCV 96.1 MCH 32.4 MCHC 33.7 RDW 12.7 Plt Count 198 MPV 10.2 Immature Gran % (Auto) 0.3 Neut % (Auto) 68.1 Lymph % (Auto) 17.3 L [place] % (Auto) 9.4 H Eos % (Auto) 3.9 Baso % (Auto) 1.0 Lymph # (Auto) 1.07 [place] # (Auto) 0.6 Eos # (Auto) 0.2 Baso # (Auto) 0.1 Abs Immat Gran (auto) 0.02 Absolute Neuts (auto) 4.2 Absolute Nucleated RBC 0.000 Nucleated RBC % 0.0 Sodium 129 L Potassium 3.1 L Chloride 92 L Carbon Dioxide 26 Anion Gap 11 BUN 29 H Creatinine 2.10 H Estim Creat Clear Calc 27 Estimated GFR 30 L Glucose 102 Serum Osmolality 270 L Calcium 9.1 Phosphorus 5.1 H Magnesium 1.8 Total Bilirubin 0.9 AST 37 ALT 30 Alkaline Phosphatase 35 L Total Protein 7.0 Albumin 3.9 Urine Osmolality 270 Quality VTE Prophylaxis VTE prophylaxis: pharmacologic ordered -Patient's previous records reviewed on admission -ER notes reviewed in detail on admission -discussed all findings and current treatment plan with patient/Family/POA -Consultations reviewed for recommendations -Patient's disposition for safe discharge discussed with therapeutic case manager Dictation performed by [employer] direct speech recognition software, therefore valuer variants and typographical errors may occur. Hospitalist MIPS Advance Care Plan I have confirmed that the patient's Advanced Care Plan is present, code status is documented, or surrogate decision maker is listed in patient medical record.: Yes Medication Reconciliation I have utilized all available resources to obtain, update and review the patients current medications (includes all prescriptions, OTC, herbals, cannabis, and nutritional supplements).: Yes The patient is not eligible for med reconciliation; the patient is in a emergent medical situation where delaying treatment would jeopardize the patients health.: No
[2023-12-19] MEDS: hydrALAZINE 10 MG TABLET PO ×3 (08:36→17:23)
[2023-12-19] MEDS: APIXABAN 2.5 MG TABLET PO ×2 (08:36→20:57)
[2023-12-19] MEDS: FERROUS SULFATE 325 MG TABLET DR PO ×2 (08:36→17:23)
[2023-12-19] MEDS: MULTIVITAMINS THERAPEUTIC TAB (*BKC) 1 TABLET PO (08:36)
[2023-12-19] MEDS: CEFDINIR 300 MG CAPSULE PO (08:36)
[2023-12-19] MEDS: ISOSORBIDE MONONITRATE 30 MG TAB.ER.24H PO (08:36)
[2023-12-19] MEDS: ASPIRIN 81 MG ENTERIC TABLET PO (08:36)
[2023-12-19] MEDS: POTASSIUM CHLORIDE 20 MEQ ER TABLET 40 MEQ PO (08:37)
[2023-12-19] MEDS: BUMETANIDE INJ 1 MG/4 ML VIAL IV PUSH ×2 (08:37→17:24)
[2023-12-19] MEDS: POTASSIUM CHLORIDE INJ 40 MEQ in SODIUM CHLORIDE 0.9% IV 500 ML 130 MEQ IVPB (08:37)
--- NOTE | 2023-12-19 09:56 | P.PNCA_ITS ---
Progress Note: A&P Assessment and Plan (1) Anasarca: Code(s): R60.1 - Generalized edema Status: Acute Assessment and Plan: Improving with IV Bumex. Continue with IV diuresis today. Echo showed mild LV dysfunction with EF 40%. Medical therapy limited by renal function. Continue with losartan for now. Consider adding jardiance. Renal function is stable with IV diuresis. No significant bump in creatinine and urine still appears to be clear. Will continue IV Bumex another 24 hours. As compared to weight from a few months ago, he is still up at least 10 lb. He is receiving potassium supplementation. Follow-up with Dr. Tolbert (2) Chronic kidney disease, stage 4 (severe): Code(s): N18.4 - Chronic kidney disease, stage 4 (severe) Status: Acute Assessment and Plan: Followed by Nephrology. (3) Atrial fibrillation: Code(s): I48.91 - Unspecified atrial fibrillation Status: Acute Assessment and Plan: Continue Eliquis for anticoagulation at 2.5 mg p.o. b.i.d. (4) Essential hypertension: Code(s): I10 - Essential (primary) hypertension Status: Acute Assessment and Plan: At goal Subjective Date/time seen: 12/19/23 09:56 Interval history: E 8-year-old Pleasant gentleman here with complaints of lower extremity swelling and abdominal swelling. In addition to this he reports he has been having some shortness of breath with exertion. He denies fever, chills, chest pain, nausea, vomiting, abdominal pain, or constipation. Date of service 12/17/2023: Less swollen today. No chest pain or shortness of breath Date of service 12/18/2023: Swelling continues to improve. He denies shortness of breath. No chest pain. Date of service 12/19/2023: Swelling has improved but still feels like his abdomen is still protuberant. No shortness of breath. No chest pain Review of Systems Constitutional: Constitutional: Reports lethargy Eyes: Eyes: Reports no additional eye complaints ENT: Reports system reviewed and no additional complaints, except as documented Cardiovascular: Cardiovascular: Reports leg edema and Reports dyspnea on exertion Respiratory: Respiratory: Reports dyspnea on exertion Gastrointestinal: Gastrointestinal: Reports no additional gastrointestinal complaints Musculoskeletal: Musculoskeletal: Reports no additional musculoskeletal complaints Neurologic: Reports system reviewed and no additional complaints, except as documented Endocrine: Endocrine: Reports no additional endocrine complaints Hematologic/Lymphatic: Hematologic/Lymphatic: Reports no additional hematologic/lymphatic complaints Allergic/Immunologic: Allergic/Immunologic: Reports no additional allergic/immunologic complaints Exam Const: General: comfortable and no acute distress HENMT: Mouth: Yes moist mucous membranes Eyes: Sclera: sclerae normal Neck: Neck: supple Other: Patient has jugular venous distention to the angle of the jaw Resp: Effort & Inspection: normal respiratory effort Auscultation: clear to auscultation bilaterally Cardio: Rate: regular rate Rhythm: regular rhythm Other: Very soft apical systolic murmur no gallop GI: Auscultation: normal bowel sounds Skin: General skin exam: normal color Neuro: Other: Alert and oriented x3 Extrem: General: edema Other: Trivial Psych: Affect: normal affect Objective Data Vital Signs Vital Signs: Vital Signs - 24 hr 12/18/23 11:55 12/18/23 12:00 12/18/23 16:00 Temperature 36.6 C Pulse Rate 69 71 69 Respiratory Rate 16 Blood Pressure 124/67 Pulse Oximetry 98 Oxygen Delivery 12/18/23 16:00 12/18/23 19:59 12/18/23 21:21 Temperature 36.8 C 36.9 C Pulse Rate 70 69 Respiratory Rate 16 18 Blood Pressure 123/69 125/75 Pulse Oximetry 99 97 97 Oxygen Delivery Room Air 12/19/23 00:00 12/18/23 20:01 12/19/23 00:05 Temperature 36.8 C Pulse Rate 69 69 69 Respiratory Rate 18 Blood Pressure 124/72 Pulse Oximetry 95 Oxygen Delivery 12/19/23 04:01 12/19/23 04:00 12/18/23 21:18 Temperature 36.6 C Pulse Rate 69 69 Respiratory Rate 18 Blood Pressure 145/81 H Pulse Oximetry 95 95 Oxygen Delivery Room Air 12/19/23 07:55 Temperature 35.9 C L Pulse Rate 68 Respiratory Rate 16 Blood Pressure 135/78 Pulse Oximetry 94 Oxygen Delivery Intake/Output Intake/Output: Intake & Output 12/16/23 12/17/23 12/18/23 12/19/23 23:59 23:59 23:59 23:59 Intake Total 039 896 0668 408 Output Total 3650 3950 2550 2250 Balance -4499 -8466 -9572 -9261 Meds/Results Medications: Active Medications Generic Name Dose Route Start Last Admin Trade Name Jesus PRN Reason Stop Dose Admin Apixaban 2.5 mg 12/15/23 21:00 12/19/23 08:36 Apixaban 2.5 Mg Tablet PO 2.5 mg Q12HR AMOR Administration Aspirin 81 mg 12/16/23 09:00 12/19/23 08:36 Aspirin 81 Mg Enteric Tablet PO 81 mg DAILY AMOR Administration Bumetanide 1 mg 12/16/23 17:00 12/19/23 08:37 Bumetanide Inj 1 Mg/4 Ml Vial IV PUSH 1 mg BID AMOR Administration Cefdinir 300 mg 12/18/23 09:00 12/19/23 08:36 Cefdinir 300 Mg Capsule PO 12/20/23 21:00 300 mg DAILY AMOR Administration Ferrous Sulfate 325 mg 12/16/23 17:00 12/19/23 08:36 Ferrous Sulfate [address] PO 325 mg BID AMOR Administration Hydralazine HCl 10 mg 12/16/23 13:00 12/19/23 08:36 Hydralazine 10 Mg Tablet PO 10 mg TID AMOR Administration Potassium Chloride 40 meq/ 520 mls @ 130 mls/hr 12/19/23 08:30 12/19/23 08:37 Sodium Chloride IVPB 12/19/23 12:29 130 mls/hr ONCE ONE Administration Isosorbide Mononitrate 30 mg 12/17/23 09:00 12/19/23 08:36 Isosorbide Mononitrate 30 Mg Tab.Er.24h PO 30 mg DAILY AMOR Administration Losartan Potassium 100 mg 12/16/23 11:00 12/16/23 12:27 Losartan Potassium 100 Mg Tablet PO 100 mg DAILY AMOR Administration Multivitamins Therapeutic 1 tablet 12/16/23 09:00 12/19/23 08:36 Multivitamins Therapeutic Tab (*Bkc) PO 1 tablet DAILY AMOR Administration Pravastatin Sodium 80 mg 12/16/23 21:00 12/18/23 21:21 Pravastatin Sodium 20 Mg Tablet PO 80 mg HS AMOR Administration Senna/Docusate Sodium 1 tab 12/16/23 21:00 12/18/23 21:21 Senna/Docusate Sodium Tablet PO 1 tab HS AMOR Administration Radiology Results: ITS Impressions Abdomen/Pelvis CT 12/15/23 16:22 IMPRESSION: 1. Bilateral pleural effusion with adjacent atelectasis. 2. Minimal pericardial effusion. Minimal cardiomegaly. 3. Ascites. 4. Thickened wall of the gallbladder. Acalculous cholecystitis cannot be excluded. 5. Medial condyle with slight fullness of the left renal pelvis and ureter. 6. Slightly dilated small bowel loops in the pelvis. Early obstruction cannot be excluded. Follow-up advised. 7. Right inguinal hernia with fluid content. Venous Doppler Study 12/16/23 14:43 IMPRESSION: Negative bilateral lower extremity venous US. No deep vein thrombosis. Chest X-Ray 12/17/23 09:45 Impression: Small bilateral pleural effusions. Labs Labs: Laboratory Results - last 24 hr 12/16/23 12/16/23 12/19/23 05:23 11:27 05:14 WBC 6.2 RBC 3.61 L Hgb 11.7 L Hct 34.7 L MCV 96.1 MCH 32.4 MCHC 33.7 RDW 12.7 Plt Count 198 MPV 10.2 Immature Gran % (Auto) 0.3 Neut % (Auto) 68.1 Lymph % (Auto) 17.3 L [place] % (Auto) 9.4 H Eos % (Auto) 3.9 Baso % (Auto) 1.0 Lymph # (Auto) 1.07 [place] # (Auto) 0.6 Eos # (Auto) 0.2 Baso # (Auto) 0.1 Abs Immat Gran (auto) 0.02 Absolute Neuts (auto) 4.2 Absolute Nucleated RBC 0.000 Nucleated RBC % 0.0 Sodium 129 L Potassium 3.1 L Chloride 92 L Carbon Dioxide 26 Anion Gap 11 BUN 29 H Creatinine 2.10 H Estim Creat Clear Calc 27 Estimated GFR 30 L Glucose 102 Serum Osmolality 270 L Calcium 9.1 Phosphorus 5.1 H Magnesium 1.8 Total Bilirubin 0.9 AST 37 ALT 30 Alkaline Phosphatase 35 L Total Protein 7.0 Albumin 3.9 Urine Osmolality 270
--- NOTE | 2023-12-19 13:50 | P.PNNP_ITS ---
Progress Note: A&P Assessment and Plan (1) Chronic kidney disease, stage 4 (severe): Code(s): N18.4 - Chronic kidney disease, stage 4 (severe) Status: Chronic Assessment and Plan: * baseline creatinine runs ~ 2.0 - 2.2mg/dl * due to long standing hypertension along with age-related change based on outpatient evaluation * follows with Dr. Marx for management of his CKD (2) CHF exacerbation: Code(s): I50.9 - Heart failure, unspecified Status: Acute Assessment and Plan: * as noted by symptoms/findings on admission * Cardiology following * Echo results noted * not requiring supplemental oxygen * on diuretic therapy * follow daily weights, I/Os, and fluid status * follow clinical symptoms (3) UTI (urinary tract infection): Code(s): N39.0 - Urinary tract infection, site not specified Status: Acute Assessment and Plan: * admission UA suggestive * urine culture with Klebsiella * on antibiotics (4) Hyponatremia: Code(s): E87.1 - Hypo-osmolality and hyponatremia Status: Chronic Assessment and Plan: * chronic issue at baseline * maybe partly related to #2 * follow trend with treatment of volume overload * on fluid restriction Will continue to follow. Subjective Date/time seen: 12/19/23 13:50 Interval history: Follow-up for chronic kidney disease and volume overload/LE edema. Continues to have good urine output in response to diuretic therapy; swelling/edema has greatly improved as well; no acute issues/events noted at this time; no apparent distress noted. Exam Narrative: General: elderly but WD/WN male in NAD Heart: normal S1 and S2; no rub Lungs: decreased at bases Abdomen: soft, nontender, distension noted, positive bowel sounds Extremities: no cyanosis or clubbing; 1+ edema Skin: no rash Objective Data Vital Signs Vital Signs: Vital Signs Temp Pulse Resp BP Pulse Ox O2 Del Method 12/19/23 12:00 70 12/19/23 12:00 97.4 F L 69 16 126/61 97 12/19/23 08:00 73 12/19/23 08:35 Room Air 12/19/23 07:55 96.7 F L 68 16 135/78 94 12/18/23 21:18 95 Room Air 12/19/23 04:00 97.8 F 69 18 145/81 H 95 12/19/23 04:01 69 12/19/23 00:05 69 12/18/23 20:01 69 12/19/23 00:00 98.2 F 69 18 124/72 95 12/18/23 21:21 97 Room Air 12/18/23 19:59 98.4 F 69 18 125/75 97 Intake/Output Intake/Output: Intake & Output 12/16/23 12/17/23 12/18/23 12/19/23 23:59 23:59 23:59 23:59 Intake Total 316 360 2138 408 Output Total 3650 3950 2550 2250 Balance -4298 -4930 -1460 -1842 Meds/Results Medications: Active Medications Generic Name Dose Route Start Last Admin Trade Name Jesus PRN Reason Stop Dose Admin Apixaban 2.5 mg 12/15/23 21:00 12/19/23 08:36 Apixaban 2.5 Mg Tablet PO 2.5 mg Q12HR AMOR Administration Aspirin 81 mg 12/16/23 09:00 12/19/23 08:36 Aspirin 81 Mg Enteric Tablet PO 81 mg DAILY AMOR Administration Bumetanide 1 mg 12/16/23 17:00 12/19/23 08:37 Bumetanide Inj 1 Mg/4 Ml Vial IV PUSH 1 mg BID AMOR Administration Cefdinir 300 mg 12/18/23 09:00 12/19/23 08:36 Cefdinir 300 Mg Capsule PO 12/20/23 21:00 300 mg DAILY AMOR Administration Ferrous Sulfate 325 mg 12/16/23 17:00 12/19/23 08:36 Ferrous Sulfate [address] PO 325 mg BID AMOR Administration Hydralazine HCl 10 mg 12/16/23 13:00 12/19/23 12:51 Hydralazine 10 Mg Tablet PO 10 mg TID AMOR Administration Isosorbide Mononitrate 30 mg 12/17/23 09:00 12/19/23 08:36 Isosorbide Mononitrate 30 Mg Tab.Er.24h PO 30 mg DAILY AMOR Administration Losartan Potassium 100 mg 12/16/23 11:00 12/16/23 12:27 Losartan Potassium 100 Mg Tablet PO 100 mg DAILY AMOR Administration Multivitamins Therapeutic 1 tablet 12/16/23 09:00 12/19/23 08:36 Multivitamins Therapeutic Tab (*Bkc) PO 1 tablet DAILY AMOR Administration Pravastatin Sodium 80 mg 12/16/23 21:00 12/18/23 21:21 Pravastatin Sodium 20 Mg Tablet PO 80 mg HS AMOR Administration Senna/Docusate Sodium 1 tab 12/16/23 21:00 12/18/23 21:21 Senna/Docusate Sodium Tablet PO 1 tab HS AMOR Administration Radiology Results: ITS Impressions Abdomen/Pelvis CT 12/15/23 16:22 IMPRESSION: 1. Bilateral pleural effusion with adjacent atelectasis. 2. Minimal pericardial effusion. Minimal cardiomegaly. 3. Ascites. 4. Thickened wall of the gallbladder. Acalculous cholecystitis cannot be excluded. 5. Medial condyle with slight fullness of the left renal pelvis and ureter. 6. Slightly dilated small bowel loops in the pelvis. Early obstruction cannot be excluded. Follow-up advised. 7. Right inguinal hernia with fluid content. Venous Doppler Study 12/16/23 14:43 IMPRESSION: Negative bilateral lower extremity venous US. No deep vein thrombosis. Chest X-Ray 12/17/23 09:45 Impression: Small bilateral pleural effusions. Labs Labs: Laboratory Tests 12/19/23 05:14 12/19/23 05:14 Calcium 9.1 Phosphorus 5.1 H Magnesium 1.8 Total Bilirubin 0.9 AST 37 ALT 30 Alkaline Phosphatase 35 L Total Protein 7.0 Albumin 3.9
[2023-12-19] MEDS: PRAVASTATIN SODIUM 20 MG TABLET 80 MG PO (20:56)
[2023-12-19] MEDS: SENNA/DOCUSATE SODIUM TABLET 1 TAB PO (20:57)
[2023-12-20] VITALS (7 sets, daily range): BP systolic 111–140; BP diastolic 54–78; PULSE 69–73; RESP 14–18; TEMP 36.2–36.9; O2SAT 92–98
[2023-12-20 05:30] LABS: Basophils Absolute Auto 0.1 K/mm3 (0.0-0.1); Basophils Percent Auto 0.9 % (0.2-1.2); Eosinophils Absolute Auto 0.3 K/mm3 (0-0.3); Eosinophils Percent Auto 5.3 % (0-4.4); Hematocrit 33.2 % (42.0-52.0); Hemoglobin 11.3 g/dL (14.0-18.0); Immature Granulocyte Absolute 0.02 K/mm3 (0.00-0.031); Immature Granulocyte Percent A 0.4 % (0-0.5); Lymphocytes Absolute Auto 1.03 K/mm3 (0.9-3.2); Lymphocytes Percent Auto 18.7 % (18.3-44.2); Mean Corpuscular Hemoglobin 32.7 pg (26-34); Mean Platelet Volume 9.4 fl (7.4-10.4); Monocytes Absolute Auto 0.5 K/mm3 (0.1-0.6); Monocytes Percent Auto 8.9 % (2.6-8.5); Neutrophils Absolute Auto 3.6 K/mm3 (1.3-6.7); Neutrophils Percent Auto 65.8 % (45.5-73.1); Platelet Count Result 174 k/mm3 (150-375); Red Blood Count 3.46 M/mm3 (4.6-6.20); Red Cell Distribution Width 12.5 % (11.5-14.5); White Blood Count 5.5 K/mm3 (4.5-10.0)
[2023-12-20 05:43] LABS: Alanine Aminotransferase 29 U/L (6-50); Albumin Level 3.5 g/dL (3.5-5.1); Alkaline Phosphatase 30 U/L (38-126); Anion Gap 7 mmol/L (4-12); Aspartate Amino Transferase 36 U/L (17-59); Bilirubin,Total 0.8 mg/dL (0.2-1.3); Blood Urea Nitrogen 31 mg/dL (9-20); Calcium 8.8 mg/dL (8.4-10.2); Carbon Dioxide 31 mmol/L (22-30); Chloride 92 mmol/L (98-107); Estimated CRCL calculation 26 ml/min; Estimated Glomerular Filt Rate 28; Glucose 98 mg/dL (65-110); Magnesium 1.7 mg/dL (1.6-2.3); Phosphorus 5.3 mg/dL (2.5-4.5); Potassium 3.1 mmol/L (3.4-5.0); Sodium 130 mmol/L (137-145)
[2023-12-20] MEDS: ISOSORBIDE MONONITRATE 30 MG TAB.ER.24H PO (08:22)
[2023-12-20] MEDS: MULTIVITAMINS THERAPEUTIC TAB (*BKC) 1 TABLET PO (08:22)
[2023-12-20] MEDS: hydrALAZINE 10 MG TABLET PO ×3 (08:22→18:14)
[2023-12-20] MEDS: FERROUS SULFATE 325 MG TABLET DR PO ×2 (08:23→18:14)
[2023-12-20] MEDS: CEFDINIR 300 MG CAPSULE PO (08:23)
[2023-12-20] MEDS: ASPIRIN 81 MG ENTERIC TABLET PO (08:23)
[2023-12-20] MEDS: APIXABAN 2.5 MG TABLET PO ×2 (08:23→21:18)
[2023-12-20] MEDS: BUMETANIDE INJ 1 MG/4 ML VIAL IV PUSH (08:23)
[2023-12-20] MEDS: POTASSIUM CHLORIDE 20 MEQ PACKET (FOR LIQUID) 60 MEQ PO (08:24)
--- NOTE | 2023-12-20 09:35 | P.PNCA_ITS ---
Progress Note: A&P Assessment and Plan (1) Anasarca: Code(s): R60.1 - Generalized edema Status: Acute Assessment and Plan: Improved with IV Bumex. Will shift to p.o. today, likely discharge tomorrow. Echo showed mild LV dysfunction with EF 40%. Medical therapy limited by renal function. Continue with losartan for now. Consider adding jardiance. Renal function is stable with IV diuresis. No significant bump in creatinine and urine still appears to be clear. Will continue IV Bumex another 24 hours. As compared to weight from a few months ago, he is still up at least 10 lb. He is receiving potassium supplementation. Follow-up with Dr. Tolbert (2) Chronic kidney disease, stage 4 (severe): Code(s): N18.4 - Chronic kidney disease, stage 4 (severe) Status: Chronic Assessment and Plan: Followed by Nephrology. (3) Atrial fibrillation: Code(s): I48.91 - Unspecified atrial fibrillation Status: Acute Assessment and Plan: Continue Eliquis for anticoagulation at 2.5 mg p.o. b.i.d. (4) Essential hypertension: Code(s): I10 - Essential (primary) hypertension Status: Acute Assessment and Plan: At goal Subjective Date/time seen: 12/20/23 09:35 Interval history: E 8-year-old Pleasant gentleman here with complaints of lower extremity swelling and abdominal swelling. In addition to this he reports he has been having some shortness of breath with exertion. He denies fever, chills, chest pain, nausea, vomiting, abdominal pain, or constipation. Date of service 12/17/2023: Less swollen today. No chest pain or shortness of breath Date of service 12/18/2023: Swelling continues to improve. He denies shortness of breath. No chest pain. Date of service 12/19/2023: Swelling has improved but still feels like his abdomen is still protuberant. No shortness of breath. No chest pain Date of service 12/20/2023: Feels good today. Swelling continues to improve. No shortness of breath. Does not report dyspnea when walking the halls. Review of Systems Constitutional: Constitutional: Reports lethargy Eyes: Eyes: Reports no additional eye complaints ENT: Reports system reviewed and no additional complaints, except as documented Cardiovascular: Cardiovascular: Reports leg edema and Reports dyspnea on exertion Respiratory: Respiratory: Reports dyspnea on exertion Gastrointestinal: Gastrointestinal: Reports no additional gastrointestinal complaints Musculoskeletal: Musculoskeletal: Reports no additional musculoskeletal complaints Neurologic: Reports system reviewed and no additional complaints, except as documented Endocrine: Endocrine: Reports no additional endocrine complaints Hematologic/Lymphatic: Hematologic/Lymphatic: Reports no additional hematologic/lymphatic complaints Allergic/Immunologic: Allergic/Immunologic: Reports no additional allergic/immunologic complaints Exam Const: General: comfortable and no acute distress HENMT: Mouth: Yes moist mucous membranes Eyes: Sclera: sclerae normal Neck: Neck: supple Resp: Effort & Inspection: normal respiratory effort Auscultation: clear to auscultation bilaterally Cardio: Rate: regular rate Rhythm: regular rhythm Other: Very soft apical systolic murmur no gallop GI: Auscultation: normal bowel sounds Skin: General skin exam: normal color Neuro: Other: Alert and oriented x3 Extrem: General: edema Psych: Affect: normal affect Objective Data Vital Signs Vital Signs: Vital Signs - 24 hr 12/19/23 12:00 12/19/23 12:00 12/19/23 16:00 Temperature 36.3 C L 36.4 C L Pulse Rate 69 70 69 Respiratory Rate 16 16 Blood Pressure 126/61 118/66 Pulse Oximetry 97 97 Oxygen Delivery 12/19/23 16:00 12/19/23 19:59 12/20/23 00:00 Temperature 36.6 C 36.5 C Pulse Rate 69 69 69 Respiratory Rate 18 18 Blood Pressure 137/78 140/78 Pulse Oximetry 98 98 Oxygen Delivery 12/19/23 20:00 12/20/23 04:00 12/19/23 20:00 Temperature 36.2 C L Pulse Rate 69 69 Respiratory Rate 18 Blood Pressure 129/73 Pulse Oximetry 98 Oxygen Delivery Room Air 12/20/23 00:00 12/20/23 04:00 12/20/23 05:59 Temperature 36.4 C L Pulse Rate 69 69 69 Respiratory Rate 18 Blood Pressure 136/76 Pulse Oximetry 96 Oxygen Delivery 12/20/23 08:00 Temperature 36.4 C Pulse Rate 70 Respiratory Rate 14 Blood Pressure 137/73 Pulse Oximetry 95 Oxygen Delivery Intake/Output Intake/Output: Intake & Output 12/17/23 12/18/23 12/19/23 12/20/23 23:59 23:59 23:59 23:59 Intake Total 530 1090 648 Output Total 3950 2550 4250 2049 [id number] [id number] [phone] -[phone] Meds/Results Medications: Active Medications Generic Name Dose Route Start Last Admin Trade Name Jesus PRN Reason Stop Dose Admin Apixaban 2.5 mg 12/15/23 21:00 12/20/23 08:23 Apixaban 2.5 Mg Tablet PO 2.5 mg Q12HR AMOR Administration Aspirin 81 mg 12/16/23 09:00 12/20/23 08:23 Aspirin 81 Mg Enteric Tablet PO 81 mg DAILY AMOR Administration Bumetanide 1 mg 12/16/23 17:00 12/20/23 08:23 Bumetanide Inj 1 Mg/4 Ml Vial IV PUSH 1 mg BID AMOR Administration Cefdinir 300 mg 12/18/23 09:00 12/20/23 08:23 Cefdinir 300 Mg Capsule PO 12/20/23 21:00 300 mg DAILY AMOR Administration Ferrous Sulfate 325 mg 12/16/23 17:00 12/20/23 08:23 Ferrous Sulfate [address] PO 325 mg BID AMOR Administration Hydralazine HCl 10 mg 12/16/23 13:00 12/20/23 08:22 Hydralazine 10 Mg Tablet PO 10 mg TID AMOR Administration Isosorbide Mononitrate 30 mg 12/17/23 09:00 12/20/23 08:22 Isosorbide Mononitrate 30 Mg Tab.Er.24h PO 30 mg DAILY AMOR Administration Losartan Potassium 100 mg 12/16/23 11:00 12/16/23 12:27 Losartan Potassium 100 Mg Tablet PO 100 mg DAILY AMOR Administration Multivitamins Therapeutic 1 tablet 12/16/23 09:00 12/20/23 08:22 Multivitamins Therapeutic Tab (*Bkc) PO 1 tablet DAILY AMOR Administration Pravastatin Sodium 80 mg 12/16/23 21:00 12/19/23 20:56 Pravastatin Sodium 20 Mg Tablet PO 80 mg HS AMOR Administration Senna/Docusate Sodium 1 tab 12/16/23 21:00 12/19/23 20:57 Senna/Docusate Sodium Tablet PO 1 tab HS AMOR Administration Radiology Results: ITS Impressions Abdomen/Pelvis CT 12/15/23 16:22 IMPRESSION: 1. Bilateral pleural effusion with adjacent atelectasis. 2. Minimal pericardial effusion. Minimal cardiomegaly. 3. Ascites. 4. Thickened wall of the gallbladder. Acalculous cholecystitis cannot be excluded. 5. Medial condyle with slight fullness of the left renal pelvis and ureter. 6. Slightly dilated small bowel loops in the pelvis. Early obstruction cannot be excluded. Follow-up advised. 7. Right inguinal hernia with fluid content. Venous Doppler Study 12/16/23 14:43 IMPRESSION: Negative bilateral lower extremity venous US. No deep vein thrombosis. Chest X-Ray 12/17/23 09:45 Impression: Small bilateral pleural effusions. Labs Labs: Laboratory Results - last 24 hr 12/20/23 05:19 WBC 5.5 RBC 3.46 L Hgb 11.3 L Hct 33.2 L MCV 96.0 MCH 32.7 MCHC 34.0 RDW 12.5 Plt Count 174 MPV 9.4 Immature Gran % (Auto) 0.4 Neut % (Auto) 65.8 Lymph % (Auto) 18.7 [place] % (Auto) 8.9 H Eos % (Auto) 5.3 H Baso % (Auto) 0.9 Lymph # (Auto) 1.03 [place] # (Auto) 0.5 Eos # (Auto) 0.3 Baso # (Auto) 0.1 Abs Immat Gran (auto) 0.02 Absolute Neuts (auto) 3.6 Absolute Nucleated RBC 0.000 Nucleated RBC % 0.0 Sodium 130 L Potassium 3.1 L Chloride 92 L Carbon Dioxide 31 H Anion Gap 7 BUN 31 H Creatinine 2.20 H Estim Creat Clear Calc 26 Estimated GFR 28 L Glucose 98 Calcium 8.8 Phosphorus 5.3 H Magnesium 1.7 Total Bilirubin 0.8 AST 36 ALT 29 Alkaline Phosphatase 30 L Total Protein 6.0 L Albumin 3.5
--- NOTE | 2023-12-20 11:37 | P.PNIM_ITS ---
Progress Note: A&P Assessment and Plan (1) CHF exacerbation: Code(s): I50.9 - Heart failure, unspecified Status: Acute Assessment and Plan: Patient presented with complaints of shortness of breath and increased lower extremity edema and abdominal distention. BNP 22,000 on admission. Chest x-ray shows cardiomegaly with cardiac decompensation and pulmonary edema and bilateral pleural effusion with ascites. He received IV Lasix 80 mg in the ED. Currently not requiring oxygen. * Received IV Lasix 80 mg today. Cardiology recommends diuresis with Bumex 1 mg BID. Nephrology added metolazone 2.5 mg PO once. * BNP elevated. No ECHO on file, ECHO ordered for today. Review of nephrology clinic notes state LVH EF 44% and aortic sclerosis from ECHO in 2019. * ECHO this admission global systolic function EF approximately 40%, biatrial dilation. 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 He appears to have decreased edema today and lung sounds are clear (2) UTI (urinary tract infection): Code(s): N39.0 - Urinary tract infection, site not specified Status: Acute Assessment and Plan: UA concerning of infection. cloudy colored urine with positive nitrates, 3+ leukocytes, pyuria, and 4+ bacteria. Normal WBC with elevated neutrophils. Patient has urostomy. * Urine culture is growing gram negative bacilli * He was started on Rocephin * Urine culture grew klebsiella. He had complaints of abdominal pain, cloudy urine, and weakness. There is a chance this is colonization as it is unclear if the urine sample was obtained from a clean urostomy bag. Given non-specific symptoms and age will finish a 5 day course with cefdinir renally dosed. 12/20/23: * Pt to finish his Cefdinir today. * He is not meeting SIRS/Sepsis criteria. * Urine is clear and light yellow appearing. (3) Chronic kidney disease, stage 4 (severe): Code(s): N18.4 - Chronic kidney disease, stage 4 (severe) Status: Chronic Assessment and Plan: Creatinine seems to be at baseline 2.10 with GFR 30. Potassium 4.0, phosphorus pending * Diuresis with assistance of nephrology, cardiology. Rec's appreciated * Currently receiving Bumex 1 mg IVP BID and metolazone 2.5 mg PO one time * Urostomy to Blake bag, strict I&O * Urine output for the last 24 hours was 3.9 L, 0.65 ml/kg/hr. Net negative 7730 ml for this admission 12/20/23: * Output continues to be improving with 4050 out in last 24 hours, net negative [id number] during this admission. * Weight is decreased today from 101.3 kg yesterday to 96.9 kg today and down from 106.8 kg on admission. * Continue accurate I&O and daily weights. (4) Diarrhea: Code(s): R19.7 - Diarrhea, unspecified Status: Acute Assessment and Plan: Patient reports watery stool of the last few days. Today stool is semi formed and he is passing flatus. CT abdomen and pelvis showed mildly dilated loops of small bowel. He denies abdominal pain, nausea, vomiting. His abdomen is distended with tinkling bowel sounds. 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 Sodium on admission was 123. Sodium 135 from 09/10/23. He feels weak. * Improving with diuresis * Fluid restriction 1.2 L * Nephrology is following 12/20/23: * Continue fluid restriction. * Sodium remains stable at 130. * Urine osmolality is normal at 270 * Urine sodium is 75. * Nephrology is following. (6) Hypokalemia: Code(s): E87.6 - Hypokalemia Status: Acute Assessment and Plan: * K+ 3.1 secondary to diuretics * replenished * monitor and replenish keep K+ >4.0 12/20/23: * 3.1 again today. * 60 mEq KCL ordered for oral replacement. Plan Code status: Full code per patient DVT prophylaxis: Eliquis Stress ulcer prophylaxis: Protonix 40 daily PT/OT notes: PT/OT: Recommend home Disposition: Patient continues admission to the medical unit for further treatment bilateral lower extremity edema currently on IV Bumex cardiology to continue diuresis and I agree as well. Patient was seen by PT/OT recommended home she patient ambulatory on home O2 and can perform his own ADLs. Time Spent With Patient Time with patient: 25 - 35 minutes Subjective Date/time seen: 12/20/23 0840 Interval history: This very pleasant male pt was examined at the bedside today in interval assessment. Pt continues to appear to improve and he states he feels well other than the bed making his coccyx sore. No open areas, and skin is blanchable. He denies any CP or dyspnea. Cardiology has switched his Bumex to oral today from IV and they are anticipating discharge to home tomorrow. He continues to have low potassium at 3.1 and received an additional 60 mEq today. In addition he is receiving his final dose of Cefdinir today to treat UTI. He does not meet Sepsis criteria. ECHO performed here during this admission shows global systolic dysfunction with EF of 40%. He has no acute complaints today. Review of Systems Review of Systems: All systems reviewed & are unremarkable except as noted in HPI and below Exam Narrative: General: appears comfortable, in no acute distress Respiratory: breathing is unlabored with even chest rise/fall, lungs are diminished, no crackles appreciated today Cardiovascular: Rate and rhythm regular, normal s1s2, no murmur Abdomen: distended, soft, active bowel sounds, non-tender, active bowel sounds. Urostomy present with clear yellow urine. Extremities: No cyanosis. Bilateral lower extremity edema with right greater than left, +2 pitting to bilateral lower legs. Edema is improving. Neuro: A&O x 4, pleasant, good insight and judgement Skin: Warm, dry, intact Objective Data Vital Signs Vital Signs: Vital Signs - 24 hr 12/19/23 12:00 12/19/23 12:00 12/19/23 16:00 Temperature 97.4 F L 97.5 F L Pulse Rate 69 70 69 Respiratory Rate 16 16 Blood Pressure 126/61 118/66 Pulse Oximetry 97 97 Oxygen Delivery 12/19/23 16:00 12/19/23 19:59 12/20/23 00:00 Temperature 97.9 F 97.7 F Pulse Rate 69 69 69 Respiratory Rate 18 18 Blood Pressure 137/78 140/78 Pulse Oximetry 98 98 Oxygen Delivery 12/19/23 20:00 12/20/23 04:00 12/19/23 20:00 Temperature 97.2 F L Pulse Rate 69 69 Respiratory Rate 18 Blood Pressure 129/73 Pulse Oximetry 98 Oxygen Delivery Room Air 12/20/23 00:00 12/20/23 04:00 12/20/23 05:59 Temperature 97.5 F L Pulse Rate 69 69 69 Respiratory Rate 18 Blood Pressure 136/76 Pulse Oximetry 96 Oxygen Delivery 12/20/23 08:00 12/20/23 08:20 12/20/23 08:00 Temperature 97.6 F Pulse Rate 70 71 Respiratory Rate 14 Blood Pressure 137/73 Pulse Oximetry 95 Oxygen Delivery Room Air Intake/Output Intake/Output: Intake & Output 12/17/23 12/18/23 12/19/23 12/20/23 23:59 23:59 23:59 23:59 Intake Total 530 1090 648 240 Output Total 3950 2550 4250 0 [facility] -[phone] -[id number] Meds/Results Medications: Active Medications Generic Name Dose Route Start Last Admin Trade Name Freq PRN Reason Stop Dose Admin Apixaban 2.5 mg 12/15/23 21:00 12/20/23 08:23 Apixaban 2.5 Mg Tablet PO 2.5 mg Q12HR AMOR Administration Aspirin 81 mg 12/16/23 09:00 12/20/23 08:23 Aspirin 81 Mg Enteric Tablet PO 81 mg DAILY AMOR Administration Bumetanide 1 mg 12/16/23 17:00 12/20/23 08:23 Bumetanide Inj 1 Mg/4 Ml Vial IV PUSH 1 mg BID AMOR Administration Cefdinir 300 mg 12/18/23 09:00 12/20/23 08:23 Cefdinir 300 Mg Capsule PO 12/20/23 21:00 300 mg DAILY AMOR Administration Ferrous Sulfate 325 mg 12/16/23 17:00 12/20/23 08:23 Ferrous Sulfate [address] PO 325 mg BID AMOR Administration Hydralazine HCl 10 mg 12/16/23 13:00 12/20/23 08:22 Hydralazine 10 Mg Tablet PO 10 mg TID AMOR Administration Isosorbide Mononitrate 30 mg 12/17/23 09:00 12/20/23 08:22 Isosorbide Mononitrate 30 Mg Tab.Er.24h PO 30 mg DAILY AMOR Administration Losartan Potassium 100 mg 12/16/23 11:00 12/16/23 12:27 Losartan Potassium 100 Mg Tablet PO 100 mg DAILY AMOR Administration Multivitamins Therapeutic 1 tablet 12/16/23 09:00 12/20/23 08:22 Multivitamins Therapeutic Tab (*Bkc) PO 1 tablet DAILY AMOR Administration Pravastatin Sodium 80 mg 12/16/23 21:00 12/19/23 20:56 Pravastatin Sodium 20 Mg Tablet PO 80 mg HS AMOR Administration Senna/Docusate Sodium 1 tab 12/16/23 21:00 12/19/23 20:57 Senna/Docusate Sodium Tablet PO 1 tab HS AMOR Administration Radiology Results: ITS Impressions Abdomen/Pelvis CT 12/15/23 16:22 IMPRESSION: 1. Bilateral pleural effusion with adjacent atelectasis. 2. Minimal pericardial effusion. Minimal cardiomegaly. 3. Ascites. 4. Thickened wall of the gallbladder. Acalculous cholecystitis cannot be excluded. 5. Medial condyle with slight fullness of the left renal pelvis and ureter. 6. Slightly dilated small bowel loops in the pelvis. Early obstruction cannot be excluded. Follow-up advised. 7. Right inguinal hernia with fluid content. Venous Doppler Study 12/16/23 14:43 IMPRESSION: Negative bilateral lower extremity venous US. No deep vein thrombosis. Chest X-Ray 12/17/23 09:45 Impression: Small bilateral pleural effusions. Labs Labs: Laboratory Results - last 24 hr 12/20/23 05:19 WBC 5.5 RBC 3.46 L Hgb 11.3 L Hct 33.2 L MCV 96.0 MCH 32.7 MCHC 34.0 RDW 12.5 Plt Count 174 MPV 9.4 Immature Gran % (Auto) 0.4 Neut % (Auto) 65.8 Lymph % (Auto) 18.7 [place] % (Auto) 8.9 H Eos % (Auto) 5.3 H Baso % (Auto) 0.9 Lymph # (Auto) 1.03 [place] # (Auto) 0.5 Eos # (Auto) 0.3 Baso # (Auto) 0.1 Abs Immat Gran (auto) 0.02 Absolute Neuts (auto) 3.6 Absolute Nucleated RBC 0.000 Nucleated RBC % 0.0 Sodium 130 L Potassium 3.1 L Chloride 92 L Carbon Dioxide 31 H Anion Gap 7 BUN 31 H Creatinine 2.20 H Estim Creat Clear Calc 26 Estimated GFR 28 L Glucose 98 Calcium 8.8 Phosphorus 5.3 H Magnesium 1.7 Total Bilirubin 0.8 AST 36 ALT 29 Alkaline Phosphatase 30 L Total Protein 6.0 L Albumin 3.5 Quality VTE Prophylaxis VTE prophylaxis: pharmacologic ordered
--- NOTE | 2023-12-20 14:40 | P.PNNP_ITS ---
Progress Note: A&P Assessment and Plan (1) Chronic kidney disease, stage 4 (severe): Code(s): N18.4 - Chronic kidney disease, stage 4 (severe) Status: Chronic Assessment and Plan: * baseline creatinine runs ~ 2.0 - 2.2mg/dl * due to long standing hypertension along with age-related change based on outpatient evaluation * follows with Dr. Marx for management of his CKD (2) CHF exacerbation: Code(s): I50.9 - Heart failure, unspecified Status: Acute Assessment and Plan: * as noted by symptoms/findings on admission * Cardiology following * Echo results noted * not requiring supplemental oxygen * on diuretic therapy * follow daily weights, I/Os, and fluid status * follow clinical symptoms (3) UTI (urinary tract infection): Code(s): N39.0 - Urinary tract infection, site not specified Status: Acute Assessment and Plan: * admission UA suggestive * urine culture with Klebsiella * on antibiotics (4) Hyponatremia: Code(s): E87.1 - Hypo-osmolality and hyponatremia Status: Chronic Assessment and Plan: * chronic issue at baseline * maybe partly related to #2 * follow trend with treatment of volume overload * on fluid restriction Will continue to follow. Subjective Date/time seen: 12/20/23 14:40 Interval history: Follow-up for chronic kidney disease and volume overload/LE edema. No acute complaints voiced at the time of my visit; continues to make slow and steady progress; ongoing improvement in swelling/edema noted; no events overnight or earlier this morning. Exam Narrative: General: elderly but WD/WN male in NAD Heart: normal S1 and S2; no rub Lungs: decreased at bases Abdomen: soft, nontender, distension noted, positive bowel sounds Extremities: no cyanosis or clubbing; 1+ edema Skin: no nodules Objective Data Vital Signs Vital Signs: Vital Signs Temp Pulse Resp BP Pulse Ox O2 Del Method 12/20/23 12:00 70 12/20/23 12:00 97.5 F L 69 14 111/54 L 96 12/20/23 08:00 71 12/20/23 08:20 Room Air 12/20/23 08:00 97.6 F 70 14 137/73 95 12/20/23 05:59 97.5 F L 69 18 136/76 96 12/20/23 04:00 69 12/20/23 00:00 69 12/19/23 20:00 69 12/20/23 04:00 97.2 F L 69 18 129/73 98 12/19/23 20:00 Room Air 12/20/23 00:00 97.7 F 69 18 140/78 98 12/19/23 19:59 97.9 F 69 18 137/78 98 12/19/23 16:00 69 12/19/23 16:00 97.5 F L 69 16 118/66 97 Intake/Output Intake/Output: Intake & Output 12/17/23 12/18/23 12/19/23 12/20/23 23:59 23:59 23:59 23:59 Intake Total 530 1090 648 480 Output Total 3950 2550 4250 2050 Balance -2184 -5736 -3351 -8870 Meds/Results Medications: Active Medications Generic Name Dose Route Start Last Admin Trade Name Freq PRN Reason Stop Dose Admin Apixaban 2.5 mg 12/15/23 21:00 12/20/23 08:23 Apixaban 2.5 Mg Tablet PO 2.5 mg Q12HR AMOR Administration Aspirin 81 mg 12/16/23 09:00 12/20/23 08:23 Aspirin 81 Mg Enteric Tablet PO 81 mg DAILY AMOR Administration Bumetanide 1 mg/ Bumetanide 0. 1.5 mg 12/20/23 17:00 5 mg PO BID AMOR Cefdinir 300 mg 12/18/23 09:00 12/20/23 08:23 Cefdinir 300 Mg Capsule PO 12/20/23 21:00 300 mg DAILY AMOR Administration Ferrous Sulfate 325 mg 12/16/23 17:00 12/20/23 08:23 Ferrous Sulfate [address] PO 325 mg BID AMOR Administration Hydralazine HCl 10 mg 12/16/23 13:00 12/20/23 14:17 Hydralazine 10 Mg Tablet PO 10 mg TID AMOR Administration Magnesium Sulfate 2 gm in 50 mls @ 25 mls/hr 12/20/23 14:41 12/20/23 15:02 Magnesium Sulf 2 Gm/Water 50ml IVPB 12/20/23 16:40 25 mls/hr ONCE ONE Administration Isosorbide Mononitrate 30 mg 12/17/23 09:00 12/20/23 08:22 Isosorbide Mononitrate 30 Mg Tab.Er.24h PO 30 mg DAILY AMOR Administration Losartan Potassium 100 mg 12/16/23 11:00 12/16/23 12:27 Losartan Potassium 100 Mg Tablet PO 100 mg DAILY AMOR Administration Multivitamins Therapeutic 1 tablet 12/16/23 09:00 12/20/23 08:22 Multivitamins Therapeutic Tab (*Bkc) PO 1 tablet DAILY AMOR Administration Pravastatin Sodium 80 mg 12/16/23 21:00 12/19/23 20:56 Pravastatin Sodium 20 Mg Tablet PO 80 mg HS AMOR Administration Senna/Docusate Sodium 1 tab 12/16/23 21:00 12/19/23 20:57 Senna/Docusate Sodium Tablet PO 1 tab HS AMOR Administration Radiology Results: ITS Impressions Abdomen/Pelvis CT 12/15/23 16:22 IMPRESSION: 1. Bilateral pleural effusion with adjacent atelectasis. 2. Minimal pericardial effusion. Minimal cardiomegaly. 3. Ascites. 4. Thickened wall of the gallbladder. Acalculous cholecystitis cannot be excluded. 5. Medial condyle with slight fullness of the left renal pelvis and ureter. 6. Slightly dilated small bowel loops in the pelvis. Early obstruction cannot be excluded. Follow-up advised. 7. Right inguinal hernia with fluid content. Venous Doppler Study 12/16/23 14:43 IMPRESSION: Negative bilateral lower extremity venous US. No deep vein thrombosis. Chest X-Ray 12/17/23 09:45 Impression: Small bilateral pleural effusions. Labs Labs: Laboratory Tests 12/20/23 05:19 12/20/23 05:19 Calcium 8.8 Phosphorus 5.3 H Magnesium 1.7 Total Bilirubin 0.8 AST 36 ALT 29 Alkaline Phosphatase 30 L Total Protein 6.0 L Albumin 3.5
[2023-12-20] MEDS: MAGNESIUM SULF 2 GM/WATER 50ML 2 GM/50 ML BAG IVPB (15:02)
[2023-12-20] MEDS: BUMETANIDE PO 1 MG, BUMETANIDE PO 0.5 MG 1.5 MG PO (18:14)
[2023-12-20] MEDS: PRAVASTATIN SODIUM 20 MG TABLET 80 MG PO (21:17)
[2023-12-20] MEDS: SENNA/DOCUSATE SODIUM TABLET 1 TAB PO (21:17)
[2023-12-21] VITALS: BP 124/64; PULSE 67; PULSE 69; RESP 18; TEMP 36.7; O2SAT 97
[2023-12-21 04:00] VITALS: BP 132/75; PULSE 68; PULSE 69; RESP 18; TEMP 36.4; O2SAT 96
[2023-12-21 06:22] LABS: Basophils Absolute Auto 0.1 K/mm3 (0.0-0.1); Basophils Percent Auto 0.8 % (0.2-1.2); Eosinophils Absolute Auto 0.4 K/mm3 (0-0.3); Eosinophils Percent Auto 5.5 % (0-4.4); Hematocrit 35.2 % (42.0-52.0); Immature Granulocyte Absolute 0.02 K/mm3 (0.00-0.031); Immature Granulocyte Percent A 0.3 % (0-0.5); Lymphocytes Absolute Auto 1.15 K/mm3 (0.9-3.2); Lymphocytes Percent Auto 18.1 % (18.3-44.2); Mean Corpuscular HGB Conc 34.1 g/dl (32-36); Mean Corpuscular Volume 96.7 fl (80-100); Mean Platelet Volume 9.9 fl (7.4-10.4); Monocytes Absolute Auto 0.6 K/mm3 (0.1-0.6); Monocytes Percent Auto 9.1 % (2.6-8.5); Neutrophils Absolute Auto 4.2 K/mm3 (1.3-6.7); Neutrophils Percent Auto 66.2 % (45.5-73.1); Platelet Count Result 187 k/mm3 (150-375); Red Blood Count 3.64 M/mm3 (4.6-6.20); Red Cell Distribution Width 12.6 % (11.5-14.5); White Blood Count 6.4 K/mm3 (4.5-10.0)
[2023-12-21 06:37] LABS: Alanine Aminotransferase 37 U/L (6-50); Albumin Level 3.7 g/dL (3.5-5.1); Alkaline Phosphatase 32 U/L (38-126); Anion Gap 7 mmol/L (4-12); Aspartate Amino Transferase 43 U/L (17-59); Bilirubin,Total 0.9 mg/dL (0.2-1.3); Blood Urea Nitrogen 36 mg/dL (9-20); Carbon Dioxide 34 mmol/L (22-30); Chloride 89 mmol/L (98-107); Estimated CRCL calculation 26 ml/min; Estimated Glomerular Filt Rate 28; Glucose 99 mg/dL (65-110); Magnesium 1.9 mg/dL (1.6-2.3); Phosphorus 5.3 mg/dL (2.5-4.5); Potassium 3.1 mmol/L (3.4-5.0); Sodium 130 mmol/L (137-145)
[2023-12-21 08:00] VITALS: PULSE 71
--- NOTE | 2023-12-21 08:22 | PM.PNCARD ---
Progress Note: A&P Assessment and Plan (1) Anasarca: Code(s): R60.1 - Generalized edema Status: Acute Assessment and Plan: Improved with IV Bumex. Recommend to continue p.o. Bumex at discharge, 1mg b.i.d. Echo showed mild LV dysfunction with EF 40%. Medical therapy limited by renal function. Continue with losartan for now. Consider adding jardiance. Renal function is stable. OK for discharge today from a cardiac standpoint. Follow-up with Dr. Tolbert (2) Chronic kidney disease, stage 4 (severe): Code(s): N18.4 - Chronic kidney disease, stage 4 (severe) Status: Chronic Assessment and Plan: Followed by Nephrology. (3) Atrial fibrillation: Code(s): I48.91 - Unspecified atrial fibrillation Status: Acute Assessment and Plan: Continue Eliquis for anticoagulation at 2.5 mg p.o. b.i.d. (4) Essential hypertension: Code(s): I10 - Essential (primary) hypertension Status: Acute Assessment and Plan: At goal Subjective Date/time seen: 12/21/23 08:22 Interval history: E 8-year-old Pleasant gentleman here with complaints of lower extremity swelling and abdominal swelling. In addition to this he reports he has been having some shortness of breath with exertion. He denies fever, chills, chest pain, nausea, vomiting, abdominal pain, or constipation. Date of service 12/17/2023: Less swollen today. No chest pain or shortness of breath Date of service 12/18/2023: Swelling continues to improve. He denies shortness of breath. No chest pain. Date of service 12/19/2023: Swelling has improved but still feels like his abdomen is still protuberant. No shortness of breath. No chest pain Date of service 12/20/2023: Feels good today. Swelling continues to improve. No shortness of breath. Does not report dyspnea when walking the halls. Date of service 12/21/2023: No complaints this morning, feels good Review of Systems Constitutional: Constitutional: Reports lethargy Eyes: Eyes: Reports no additional eye complaints ENT: Reports system reviewed and no additional complaints, except as documented Cardiovascular: Cardiovascular: Reports leg edema and Reports dyspnea on exertion Respiratory: Respiratory: Reports dyspnea on exertion Gastrointestinal: Gastrointestinal: Reports no additional gastrointestinal complaints Musculoskeletal: Musculoskeletal: Reports no additional musculoskeletal complaints Neurologic: Reports system reviewed and no additional complaints, except as documented Endocrine: Endocrine: Reports no additional endocrine complaints Hematologic/Lymphatic: Hematologic/Lymphatic: Reports no additional hematologic/lymphatic complaints Allergic/Immunologic: Allergic/Immunologic: Reports no additional allergic/immunologic complaints Exam Const: General: comfortable and no acute distress HENMT: Mouth: Yes moist mucous membranes Eyes: Sclera: sclerae normal Neck: Neck: supple Resp: Effort & Inspection: normal respiratory effort Auscultation: clear to auscultation bilaterally Cardio: Rate: regular rate Rhythm: regular rhythm Other: Very soft apical systolic murmur no gallop GI: Auscultation: normal bowel sounds Skin: General skin exam: normal color Neuro: Other: Alert and oriented x3 Extrem: General: edema Other: Trivial Psych: Affect: normal affect Objective Data Vital Signs Vital Signs: Vital Signs - 24 hr 12/20/23 12:00 12/20/23 12:00 12/20/23 16:00 Temperature 36.4 C L Pulse Rate 69 70 73 Respiratory Rate 14 Blood Pressure 111/54 L Pulse Oximetry 96 12/20/23 16:00 12/20/23 20:00 12/21/23 00:00 Temperature 36.9 C 36.9 C 36.7 C Pulse Rate 70 69 67 Respiratory Rate 16 18 18 Blood Pressure 113/61 124/57 L 124/64 Pulse Oximetry 97 92 97 12/20/23 20:00 12/21/23 00:00 12/21/23 04:00 Temperature 36.4 C L Pulse Rate 69 69 68 Respiratory Rate 18 Blood Pressure 132/75 Pulse Oximetry 96 12/21/23 04:00 Temperature Pulse Rate 69 Respiratory Rate Blood Pressure Pulse Oximetry Intake/Output Intake/Output: Intake & Output 12/18/23 12/19/23 12/20/23 12/21/23 23:59 23:59 23:59 23:59 Intake Total 1090 648 720 Output Total 2550 2723 6166 3058 [facility] -1460 -3602 -3030 -3050 Meds/Results Medications: Active Medications Generic Name Dose Route Start Last Admin Trade Name Freq PRN Reason Stop Dose Admin Apixaban 2.5 mg 12/15/23 21:00 12/20/23 21:18 Apixaban 2.5 Mg Tablet PO 2.5 mg Q12HR AMOR Administration Aspirin 81 mg 12/16/23 09:00 12/20/23 08:23 Aspirin 81 Mg Enteric Tablet PO 81 mg DAILY AMOR Administration Bumetanide 1 mg/ Bumetanide 0. 1.5 mg 12/20/23 17:00 12/20/23 18:14 5 mg PO 1.5 mg BID AMOR Administration Ferrous Sulfate 325 mg 12/16/23 17:00 12/20/23 18:14 Ferrous Sulfate [address] PO 325 mg BID AMOR Administration Hydralazine HCl 10 mg 12/16/23 13:00 12/20/23 18:14 Hydralazine 10 Mg Tablet PO 10 mg TID AMOR Administration Isosorbide Mononitrate 30 mg 12/17/23 09:00 12/20/23 08:22 Isosorbide Mononitrate 30 Mg Tab.Er.24h PO 30 mg DAILY AMOR Administration Losartan Potassium 100 mg 12/16/23 11:00 12/16/23 12:27 Losartan Potassium 100 Mg Tablet PO 100 mg DAILY AMOR Administration Multivitamins Therapeutic 1 tablet 12/16/23 09:00 12/20/23 08:22 Multivitamins Therapeutic Tab (*Bkc) PO 1 tablet DAILY AMOR Administration Pravastatin Sodium 80 mg 12/16/23 21:00 12/20/23 21:17 Pravastatin Sodium 20 Mg Tablet PO 80 mg HS AMOR Administration Senna/Docusate Sodium 1 tab 12/16/23 21:00 12/20/23 21:17 Senna/Docusate Sodium Tablet PO 1 tab HS AMOR Administration Radiology Results: ITS Impressions Abdomen/Pelvis CT 12/15/23 16:22 IMPRESSION: 1. Bilateral pleural effusion with adjacent atelectasis. 2. Minimal pericardial effusion. Minimal cardiomegaly. 3. Ascites. 4. Thickened wall of the gallbladder. Acalculous cholecystitis cannot be excluded. 5. Medial condyle with slight fullness of the left renal pelvis and ureter. 6. Slightly dilated small bowel loops in the pelvis. Early obstruction cannot be excluded. Follow-up advised. 7. Right inguinal hernia with fluid content. Venous Doppler Study 12/16/23 14:43 IMPRESSION: Negative bilateral lower extremity venous US. No deep vein thrombosis. Chest X-Ray 12/17/23 09:45 Impression: Small bilateral pleural effusions. Labs Labs: Laboratory Results - last 24 hr 12/21/23 05:54 WBC 6.4 RBC 3.64 L Hgb 12.0 L Hct 35.2 L MCV 96.7 MCH 33.0 MCHC 34.1 RDW 12.6 Plt Count 187 MPV 9.9 Immature Gran % (Auto) 0.3 Neut % (Auto) 66.2 Lymph % (Auto) 18.1 L Crosby % (Auto) 9.1 H Eos % (Auto) 5.5 H Baso % (Auto) 0.8 Lymph # (Auto) 1.15 Crosby # (Auto) 0.6 Eos # (Auto) 0.4 H Baso # (Auto) 0.1 Abs Immat Gran (auto) 0.02 Absolute Neuts (auto) 4.2 Absolute Nucleated RBC 0.000 Nucleated RBC % 0.0 Sodium 130 L Potassium 3.1 L Chloride 89 L Carbon Dioxide 34 H Anion Gap 7 BUN 36 H Creatinine 2.20 H Estim Creat Clear Calc 26 Estimated GFR 28 L Glucose 99 Calcium 9.0 Phosphorus 5.3 H Magnesium 1.9 Total Bilirubin 0.9 AST 43 ALT 37 Alkaline Phosphatase 32 L Total Protein 7.0 Albumin 3.7 Quality VTE Prophylaxis VTE prophylaxis: pharmacologic ordered
[2023-12-21 09:33] VITALS: BP 124/62; PULSE 77; RESP 16; O2SAT 99
[2023-12-21] MEDS: FERROUS SULFATE 325 MG TABLET DR PO (09:34)
[2023-12-21] MEDS: ASPIRIN 81 MG ENTERIC TABLET PO (09:34)
[2023-12-21] MEDS: ISOSORBIDE MONONITRATE 30 MG TAB.ER.24H PO (09:34)
[2023-12-21] MEDS: BUMETANIDE PO 1 MG, BUMETANIDE PO 0.5 MG 1.5 MG PO (09:34)
[2023-12-21] MEDS: MULTIVITAMINS THERAPEUTIC TAB (*BKC) 1 TABLET PO (09:34)
[2023-12-21] MEDS: APIXABAN 2.5 MG TABLET PO (09:34)
[2023-12-21] MEDS: hydrALAZINE 10 MG TABLET PO ×2 (09:34→12:45)
--- NOTE | 2023-12-21 11:05 | PCNWS ---
Weekly nutritional screen. Patient is tolerating current heart healthy diet with adequate intake at 100% all meals, noted a 1200ml Fluid restriction. No weight loss reported. No nutritional recommendations at this time.
--- NOTE | 2023-12-21 11:19 | P.PNNP_ITS ---
Progress Note: A&P Assessment and Plan (1) Chronic kidney disease, stage 4 (severe): Code(s): N18.4 - Chronic kidney disease, stage 4 (severe) Status: Chronic Assessment and Plan: * baseline creatinine runs ~ 2.0 - 2.2mg/dl * due to long standing hypertension along with age-related change based on outpatient evaluation * follows with Dr. Marx for management of his CKD (2) CHF exacerbation: Code(s): I50.9 - Heart failure, unspecified Status: Acute Assessment and Plan: * as noted by symptoms/findings on admission * Cardiology following * Echo results noted * not requiring supplemental oxygen * on diuretic therapy * follow daily weights, I/Os, and fluid status * follow clinical symptoms (3) UTI (urinary tract infection): Code(s): N39.0 - Urinary tract infection, site not specified Status: Acute Assessment and Plan: * admission UA suggestive * urine culture with Klebsiella * on antibiotics (4) Hyponatremia: Code(s): E87.1 - Hypo-osmolality and hyponatremia Status: Chronic Assessment and Plan: * chronic issue at baseline * maybe partly related to #2 * follow trend with treatment of volume overload * on fluid restriction Will continue to follow. Subjective Date/time seen: 12/21/23 11:19 Interval history: Follow-up for chronic kidney disease and volume overload/LE edema. Appears to be doing quite well at the time of my visit; swelling/edema and well as respiratory status/breathing; has been ambulating in the room and the hallways without any issues or problems; now on oral diuretic therapy and renal function/creatinine remains stable in spite of previous IV diuresis; no apparent distress noted at the time of my visit; son at bedside. Exam Narrative: General: elderly but WD/WN male in NAD Heart: normal S1 and S2; no rub Lungs: decreased at bases Abdomen: soft, nontender, distension noted, positive bowel sounds Extremities: no cyanosis or clubbing; trace edema Skin: warm and dry Objective Data Vital Signs Vital Signs: Vital Signs Temp Pulse Resp BP Pulse Ox O2 Del Method 12/21/23 09:34 Room Air 12/21/23 08:00 71 12/21/23 09:33 77 16 124/62 99 12/21/23 04:00 69 12/21/23 04:00 97.5 F L 68 18 132/75 96 12/21/23 00:00 69 12/20/23 20:00 69 12/21/23 00:00 98.0 F 67 18 124/64 97 12/20/23 20:00 98.4 F 69 18 124/57 L 92 12/20/23 16:00 98.5 F 70 16 113/61 97 12/20/23 16:00 73 Intake/Output Intake/Output: Intake & Output 12/18/23 12/19/23 12/20/23 12/21/23 23:59 23:59 23:59 23:59 Intake Total 1090 648 720 120 Output Total 2550 4250 3750 3050 Balance -4419 -5387 -3030 -2930 Meds/Results Medications: Active Medications Generic Name Dose Route Start Last Admin Trade Name Freq PRN Reason Stop Dose Admin Apixaban 2.5 mg 12/15/23 21:00 12/21/23 09:34 Apixaban 2.5 Mg Tablet PO 2.5 mg Q12HR AMOR Administration Aspirin 81 mg 12/16/23 09:00 12/21/23 09:34 Aspirin 81 Mg Enteric Tablet PO 81 mg DAILY AMOR Administration Bumetanide 1 mg/ Bumetanide 0. 1.5 mg 12/20/23 17:00 12/21/23 09:34 5 mg PO 1.5 mg BID AMOR Administration Ferrous Sulfate 325 mg 12/16/23 17:00 12/21/23 09:34 Ferrous Sulfate [address] PO 325 mg BID AMOR Administration Hydralazine HCl 10 mg 12/16/23 13:00 12/21/23 09:34 Hydralazine 10 Mg Tablet PO 10 mg TID AMOR Administration Isosorbide Mononitrate 30 mg 12/17/23 09:00 12/21/23 09:34 Isosorbide Mononitrate 30 Mg Tab.Er.24h PO 30 mg DAILY AMOR Administration Losartan Potassium 100 mg 12/16/23 11:00 12/16/23 12:27 Losartan Potassium 100 Mg Tablet PO 100 mg DAILY AMOR Administration Multivitamins Therapeutic 1 tablet 12/16/23 09:00 12/21/23 09:34 Multivitamins Therapeutic Tab (*Bkc) PO 1 tablet DAILY AMOR Administration Pravastatin Sodium 80 mg 12/16/23 21:00 12/20/23 21:17 Pravastatin Sodium 20 Mg Tablet PO 80 mg HS AMOR Administration Senna/Docusate Sodium 1 tab 12/16/23 21:00 12/20/23 21:17 Senna/Docusate Sodium Tablet PO 1 tab HS AMOR Administration Radiology Results: ITS Impressions Abdomen/Pelvis CT 12/15/23 16:22 IMPRESSION: 1. Bilateral pleural effusion with adjacent atelectasis. 2. Minimal pericardial effusion. Minimal cardiomegaly. 3. Ascites. 4. Thickened wall of the gallbladder. Acalculous cholecystitis cannot be excluded. 5. Medial condyle with slight fullness of the left renal pelvis and ureter. 6. Slightly dilated small bowel loops in the pelvis. Early obstruction cannot be excluded. Follow-up advised. 7. Right inguinal hernia with fluid content. Venous Doppler Study 12/16/23 14:43 IMPRESSION: Negative bilateral lower extremity venous US. No deep vein thrombosis. Chest X-Ray 12/17/23 09:45 Impression: Small bilateral pleural effusions. Labs Labs: Laboratory Tests 12/21/23 05:54 12/21/23 05:54 Calcium 9.0 Phosphorus 5.3 H Magnesium 1.9 Total Bilirubin 0.9 AST 43 ALT 37 Alkaline Phosphatase 32 L Total Protein 7.0 Albumin 3.7
[2023-12-21 12:00] VITALS: PULSE 69
[2023-12-21 14:00] VITALS: BP 122/62; PULSE 70; RESP 18; TEMP 36.5; O2SAT 95
--- NOTE | 2023-12-21 14:06 | P.DS_ITS ---
DS: Admitting Diagnosis Discharge Date 12/21/23 Admitting Diagnosis Acute on Chronic CHF DS: Discharge Diagnosis Discharge Diagnosis (1) CHF exacerbation: Code(s): I50.9 - Heart failure, unspecified Status: Acute Assessment and Plan: Patient presented with complaints of shortness of breath and increased lower extremity edema and abdominal distention. BNP 22,000 on admission. Chest x-ray shows cardiomegaly with cardiac decompensation and pulmonary edema and bilateral pleural effusion with ascites. He received IV Lasix 80 mg in the ED. Currently not requiring oxygen. 12/19/23: * Cardiology would like to continue with IV diuresis today 12/20/23: * Cardiology changed IV Bumex to po today and will likely discharge tomorrow to follow up with pt's own Supplies Packer, Dr. Ford. He appears to have decreased edema today and lung sounds are clear. 12/21/23. * Appears medically stable for discharge and cleared by Cardiology and Nephrology. * Cardiology recommends diuresis with Bumex 1 mg BID. * ECHO this admission global systolic function EF approximately 40%, biatrial dilation. * Advised on low-sodium diet, strict I&O's, and weight monitoring. * 96.1 kg today, down 6lbs over 24 hours * Venous duplex negative for DVT * Continue thigh high DWAIN hose and diane. LE elevation. * Continue Eliquis 2.5 mg PO BID for A-Fib. (2) UTI (urinary tract infection): Code(s): N39.0 - Urinary tract infection, site not specified Status: Acute Assessment and Plan: 12/21/23: UA concerning of infection. cloudy colored urine with positive nitrates, 3+ leukocytes, pyuria, and 4+ bacteria. Normal WBC with elevated neutrophils. Patient has urostomy. * Urine culture is growing gram negative bacilli * He was started on Rocephin. * Urine culture grew klebsiella. * Abx treatment completed inpatient. 12/20/23: * Pt to finish his Cefdinir today. * He is not meeting SIRS/Sepsis criteria. * Urine is clear and light yellow appearing. (3) Chronic kidney disease, stage 4 (severe): Code(s): N18.4 - Chronic kidney disease, stage 4 (severe) Status: Chronic Assessment and Plan: 12/21/23: Creatinine seems to be at baseline 2.10 with GFR 30. Potassium 4.0, phosphorus pending * Diuresis with assistance of nephrology, cardiology. Rec's appreciated * Currently receiving Bumex 1 mg IVP BID and metolazone 2.5 mg PO one time * Urostomy to Blake bag, strict I&O. * Net negative > 8L this admission 12/20/23: * Output continues to be improving with 4050 out in last 24 hours, net negative [id number] during this admission. * Weight 96.1 kg today, down from 106.8 kg on admission. * Continue accurate I&O and daily weights. (4) Diarrhea: Code(s): R19.7 - Diarrhea, unspecified Status: Acute Assessment and Plan: Patient reports watery stool of the last few days. Today stool is semi formed and he is passing flatus. CT abdomen and pelvis showed mildly dilated loops of small bowel. He denies abdominal pain, nausea, vomiting. His abdomen is distended with tinkling bowel sounds. 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 Sodium on admission was 123. Sodium 135 from 09/10/23. He feels weak. 12/21/23 * Improved with diuresis * Fluid restriction 1.2 L * Seen by Nephrology. 12/20/23: * Continue fluid restriction. * Sodium remains stable at 130. * Urine osmolality is normal at 270 * Urine sodium is 75. * Nephrology is following. (6) Hypokalemia: Code(s): E87.6 - Hypokalemia Status: Acute Assessment and Plan: 12/21/23 * Likely related to diuresis. * Continue to replete as needed. * monitor and replenish keep K+ >4.0 * Will be discharged with PO potassium and f/u closely with PCP. 12/20/23: * 3.1 again today. * 60 mEq KCL ordered for oral replacement. Plan Code status: Full code per patient DVT prophylaxis: Eliquis Stress ulcer prophylaxis: Protonix 40 daily PT/OT notes: PT/OT: Recommend home Disposition: Patient stable for home discharge. DS: Summary Hospital Course Reason for hospitalization: SOB, increased diane. LE edema, Acute on Chronic CHF. Hospital Course: Patient admitted with increased SOB, increased diane. LE edema related to Acute on Chronic CHF. Patient diuresed and placed on fluid restriction. diane. LE edema almost resolved with SOB resolved. Patient was followed with Cardiology and Nephrology and have cleared patient for discharge. Pt with ALIN on CKD on admission likely secondary to fluid overload. Kidney function currently at baseline. He had episodes of hypokalemia likely related to diuresis and his potassium was replaced. Patient to be discharged home on PO potassium as well. No signs of distress noted or reported prior to d/c and pt is medically stable for discharge. Time spent discussing smoking cessation with patient: more than 10 minutes Status at Discharge Cognitive/behavioral status at discharge: Medically stable. Functional status at discharge: independent ambulation Overall status at discharge: patient is back to baseline Time Spent with Patient Time attestation: Total time spent providing and/or coordinating discharge services: > 30 minutes Time spent: Greater than 30 minutes Exam Narrative: General: appears comfortable, in no acute distress Respiratory: breathing is unlabored with even chest rise/fall, lungs diminished, Cardiovascular: Rate and rhythm regular, normal s1s2, no murmur Abdomen: distended, soft, active bowel sounds, non-tender, active bowel sounds. Urostomy present with clear yellow urine. Extremities: No cyanosis. Bilateral lower extremity edema with right greater than left, 12 pitting to bilateral feet legs. 1+ edema to diane. LE. Neuro: A&O x 4, pleasant, good insight and judgement Skin: Warm, dry, intact DS: Data Data Completed and Pending Pending studies at discharge: None Labs on day of discharge: Labs from last 24 hours 12/21/23 05:54 WBC 6.4 RBC 3.64 L Hgb 12.0 L Hct 35.2 L MCV 96.7 MCH 33.0 MCHC 34.1 RDW 12.6 Plt Count 187 MPV 9.9 Immature Gran % (Auto) 0.3 Neut % (Auto) 66.2 Lymph % (Auto) 18.1 L Hitchcock % (Auto) 9.1 H Eos % (Auto) 5.5 H Baso % (Auto) 0.8 Lymph # (Auto) 1.15 Hitchcock # (Auto) 0.6 Eos # (Auto) 0.4 H Baso # (Auto) 0.1 Abs Immat Gran (auto) 0.02 Absolute Neuts (auto) 4.2 Absolute Nucleated RBC 0.000 Nucleated RBC % 0.0 Sodium 130 L Potassium 3.1 L Chloride 89 L Carbon Dioxide 34 H Anion Gap 7 BUN 36 H Creatinine 2.20 H Estim Creat Clear Calc 26 Estimated GFR 28 L Glucose 99 Calcium 9.0 Phosphorus 5.3 H Magnesium 1.9 Total Bilirubin 0.9 AST 43 ALT 37 Alkaline Phosphatase 32 L Total Protein 7.0 Albumin 3.7 Discharge Plan Discharge Attending physician on discharge: Frank Recinos Consulting providers: Eladio Acuña; Criselda Bell Discharging Clinician: Ba Hansen Anticipated Discharge Date/Time: 12/21/23 14:41 Patient Disposition: Home, Self-Care Activity: as tolerated Diet: low sodium Discharge Instructions: Fluid restriction 1200 ML daily. Patient Instructions: Antibiotic Form, Low-Sodium Diet (DC), Fluid Restriction (DC) Patient Language: Kazakh Stand Alone Forms: General Discharge Information Follow-up/Referrals: Stef,Valentín Zavaleta MD [Primary Care Provider] - 1 Week Discharge Medications: New ferrous sulfate 325 mg (65 mg iron) Tablet,Delayed Release (Dr/Ec) 325 mg PO BID Qty: 30 0RF losartan 100 mg Tablet 100 mg PO DAILY Qty: 30 0RF bumetanide 1 mg Tablet 1 mg PO BID Qty: 60 0RF potassium chloride 20 mEq tablet,ER particles/crystals 20 meq PO BID Qty: 60 0RF Continued Eliquis 2.5 mg tablet 2.5 mg PO BID isosorbide mononitrate 30 mg tablet extended release 24 hr 30 mg PO DAILY losartan 100 mg tablet 100 mg PO DAILY hydralazine 10 mg tablet 10 mg PO TID amlodipine 5 mg tablet 5 mg PO DAILY Rx Instructions: AM multivitamin [Multiple Vitamins] Tablet 1 tablet PO DAILY Hold Instructions: Resume on 11/14/19. aspirin [Aspir-81] 81 mg Tablet,Delayed Release (Dr/Ec) 81 mg PO DAILY Hold Instructions: Resume on 11/14/19. pravastatin 80 mg tablet 80 mg PO HS Discontinued furosemide 40 mg tablet 80 mg PO QAM Rx Instructions: pt is to take 80 mg daily potassium chloride 20 mEq tablet,ER particles/crystals 20 meq PO QAM Date of admission: 12/15/23 18:36 Primary Care Provider: Daniel,Valentín Zavaleta Admitting Provider: Joesph Santos Attending physician on admission: Kaylan Camarena Condition: Improved Quality VTE Prophylaxis VTE prophylaxis: mechanical ordered and pharmacologic ordered Hospitalist MIPS Heart Failure (Exclusion) Patient has history of Heart Transplant or Left Ventricular Assistive Device?: No IF YES, STOP HERE Heart Failure (Qualifier) Patient has current or prior documentation of LVEF less than or equal to 40%, or mod/servere depressed LVSF?: Yes IF NO, STOP HERE If Yes, Heart Failure (Qualifier) Patient was prescribed or already taking an Angiotensin-Converting Enzyme (JENNIFER) Inhibitor, or Antiotensin Receptor López (ARB): Yes Patient was prescribed or already taking bisoprolol, carvedilol, or sustained release metoprolol succinate: No If Medications not prescribed/taking Reason patient not prescribed/taking bisoprolol, carvedilol, or sustained realease metoprolol succinate: Patient reasons: pt declined or other pt reason
[2023-12-21] MEDS: POTASSIUM CHLORIDE 20 MEQ PACKET (FOR LIQUID) 40 MEQ PO (15:59)
== END 2023-12-21 16:10 | disposition home or self-care (01) | DRG 291 ==
LOC: ANHED 16:56 → ANH2MED 17:47
PROVIDERS: Nurse Practitioner; Nurse Practitioner Acute Care; Admitting Provider Internal Medicine; Emergency Provider Emergency Medicine; PCP Internal Medicine; Visit Provider Nurse Practitioner Adult Health
DX: I13.0 Hypertensive heart and chronic kidney disease with heart failure and stage 1 through stage 4 chronic kidney disease, or unspecified chronic kidney disease (principal); I50.23 Acute on chronic systolic (congestive) heart failure; E87.1 Hypo-osmolality and hyponatremia; N18.4 Chronic kidney disease, stage 4 (severe); I48.20 Chronic atrial fibrillation, unspecified; N39.0 Urinary tract infection, site not specified; E87.6 Hypokalemia; E78.5 Hyperlipidemia, unspecified; K81.9 Cholecystitis, unspecified; K40.90 Unilateral inguinal hernia, without obstruction or gangrene, not specified as recurrent; R19.7 Diarrhea, unspecified; Z79.01 Long term (current) use of anticoagulants; Z79.82 Long term (current) use of aspirin; Z85.51 Personal history of malignant neoplasm of bladder; Z95.0 Presence of cardiac pacemaker; Z85.46 Personal history of malignant neoplasm of prostate; Z93.6 Other artificial openings of urinary tract status
CPT/HCPCS: 36415; 71045; 74176; 80048; 80053; 80061; 81001; 82607; 82746; 83540; 83550; 83735; 83880; 83930; 83935; 84100; 84300; 84439; 84443; 84480; 85025; 85610; 85730; 87086; 87186; 93306; 93970; 96365; 96375; 97161; 99285; A9270; G0378; J0696; J1939; J1940; J3475; J3480; J7040

== ENCOUNTER 2024-03-05 08:21 | Outpatient (CLI) | payer MEDICARE, SELFPAY ==
[2024-03-05 08:59] LABS: Hematocrit 37.6 % (42.0-52.0); Hemoglobin 12.1 g/dL (14.0-18.0); Immature Platelet Fraction Pct 4.5 % (0.9-11.2); Mean Corpuscular HGB Conc 32.2 g/dl (32-36); Mean Corpuscular Hemoglobin 32.5 pg (26-34); Mean Corpuscular Volume 101.1 fl (80-100); Mean Platelet Volume 10.8 fl (7.4-10.4); Platelet Count Result 130 k/mm3 (150-375); Red Blood Count 3.72 M/mm3 (4.6-6.20); Red Cell Distribution Width 14.1 % (11.5-14.5); White Blood Count 6.6 K/mm3 (4.5-10.0)
[2024-03-05 09:39] LABS: Albumin Level 4.3 g/dL (3.5-5.1); Anion Gap 9 mmol/L (4-12); Blood Urea Nitrogen 28 mg/dL (9-20); Calcium 9.3 mg/dL (8.4-10.2); Carbon Dioxide 24 mmol/L (22-30); Chloride 104 mmol/L (98-107); Estimated Glomerular Filt Rate 33; Glucose 102 mg/dL (65-110); Phosphorus 4.8 mg/dL (2.5-4.5); Potassium 4.6 mmol/L (3.4-5.0); Sodium 137 mmol/L (137-145)
[2024-03-05 10:24] LABS: Creatinine Urine 41.5 mg/dL; Total Protein Urine Random 71 mg/dL; Ur Ttl Prot Creatinine Ratio 1.71 mg/mg (0-0.20)
[2024-03-05 10:31] LABS: Parathyroid Intact 78.7 pg/mL (14.5-75.2)
[2024-03-05 10:33] LABS: Vitamin D 25 Hydroxy 33.5 ng/mL
== END 2024-03-05 08:22 | disposition home or self-care (01) ==
LOC: ANHLAB 08:26
PROVIDERS: PCP Internal Medicine; Visit Provider Internal Medicine Nephrology
DX: E21.1 Secondary hyperparathyroidism, not elsewhere classified (principal); N18.4 Chronic kidney disease, stage 4 (severe)
CPT/HCPCS: 36415; 80069; 82306; 82570; 83970; 84156; 85027; 85055

== ENCOUNTER 2024-09-03 08:15 | Outpatient (CLI) | payer MEDICARE, SELFPAY ==
--- OUTSIDE RECORDS SUMMARY | 2024-09-03 08:18 | XMS_ITS | Encounter Summary ---
Author Organization [facility] Address [address] [place] [address] Care Team Providers Care Flight Kitchen Manager Name Role Phone Valentín Finch MD Primary Care Provider [phone] Encounter Details Date Type Department Care Team (Late st Contact Info) Description 02/02/2021 Lab Requisition [facility] [address], [place] [address] Elvin [place] MD [address] [place] [address] Social History Tobacco Use Types Packs/Day Years Used Date Smoking Tobacco: Never Assessed Sex and Gender Information Value Date Recorded Sex Assigned at Not on file Legal Sex Male 10:53 AM SOFTWARE TEAM LEADER Gender Identity Not on file Sexual Orientation Not on file documented as of this encounter Plan of Treatment Not on file documented as of this encounter Procedures Procedure Name Priority Date/Time Associated Diagnosis Comments DERMATOPATHOLOGY Routine 02/01/2021 3:33 AM SOFTWARE TEAM LEADER documented in this encounter Results * DERMATOPATHOLOGY (02/01/2021 3:33 AM SOFTWARE TEAM LEADER) Case Report Dermatopathology Report Case: [id number] Authorizing Provider: Elvin [place] MD Collected: 02/01/2021 03:33 AM Ordering Location: [facility] Received: 02/02/2021 06:01 AM Pathologist: Mateo Garcia MD Specimens: A) - Skin, left post crown B) - Skin, sternal notch 2:37 PM SOFTWARE TEAM LEADER DERMATOPATHOLOGY LABORATORY Final Diagnosis Specimen A. 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 Path # [id number]. B: BCCA vs SCCA. Path # [id number]. 1 2:37 PM [facility] DERMATOPATHOLOGY LABORATORY Gross Description Specimen A: Received is one formalin filled container labeled with the patient's name and designated left post crown. The specimen consists of a shave biopsy measuring 7s0y9tm. Jar 0. Specimen B: Received is one formalin filled container labeled with the patient's name and designated sternal notch. The specimen consists of a shave biopsy measuring 5e0y9mu. Jar 0. 1 2:37 PM [facility] DERMATOPATHOLOGY LABORATORY Microscopic Description Specimen A. SKIN, left post crown: Within the dermis there are aggregates of basaloid cells with a high nuclear to cytoplasmic ratio and peripheral palisading. Specimen B. SKIN, sternal notch: The epidermis shows parakeratosis, full thickness disorderly maturation of keratinocytes, mitoses at different levels, and dyskeratotic cells. 1 2:37 PM [facility] DERMATOPATHOLOGY LABORATORY Disclaimer An external and internal positive and negative controls are appropriate for the histochemical, immunohistochemical and immunofluorescence stain(s) in this case (if any), except where stated explicitly. The performance characteristics of the stain(s) cited in this report were developed and its performance characteristic determined by the Dermatopathology Laboratory at [facility], directed by Dr. Anne Garcia. These tests need not be, and therefore are not, approved by the [place] Food and Drug Administration. The tests are used for clinical purposes. Billing Codes Specimen Charges Stain Charges 15242 87676 1 1 1 2:37 PM [facility] DERMATOPATHOLOGY [facility]ORATORY Embedded Images 1 2:37 PM [facility] DERMATOPATH[facility]ORY Pathology/Cytology TISSUE SPECIMEN FROM SKIN / Unknown 02/01/2021 3:33 AM SOFTWARE TEAM LEADER 02/02/2021 6:01 AM SOFTWARE TEAM LEADER Miscellaneous samples (specimen) TISSUE SPECIMEN FROM SKIN / Unknown 02/01/2021 3:33 AM SOFTWARE TEAM LEADER 02/02/2021 6:01 AM SOFTWARE TEAM LEADER us Elvin [place] MD LAB - PATHOLOGY/CYTOLOGY ORDER GALINA Final Result DERMATOPATHOLOGY LABORATORY [facility] - Department of Dermatology [facility] [address] [place] [address], [address] [phone] documented in this encounter Visit Diagnoses Not on filedocumented in this encounter Care Teams Flight Kitchen Manager Relationship Specialty Start Date End Date Valentín Finch MD [address] [place] [address] [address] [place] [address] PCP - General 04/02/18 documented as of this encounter
--- OUTSIDE RECORDS SUMMARY | 2024-09-03 08:18 | XMS_ITS | Encounter Summary ---
Author Organization [facility] Address [address] [facility] [place] [address] Care Team Providers Care Electrical Line Splicer Name Role Phone Valentín Finch MD Primary Care Provider [phone] Encounter Details Date Type Department Care Team (Late st Contact Info) Description 08/04/2020 Lab Requisition [facility] Lab [address] [facility], [place] [address] Elvin [place] MD [address] [place] [address] Social History Tobacco Use Types Packs/Day Years Used Date Smoking Tobacco: Never Assessed Sex and Gender Information Value Date Recorded Sex Assigned at Not on file Legal Sex Male 10:53 AM DIRECTOR TRANSITION Gender Identity Not on file Sexual Orientation Not on file documented as of this encounter Plan of Treatment Not on file documented as of this encounter Procedures Procedure Name Priority Date/Time Associated Diagnosis Comments DERMATOPATHOLOGY Routine 08/02/2020 3:33 AM CDT documented in this encounter Results * DERMATOPATHOLOGY (08/02/2020 3:33 AM CDT) Case Report Dermatopathology Report Case: [id number] Authorizing Provider: Elvin [place] MD Collected: 08/02/2020 03:33 AM Ordering Location: [facility] Received: 08/04/2020 07:04 AM Pathologist: Yvette Ramirez MD Specimens: A) - Skin, right mid scalp B) - Skin, right arm C) - Skin, left lower back 2:45 PM CDT DERMATOPATHOLOGY LABORATORY Final Diagnosis Specimen A. 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 Path# [id number]. B: BCCA vs SCCA. Path# [id number]. C: BCCA vs SCCA. Path# [id number]. 1 2:45 PM CDT DERMATOPATHOLOGY LABORATORY Gross Description Specimen A: Received is one formalin filled container labeled with the patient's name and designated right mid scalp. The specimen consists of a shave biopsy measuring 9o4t5en. Jar 0. Specimen B: Received is one formalin filled container labeled with the patient's name and designated right arm. The specimen consists of a shave biopsy measuring 7q2g4xp, bisected. Jar 0. Specimen C: Received is one formalin filled container labeled with the patient's name and designated left lower back. The specimen consists of a shave biopsy measuring 4z6l8yu. Jar 0. 1 2:45 PM CDT DERMATOPATHOLOGY LABORATORY Microscopic Description Specimen A. SKIN, right mid scalp: Within the dermis there are aggregates of basaloid cells with a high nuclear to cytoplasmic ratio and peripheral palisading. Specimen B. SKIN, right arm: The epidermis shows parakeratosis, full thickness disorderly maturation of keratinocytes, mitoses at different levels, and dyskeratotic cells. The lesion extends to the base of the biopsy. COMMENT: An invasive squamous cell carcinoma cannot be ruled out. Specimen C. SKIN, left lower back: The epidermis shows parakeratosis, full thickness disorderly maturation of keratinocytes, mitoses at different levels, and dyskeratotic cells. 2:45 PM CDT DERMATOPATHOLOGY LABORATORY Disclaimer An external and internal positive and negative controls are appropriate for the histochemical, immunohistochemical and immunofluorescence stain(s) in this case (if any), except where stated explicitly. The performance characteristics of the stain(s) cited in this report were developed and its performance characteristic determined by the Dermatopathology Laboratory at [facility], directed by Dr. Anne Garcia. These tests need not be, and therefore are not, approved by the [place] Food and Drug Administration. The tests are used for clinical purposes. Billing Codes Specimen Charges Stain Charges 94615 22914 08879 1 1 1 1 2:45 PM CDT DERMATOPATHOLOGY LABORATORY Embedded Images 1 2:45 PM CDT DERMATOPATHOLOGY LABORATORY Pathology/Cytology TISSUE SPECIMEN FROM SKIN / Unknown 08/02/2020 3:33 AM CDT 08/04/2020 7:04 AM CDT Miscellaneous samples (specimen) TISSUE SPECIMEN FROM SKIN / Unknown 08/02/2020 3:33 AM CDT 08/04/2020 7:04 AM CDT Miscellaneous samples (specimen) TISSUE SPECIMEN FROM SKIN / Unknown 08/02/2020 3:33 AM CDT 08/04/2020 7:04 AM CDT Elvin [place] MD LAB - PATHOLOGY/CYTOLOGY ORDER GALINA Final Result DERMATOPATHOLOGY LABORATORY [facility] - Department of Dermatology [facility] [address] [place] [address], [address] [phone] documented in this encounter Visit Diagnoses Not on filedocumented in this encounter Care Teams Electrical Line Splicer Relationship Specialty Start Date End Date Valentín Finch MD [address] [place] [address] [address] [place] [address] PCP - General 04/02/18 documented as of this encounter
--- OUTSIDE RECORDS SUMMARY | 2024-09-03 08:18 | XMS_ITS ---
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 Past Treatment and Therapy Plans No past plan information found. Lifetime Dose Tracking * Chemical Lifetime Dose Automatic Entry Manual Entr y DLP 3,279 mGycm 3,279 mGycm 0 mGycm Resolved Problems Problem Noted Date Diagnosed Date Resolved Date Acute pain due to trauma 11/20/2019 Syncope and collapse 11/20/[address] segment changes on electrocardiogram 11/20/2019 01/21/2020 ALIN (acute kidney injury) 11/20/2019 Occipital scalp laceration 11/20/2019 1 03/22/2019 Subdural hematoma 11/19/2019 01/23/2020 Subarachnoid hemorrhage 11/19/201912/28
--- OUTSIDE RECORDS SUMMARY | 2024-09-03 08:18 | XMS_ITS | Encounter Summary ---
Author Organization [facility] Address [address] [place] [address] Care Team Providers Care Manager Application Name Role Phone Valentín Finch MD Primary Care Provider [phone] Encounter Details Date Type Department Care Team (Late st Contact Info) Description 03/28/2022 Lab Requisition [facility] Lab [address] [facility] [facility] [place] [address] Elvin [place] MD [address] [place] [address] Social History Tobacco Use Types Packs/Day Years Used Date Smoking Tobacco: Never Assessed Sex and Gender Information Value Date Recorded Sex Assigned at Not on file Legal Sex Male 10:53 AM EXECUTIVE HOUSEKEEPER Gender Identity Not on file Sexual Orientation Not on file documented as of this encounter Plan of Treatment Not on file documented as of this encounter Procedures Procedure Name Priority Date/Time Associated Diagnosis Comments DERMATOPATHOLOGY Routine 03/28/2022 12:0 0 AM EXECUTIVE HOUSEKEEPER documented in this encounter Results * DERMATOPATHOLOGY (03/28/2022 12:00 AM EXECUTIVE HOUSEKEEPER) Case Report Dermatopathology Report Case: [id number] Authorizing Provider: Elvin [place] MD Collected: 03/28/2022 12:00 AM Ordering Location: [facility] Received: 03/28/2022 04:43 PM Pathologist: Yvette Ramirez MD Specimen: Skin, left deltoid 3 4:23 PM EXECUTIVE HOUSEKEEPER DERMATOPATHOLOGY LABORATORY Final Diagnosis Specimen A. 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 The specimen consists of a shave biopsy measuring 8x6x1 mm. Jar 0. 3 4:23 PM [facility] Microscopic Description Specimen A. SKIN, left deltoid: Within the dermis there are aggregates of basaloid cells with a high nuclear to cytoplasmic ratio and peripheral palisading. 3 4:23 PM [facility]MAT[facility]ATH[facility] Disclaimer An external and internal positive and negative controls are appropriate for the histochemical, immunohistochemical and immunofluorescence stain(s) in this case (if any), except where stated explicitly. The performance characteristics of the stain(s) cited in this report were developed and its performance characteristic determined by the Dermatopathology Laboratory at [facility], directed by Dr. Anne Garcia. These tests need not be, and therefore are not, approved by the [place] Food and Drug Administration. The tests are used for clinical purposes. Billing Codes Specimen Charges Stain Charges 90021 1 3 4:23 PM [facility] Embedded Images 3 4:23 PM [facility] Pathology/Cytolog y TISSUE SPECIMEN FROM SKIN / Unknown 03/28/2022 03/28/2022 4:43 PM EXECUTIVE HOUSEKEEPER us Elvin [place] MD LAB - PATHOLOGY/CYTOLOGY ORDER GALINA Final Result DERMATOPATHOLOGY LABORATORY [facility] - Department of Dermatology [facility] Medicine [address] [place] [address], [address] [place] [address], [facility] [phone] documented in this encounter Visit Diagnoses Not on filedocumented in this encounter Care Teams Manager Application Relationship Specialty Start Date End Date Valentín Finch MD [address] [address] [address] [place] [phone] PCP - General 04/02/18 documented as of this encounter
--- OUTSIDE RECORDS SUMMARY | 2024-09-03 08:18 | XMS_ITS | Clinical Summary ---
Author Organization [place] [id number] Address [address] [place] [address] Care Team Providers Care Screening Specialist Name Role Phone Valentín Finch MD Primary Care Provider Vickey Martinez MD Unavailable [phone] Allergies No known active allergies Medications metoprolol XL (TOPROL-XL) 100 mg 24 hr tabletIndications :hypertension Take 50 mg by mouth daily Active potassium chloride (KLOR-CON) 20 mEq packet Take 20 mEq by mouth daily Active pravastatin (PRAVACHOL) 80 mg tablet Take 80 mg by mouth nightly Active aspirin 81 mg enteric coated tablet Take 81 mg by mouth daily Active multivitamin/iron /folic acid (CENTRUM COMPLETE ORAL) Take 1 tablet by mouth daily Active traMADoL (ULTRAM) 50 mg tablet Take 1 tablet (50 mg total) by mouth every 6 (six) hours as needed for pain 10 tablet 0 Active apixaban (ELIQUIS) 2.5 mg tabletIndications :atrial fibrillation Take 1 tablet (2.5 mg total) by mouth every 12 (twelve) hours 60 tablet 3 0 Active hydrALAZINE (APRESOLINE) 10 mg tabletIndications :hypertension Take 1 tablet (10 mg total) by mouth 3 (three) times a day 90 tablet 11 0 Active isosorbide mononitrate ER (IMDUR) 30 mg 24 hr tablet Take 1 tablet (30 mg total) by mouth daily 30 tablet 11 0 Active acetaminophen (TYLENOL) 325 mg tabletIndications :Pain Take 325 mg by mouth every 6 (six) hours as needed for pain. Indications: pain Active nitrofurantoin monohydrate (Macrobid) 100 mg capsuleIndication s:Prophylaxis, Medical Take 100 mg by mouth 2 (two) times a day. 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 11/20/2019 Thyroid nodule 11/20/2019 Bladder mass 11/20/2019 Hypertension 11/19/2019 Resolved Problems Problem Noted Date Diagnosed Date Resolved Date Acute pain due to trauma 11/20/2019 Syncope and collapse 11/20/[address] segment changes on electrocardiogram 11/20/2019 01/21/2020 ALIN (acute kidney injury) 11/20/2019 Occipital scalp laceration 11/20/2019 1 03/22/2019 Subdural hematoma 11/19/2019 01/23/2020 Subarachnoid hemorrhage 11/19/201912/28 Immunizations Immunization Administration Dates Next Due Influenza, Quadrivalent, Split, Intramuscular Influenza, Trivalent, High D ose, Split, Preservative Free, Intramuscular 12/27/2018 Influenza, Trivalent, IM (MDV) 12/16/2013,2012 Pneumococcal Conjugate PCV 13 06/23/2014 Surgical History Surgery Date Site/Laterality Comments HERNIA REPAIR TONSILLECTOMY Medical History Medical History Date Comments Hypertension Hyperlipidemia Subarachnoid hemorrhage (HCC) 11/19/2019 Subdural hematoma (HCC) 11/19/2019 Malignant neoplasm of prostate (HCC) 01/08/2020 Added automatically from request for surgery [id number] Bladder mass 11/20/2019 ALIN (acute kidney injury) 11/20/2019 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 Never 11/18/2019 Average Number of Drinks Not on file 020 Frequency of Binge Drinking Not on file 10/28 Personal Safety Answer Date Recorded Getting School Help Needed Not on file 02/20 Sex and Gender Information Value Date Recorded Sex Assigned at Not on file Legal Sex Male 12:26 AM UX SPECIALIST Gender Identity Not on file Sexual Orientation Not on file Obstetrics History Last Filed Vital Signs Vital Sign Reading Time Taken Comments Blood Pressure 140/80 03/08/2020 11:00 AM UX SPECIALIST Pulse 55 03/08/2020 11:00 AM UX SPECIALIST Temperature 36.5 C (97.7 F) 03/08/2020 11:00 AM UX SPECIALIST Respiratory Rate 18 03/08/2020 11:00 AM UX SPECIALIST Oxygen Saturation 98% 03/08/2020 11:00 AM UX SPECIALIST Inhaled Oxygen Concentration - - Weight 81.6 kg (180 lb) 03/04/2020 11:21 AM UX SPECIALIST Height 190.5 cm (6' 3) 02/02/2020 10:37 AM UX SPECIALIST Body Mass Index 22.5 02/02/2020 10:37 AM UX SPECIALIST Plan of Treatment Not on file Medical Devices Implanted Type Area Language Instructor Device Identifier Shelf Expiration Date Model / Serial / Lot [employer] Leonel 160-210 7fr 80cm Open Tip Luer Lock Adapter Guidewire Graduate Straight Latex Free - [id number] Implanted:Qty: 2 on 01/26/2020 by Vickey Martinez MD at [facility] Stent Bilateral: Ureter [employer] Leonel 07/13/2023 160-210 / / [id number] Insurance [facility] [employer] [facility] [place] [employer] Address: [address] [address] [place] [address] MEDICARE [employer]AGE [facility] [place] [employer] Address: [address] [address] [place] [address] DUAL COMPLETE OOS [id number] [place] AET[employer] MEDICARE Advance Directives For more information, please contact: [phone] Documents on File Type Date Recorded Patient Hospice Executive Director Expl anation ADVANCE DIRECTIVE 04/18/2020 11:17 AM ADVANCE DIRECTIVE 01/23/2020 10:00 AM * Full Code (Latest Code Status on File) Date Activated Date Inactivated Comments 01/26/2020 5:18 PM 01/31/2020 6:21 PM * Full Code Date Activated Date Inactivated Comments 11/18/2019 9:28 PM 11/21/2019 3:46 PM Care Teams Screening Specialist Relationship Specialty Start Date End Date Valentín Finch MD [address] [address] PCP - General 11/18/19 [place] [address] [address] Consulting Physician Urology 01/31/20
--- OUTSIDE RECORDS SUMMARY | 2024-09-03 08:18 | XMS_ITS | Encounter Summary ---
Author Organization [facility] Address [address] [place] [address] Care Team Providers Care Per Diem Physical Therapist Assistant Name Role Phone Valentín Finch MD Primary Care Provider Vickey Martinez MD Unavailable [phone] Encounter Details Date Type Department Care Team (Late st Contact Info) Description 01/23/2020 Documentation [facility] Wound Ostomy [address] [place] [address] Destinee Torres RN Social History Tobacco Use Types Packs/Day Years [...] of Binge Drinking Not on file 10/28 Sex and Gender Information Value Date Recorded Sex Assigned at Not on file Legal Sex Male 12:26 AM MANAGER PSYCHIATRY Gender Identity Not on file Sexual Orientation Not on file documented as of this encounter Plan of Treatment Not on file documented as of this encounter Visit Diagnoses Not on filedocumented in this encounter Care Teams Per Diem Physical Therapist Assistant Relationship Specialty Start Date End Date Valentín Finch MD [address] [facility] [address] [place] [address] PCP - General 11/18/19 [place] [address] [place] [address] Consulting Physician Urology 01/31/20 documented as of this encounter
--- OUTSIDE RECORDS SUMMARY | 2024-09-03 08:18 | XMS_ITS | Continuity of Care Document ---
Author Organization [facility] Address [address] [place] [address] [address] [place] [address] Phone Care Team Providers Care Community Health Counselor Name Role Phone Tamiko Ellison Unavailable Unavailable Procedures Procedure Date Eye Exam & Treatment Eye Exam & Treatment Refraction Advance Directives Directive Yes / No Effective Date File Name No Information Encounters Encounter Description Practice Location Reason(s) For Visit Diagnoses Date Provider Providers Copied on Encounter [facility], [address] [place] [address] [address], [place], [place], [id number], tel:[phone] [facility] No Information 3-201 0 Terra Morrison. [address] , [address], [place], [address], [place]. tel:[phone] [facility], [address] [place] [address] [address], [place], [place], [id number], tel:[phone] [facility] No Information 9-200 8 Terra Marinelli [address] , [address], [place], [address], [place]. tel:[phone] Family History Family Member Type Diagnosis Age At Onset No Information Payers Payer name Insurance type Covered republican ID Authoriza tion(s) Medicare [facility] [id number] Social History Type Description Quantity Date Captured Comments Sex Male Smoking Status No Information Chief Complaint And Reason For Visit No Information Reason For Referral Reason For Referral No Information History Of Present Illness Encounter Date Complaint History Of Prese nt Illness No Information Functional Status Date Functional Assessmen t No Information Instructions Date Instruction Additional Infor mation No Information Assessments Type Assessment Date No Information Patient Care Teams Name Effective Dates (start - stop) Status Members No Information
--- OUTSIDE RECORDS SUMMARY | 2024-09-03 08:18 | XMS_ITS | Clinical Summary ---
Author Organization [facility] Address [address] [place] [address] Phone Care Team Providers Care Agricultural Produce Commission Agent Name Role Phone Valentín Finch MD Primary Care Provider [phone] Allergies No known active allergies Medications acetaminophen (TYLENOL) 325 MG tablet Take 325 mg by mouth Active amLODIPine (Norvasc) 5 MG tablet daily 02/25/1969 Active Eliquis 2.5 MG tablet 02/02/2022 Active aspirin (ST MONTSERRAT) 81 MG EC tablet Take 81 mg by mouth in the morning. Active furosemide (LASIX) 40 MG tablet 60 mg 01/09/2022 Active hydrALAZINE (APRESOLINE) 10 MG tablet 01/12/2022 Active isosorbide mononitrate (IMDUR) 30 MG 24 hr tablet 01/12/2022 Active losartan (COZAAR) 100 MG tablet Take 100 mg by mouth 1 (one) time each day 01/12/2022 Active potassium chloride (K-TAB) 20 MEQ CR tablet 02/02/2022 Ac tive pravastatin (PRAVACHOL) 80 MG tablet 12/12/2021 Active Multiple Vitamins-Iron (Multi-Day Plus Iron) tablet MULTI-DAY TABS 02/23/2020 Active Active Problems Problem Noted Date Diagnosed Date Benign prostatic hyperplasia 02/08/2022 Chronic kidney disease, Stage IV (severe) 2021 High degree second degree atrioventricular block 03/21/2021 Atrial fibrillation 02/10/2020 Mixed hyperlipidemia 11/20/2019 Hypertension 11/19/2019 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 Aortic valve stenosis 06/09/2016 Immunizations Immunization Administration Dates Next Due Influenza Split High Dose Pr eservative Free IM 01/17/2022,11/27/2019,12/27/2018,12/14,12/05/2016,12/10/2015 Influenza TIV (IM) 12/16/2013,12/10/2012 Influenza, Injectable, Quadrivalent 12/02/2020,1 02/26/2018,12/22/2014 Pfizer Sars-cov-2 Vaccination 12/02/2020, 021,04/25/2020 Pneumococcal Conjugate 13-Valent 06/23/2014 Pneumococcal Polysaccharide 12/27/2006 Family History Medical History Relation Comments Kidney disease Neg Hx Social History Tobacco Use Types Packs/Day Years Used Date Smoking Tobacco: Former Cigarettes Smokeless Tobacco: Never Tobacco Cessation:Counseling Given: Not Answered Alcohol Use Standard Drinks/Week Comments Yes 0 (1 standard drink = 0.6 oz pur e alcohol) 1 or two beers occasionally Sex and Gender Information Value Date Recorded Sex Assigned at Not on file Legal Sex Male 9:11 AM MST Gender Identity Not on file Sexual Orientation Not on file Last Filed Vital Signs Vital Sign Reading Time Taken Comments Blood Pressure 134/60 02/08/2022 9:59 AM E COMMERCE STRATEGIST Pulse 60 02/08/2022 9:59 AM E COMMERCE STRATEGIST Temperature 36.1 C (97 F) 02/08/2022 9:59 AM E COMMERCE STRATEGIST Respiratory Rate - - Oxygen Saturation - - Inhaled Oxygen Concentration - - Weight 94.3 kg (208 lb) 02/08/2022 9:59 AM E COMMERCE STRATEGIST Height 190.5 cm (6' 3) 02/08/2022 9:59 AM E COMMERCE STRATEGIST Body Mass Index 26 02/08/2022 9:59 AM E COMMERCE STRATEGIST Plan of Treatment Health Maintenance Due Date Last Done Comments COVID-19 Vaccine ( season) 2023 12/02/2020, 05/16/2020, 04/25/2020 Influenza Vaccine (#1) 2024 12/16/2013, 2012 Pneumococcal PPSV23/PCV13 65 + Years / Low and Medium Risk Completed 06/23/2014, 12/27/2006 Insurance [employer] MEDICARE Care Teams Agricultural Produce Commission Agent Relationship Specialty Start Date End Date Valentín Finch MD [address] [phone] PCP - General Internal Medicine 01/27/22
--- OUTSIDE RECORDS SUMMARY | 2024-09-03 08:18 | XMS_ITS | Encounter Summary ---
Author Organization [facility] Address [address] [facility] [place] [address] Care Team Providers Care Tower Technician Name Role Phone Valentín Finch MD Primary Care Provider [phone] Encounter Details Date Type Department Care Team (Late st Contact Info) Description 09/27/2021 Lab Requisition [facility] [address] [facility], [place] [address] Elvin Toledo MD [address] [address] Social History Tobacco Use Types Packs/Day Years Used Date Smoking Tobacco: Never Assessed Sex and Gender Information Value Date Recorded Sex Assigned at Not on file Legal Sex Male 10:53 AM QUALITY ASSURANCE/R&D LAB TECHNICIAN Gender Identity Not on file Sexual Orientation Not on file documented as of this encounter Plan of Treatment Not on file documented as of this encounter Procedures Procedure Name Priority Date/Time Associated Diagnosis Comments DERMATOPATHOLOGY Routine 09/26/2021 3:33 AM CDT documented in this encounter Results * DERMATOPATHOLOGY (09/26/2021 3:33 AM CDT) Case Report Dermatopathology Report Case: [id number] Authorizing Provider: Elvin Toledo MD Collected: 09/26/2021 03:33 AM Ordering Location: [facility] Received: 09/27/2021 06:54 AM Pathologist: Argentina Azevedo MD Specimen: Skin, left lower neck 2 1:38 PM CDT DERMATOPATHOLOGY LABORATORY Final Diagnosis Specimen A. 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 SCCA. Path# [id number] 2 1:38 PM CDT DERMATOPATHOLOGY LABORATORY Gross Description Specimen A: Received is one formalin filled container labeled with the patient's name and designated left lower neck. The specimen consists of a shave biopsy measuring [id number]. Jar 0. 2 1:38 PM CDT DERMATOPATHOLOGY LABORATORY Microscopic Description Specimen A. SKIN, left lower neck: The epidermis shows parakeratosis, full thickness disorderly maturation of keratinocytes, mitoses at different levels, and dyskeratotic cells. 2 1:38 PM CDT DERMATOPATHOLOGY LABORATORY Disclaimer An external [...] purposes. Billing Codes Specimen Charges Stain Charges [id number] 1 2 1:38 PM CDT DERMATOPATHOLOGY LABORATORY Embedded Images 2 1:38 PM CDT DERMATOPATHOLOGY LABORATORY Pathology/Cytolo gy TISSUE SPECIMEN FROM SKIN / Unknown 09/26/2021 3:33 AM CDT 09/27/2021 6:54 AM CDT us Elvin Toledo MD LAB - PATHOLOGY/CYTOLOGY ORDER GALINA Final Result DERMATOPATHOLOGY LABORATORY [facility] - Department of Dermatology [address] [phone] documented in this encounter Visit Diagnoses Not on filedocumented in this encounter Care Teams Tower Technician Relationship Specialty Start Date End Date Valentín Finch MD [address] [place] [address] [address] [place] [id number] PCP - General 04/02/18 documented as of this encounter
--- OUTSIDE RECORDS SUMMARY | 2024-09-03 08:18 | XMS_ITS | Referral Summary ---
Author Organization [place] [id number] [facility] Address [address] [place] [address] Care Team Providers Care Customs Examiner Name Role Phone Valentín Finch MD Primary Care Provider Vickey Martinez MD Unavailable [phone] Allergies No known active allergies Medications [...] mouth 2 (two) times a day. rx [id number] Indications: Prophylaxis, Medical Active Active Problems Problem Noted Date Diagnosed Date Severe malnutrition 01/28/2020 Malignant neoplasm of prostate 01/08/2020 Overview (01/08/2020): Added automatically from request for surgery [id number] Mixed hyperlipidemia 11/20/2019 DJD (degenerative joint disease) [...] (MDV) 12/16/2013,2012 Pneumococcal Conjugate PCV 13 06/23/2014 Social History Tobacco Use Types Packs/Day Years [...] on file Legal Sex Male 12:26 AM BIOANALYST Gender Identity Not on file Sexual Orientation Not on file Last Filed Vital Signs Vital Sign Reading Time Taken Comments Blood Pressure 140/80 03/08/2020 11:00 AM BIOANALYST Pulse 55 03/08/2020 11:00 AM BIOANALYST Temperature 36.5 C (97.7 F) 03/08/2020 11:00 AM BIOANALYST Respiratory Rate 18 03/08/2020 11:00 AM BIOANALYST Oxygen Saturation 98% 03/08/2020 11:00 AM BIOANALYST Inhaled Oxygen Concentration - - Weight 81.6 kg (180 lb) 03/04/2020 11:21 AM BIOANALYST Height 190.5 cm (6' 3) 02/02/2020 10:37 AM BIOANALYST Body Mass Index 22.5 02/02/2020 10:37 AM BIOANALYST Plan of Treatment Not on file Medical Devices Implanted Type Area Brand Strategy Manager Device Identifier Shelf Expiration Date Model / Serial / Lot [employer] Leonel 160-210 7fr 80cm Open Tip Luer Lock Adapter Guidewire Graduate Straight Latex Free - [id number] Implanted:Qty: 2 on 01/26/2020 by Vickey Martinez MD at [facility] Stent Bilateral: Ureter [employer] Leonel 07/13/2023 160-210 / / [id number] Insurance MEDICARE ADVANTAGE [facility] Address: [facility] [address] [place] [id number] [place] [address] MEDICARE ADVANTAGE [facility] Address: [address] [address] [place] [address] [facility] DUAL COMPLETE OOS [id number] [place] AETNA MEDICARE Advance Directives For more information, please contact: [phone] Documents on File Type Date Recorded Patient Chute Loader Expl anation ADVANCE DIRECTIVE 04/18/2020 11:17 AM ADVANCE DIRECTIVE 01/23/2020 10:00 AM * Full Code (Latest Code Status on File) Date Activated Date Inactivated Comments 01/26/2020 5:18 PM 01/31/2020 6:21 PM * Full Code Date Activated Date Inactivated Comments 11/18/2019 9:28 PM 11/21/2019 3:46 PM Care Teams Customs Examiner Relationship Specialty Start Date End Date Valentín Finch MD [address] [facility] [address] [address] PCP - General 11/18/19 [place] [address] [address] Consulting Physician Urology 01/31/20
--- OUTSIDE RECORDS SUMMARY | 2024-09-03 08:18 | XMS_ITS | Clinical Summary ---
Author Organization [facility] Address [address] [facility] [place] [address] Care Team Providers Care Manager Loan Name Role Phone Valentín Finch MD Primary Care Provider Source Comments [facility],non-owned Affiliates and Associated Physician Practices is amultiple site organization consisting of ambulatory clinics and hospital sitesin [place], [place], [place] and [place]. This disclosure is being madepursuant to the Care Everywhere program and may not contain all information available regarding this patient. Last updated 17.[facility] Social History Tobacco Use Types Packs/Day Years Used Date Smoking Tobacco: Never Assessed Sex and Gender Information Value Date Recorded Sex Assigned at Not on file Legal Sex Male 10:53 AM METROLOGY MANAGER Gender Identity Not on file Sexual Orientation Not on file Plan of Treatment Health Maintenance Due Date Last Done Comments DTAP/TDAP/TD VACCINES (1 - Tdap) 1955 PNEUMOCOCCAL VACCINE 50+ (1 of 1 - PCV) 1986 ZOSTER VACCINE (1 of 2) 1986 Respiratory Syncytial Virus (RSV) Vaccine Pt: or over 60 yrs (1 - 1-dose 75+ series) 2011 COVID-19 VACCINE ( - 2023-2 5 season) 2023 DEPRESSION SCREENING 02/27/2024 INFLUENZA VACCINE (#1) 2024 HEPATITIS B VACCINE Aged Out No longe r eligible based on patient's age to complete this topic HIB VACCINE Aged Out No longer eligi ble based on patient's age to complete this topic HPV VACCINE Aged Out No longer eligi ble based on patient's age to complete this topic MENINGOCOCCAL (Group B) VACC INE SHARED DECISION-MAKING Aged Out No longer eligibl e based on patient's age to complete this topic MENINGOCOCCAL GROUPS A/C/Y/W VACCINE Aged Out No longer eligible b ased on patient's age to complete this topic Insurance AETNA Care Teams Manager Loan Relationship Specialty Start Date End Date Valentín Finch MD [address] [place] [address] [address] [place] [address] PCP - General 04/02/18
[2024-09-03 08:51] LABS: Hematocrit 39.4 % (42.0-52.0); Hemoglobin 13.0 g/dL (14.0-18.0); Immature Platelet Fraction Pct 4.4 % (0.9-11.2); Mean Corpuscular HGB Conc 33.0 g/dl (32-36); Mean Corpuscular Hemoglobin 32.9 pg (26-34); Mean Corpuscular Volume 99.7 fl (80-100); Platelet Count Result 125 k/mm3 (150-375); Red Blood Count 3.95 M/mm3 (4.6-6.20); White Blood Count 5.6 K/mm3 (4.5-10.0)
[2024-09-03 09:50] LABS: Parathyroid Intact 78.8 pg/mL (14.5-75.2)
[2024-09-03 10:20] LABS: Total Protein Urine Random 31 mg/dL; Ur Ttl Prot Creatinine Ratio 1.23 mg/mg (0-0.20)
[2024-09-03 16:24] LABS: Albumin Level 4.3 g/dL (3.5-5.1); Anion Gap 9 mmol/L (4-12); Blood Urea Nitrogen 41 mg/dL (9-20); Calcium 9.1 mg/dL (8.4-10.2); Carbon Dioxide 24 mmol/L (22-30); Chloride 102 mmol/L (98-107); Estimated Glomerular Filt Rate 29; Glucose 96 mg/dL (65-110); Potassium 4.3 mmol/L (3.4-5.0); Sodium 135 mmol/L (137-145)
[2024-09-03 17:08] LABS: Iron 75 ug/dL (49-181)
[2024-09-03 17:20] LABS: Percent Iron Saturation 23 % (20-50)
[2024-09-03 17:32] LABS: Vitamin B12 784.0 pg/mL (239-931)
[2024-09-03 17:44] LABS: Ferritin 58.80 ng/mL (11.1-264)
== END 2024-09-03 08:16 | disposition home or self-care (01) ==
PROVIDERS: PCP Internal Medicine; Visit Provider Internal Medicine Nephrology
DX: N18.4 Chronic kidney disease, stage 4 (severe) (principal); D63.1 Anemia in chronic kidney disease
CPT/HCPCS: 36415; 80069; 82570; 82607; 82728; 82746; 83540; 83550; 83970; 84156; 85027; 85055